=== PATIENT | male | born 1965 | race Caucasian/White ===

== ENCOUNTER 2020-10-11 12:41 | Emergency (ER) | payer BC, SELFPAY ==
--- NOTE | ~2020-10-11 | CT_ITS ---
EXAMINATION: CT ABDOMEN AND PELVIS WITH CONTRAST CLINICAL INFORMATION: Vomiting and bloody stools. Evaluate for colitis. COMPARISON: None TECHNIQUE: Multidetector volumetric images were obtained from the superior aspect of the liver through the pubic symphysis following administration 85 mL of Omnipaque 350 intravenous contrast. Sagittal and coronal reformatted images were obtained on the technologist's workstation. Oral contrast: No This CT examination was performed using dose optimization techniques as appropriate, variously including the following: *Automated exposure control *Adjustment of mA and/or kV according to patient size (this includes techniques or standardized protocols for targeted exams where dose is matched to indication/reason for exam; i.e. extremities or head) *Use of iterative reconstruction technique DLP: 889 mGy-cm FINDINGS: LUNG BASES: The visualized lung bases are unremarkable. LIVER, GALLBLADDER, AND BILIARY TREE: The liver is normal in size, shape, and attenuation. Scattered hepatic cysts. There are a few hypodensities which are too small to characterize but statistically also represent cysts. No suspicious liver lesions. No intra or extrahepatic biliary dilatation. Gallbladder unremarkable. PANCREAS: Unremarkable. SPLEEN: Unremarkable. ADRENAL GLANDS: Unremarkable. KIDNEYS AND URETERS: The kidneys are normal in size, shape, and attenuation. Subcentimeter cyst, right kidney. No hydronephrosis, hydroureter, or calculi seen. No perinephric stranding. BLADDER: Unremarkable. GASTROINTESTINAL TRACT: There is a large amount of fluid within the stomach. The small and large bowel are unremarkable. The appendix is unremarkable. Mild hazy increased attenuation of the small bowel mesentery with perivascular sparing. ABDOMINAL WALL: No significant hernia is appreciated. LYMPH NODES: Normal. VASCULAR: Unremarkable. PELVIC VISCERA: Prostate and seminal vesicles unremarkable. OSSEOUS STRUCTURES: No acute or suspicious osseous abnormalities. CT/CT abdomen pelvis w con IMPRESSION: * No evidence of colitis. * No acute intra-abdominal pathology. * Minimal haziness of the small bowel reflective of mild mesentery panniculitis, nonspecific.
--- NOTE | ~2020-10-11 | XR_ITS ---
EXAMINATION: XR CHEST CLINICAL INFORMATION: Vomiting. Rule out esophageal rupture. COMPARISON: None TECHNIQUE: 2 views of the chest were obtained. FINDINGS: There is a small left pleural effusion. No pneumothorax or pneumomediastinum is evident. The left lung is clear. The heart and mediastinal structures are normal. A nodular density overlying the posterior aspect of the right ninth rib measures 0.9 cm. This could represent nipple shadow or confluence of shadows. Pulmonary nodule is not excluded. The right lung is otherwise clear. XR/XR chest 2V IMPRESSION: 1. Small left pleural effusion, nonspecific. If there is ongoing concern for esophageal rupture, contrast examination the esophagus would be helpful. 2. 0.9 cm nodular density at the right lung base of undetermined significance. CT scan is suggested in further assessment.
[2020-10-11 12:56] VITALS: BP 138/69; PULSE 86; RESP 18; O2SAT 96; BMI 33.6
[2020-10-11 13:09] VITALS: BP 138/69; PULSE 86; RESP 18; TEMP 36.4; O2SAT 96
--- NOTE | 2020-10-11 13:13 | ED.NAVMDI ---
HPI - Nausea/Vomiting/Diarrhea General Chief complaint: Nausea/Vomiting/Diarrhea Stated complaint: n/v/d Time Seen by Provider: 10/11/20 12:42 Source: patient and EMS Mode of arrival: EMS Limitations: no limitations History of Present Illness HPI Narrative: 54 yo male with past medical history of hypothyroidism, depression, GERD here with complaints of nausea/vomiting/diarrhea/generalized abdominal cramping since 1am. Last night he made some brisket which he ate with friends. All friends are well with no reported GI symptoms. Had some reflux and nausea after which patient tells me is uncommon for him. Woke up at 1am with vomiting/diarrhea/abdominal cramping. Patient tells me he has had 13 episodes of diarrhea which is blood streaked and mucousy. No clots. Had 5 episodes of vomiting and last episode of vomiting was blood streaked. No chest pain, shortness of breath. 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 No anticoagulation use. On baby ASA daily. Recent low back pain which he has been taking naproxen BID for this past week. No alcohol use. No GI Bleed history. No fevers, chills, recent travel. Feels generally weak. Associated nausea: Yes Related Data Previous Rx's Medication Instructions Recorded dicyclomine 10 mg PO TID PRN #15 cap 10/11/20 ondansetron 4 mg PO Q6H PRN #10 tab 10/11/20 Allergies Allergy/AdvReac Type Severity Reaction Status Date / Time codeine Allergy Unknown unknown Verified 10/11/20 13:11 mint Allergy Unknown unknown Verified 10/11/20 13:11 Review of Systems Review of Systems: Yes all other systems are reviewed and are negative Constitutional: Constitutional: Reports no additional constitutional complaints, Denies body ache(s), Denies chills, Denies fever(s), Denies headache(s) and Denies weakness Eyes: Eyes: Reports no additional eye complaints and Denies change in vision ENT: Reports system reviewed and no additional complaints, except as documented, Denies dizziness, Denies headache(s), Denies nasal congestion, Denies nasal discharge and Denies neck pain Cardiovascular: Cardiovascular: Reports no additional cardiovascular complaints, Denies chest pain, Denies leg edema and Denies dyspnea Respiratory: Respiratory: Reports no additional respiratory complaints, Denies cough and Denies dyspnea Gastrointestinal: Gastrointestinal: Reports no additional gastrointestinal complaints, Reports abdominal pain, Reports hematochezia, Reports diarrhea, Reports nausea and Reports vomiting Genitourinary: Genitourinary: Denies urinary incontinence Musculoskeletal: Musculoskeletal: Reports no additional musculoskeletal complaints, Denies back pain, Denies arthralgias, Denies joint swelling, Denies neck pain, Denies numbness and Denies tingling Integumentary/Breasts: Skin/Breast: Reports system reviewed and no additional complaints, except as docu and Denies rash Neurologic: Reports system reviewed and no additional complaints, except as documented, Denies Abnormal speech present, Denies dizziness, Denies headache(s), Denies numbness, Denies tingling and Denies weakness PMF Past Medical History Attestation statement: The following information was validated with the patient. Source: old records reviewed and nursing notes reviewed Medical History Depression GERD (gastroesophageal reflux disease) Hypothyroidism Social History Social History Advance Directives: No Advance Directives Information Provided: No Physical Exam Vital Signs: Vital Signs: Last Vital Signs Temp 97.7 F 10/11/20 15:12 Pulse 93 10/11/20 15:12 Resp 16 10/11/20 15:12 BP 109/71 10/11/20 15:12 Pulse Ox 97 10/11/20 15:12 Body Mass Index 33.6 Const: General: cooperative, healthy appearing, comfortable and no acute distress Orientation/consciousness: patient oriented x3 Limitations: no limitations HENMT: Head: Yes normal to inspection Ears: hearing grossly normal bilaterally General nose exam: Normal external nose present Face and sinus: Yes normal facial exam Mouth: Normal oral and palatal mucosa present Throat: Yes posterior oropharynx normal Eyes: General: appearance normal, both eyes and all related structures Pupils: Equal, round and reactive pupils present Neck: Neck: Yes normal visual inspection Chest: Chest palpation & inspection: normal inspection of the chest Resp: Effort & Inspection: normal respiratory effort Auscultation: clear to auscultation bilaterally Cardio: Rate: regular rate Rhythm: regular rhythm Peripheral pulses: Peripheral pulses 2+ throughout GI: Other: Mild diffuse tenderness, no rebound or guarding. Inspection: Yes normal to inspection Palpation (GI): Soft to palpation, not firm, Tenderness to palpation present (GI) (diffusely) and no guarding Auscultation: normal bowel sounds Rectal Exam - Male: Yes Visual inspection abnormal, Yes normal sphincter tone and Yes Abnormal stool present (mucousy blood) Back/Spine/Pelvis: Thoracic/Lumbar Spine: thoracic and lumbar spine normal to inspection Skin: General skin exam: no rashes or lesions noted Neuro: General: patient oriented x3, no focal motor deficits and normal sensation to monofilament Cranial nerves: Yes Equal, round and reactive pupils present Cognition (Neuro): normal cognition Speech: No Abnormal speech present Gait exam (Neuro): Normal gait present Motor exam (neuro): 5/5 motor strength present throughout Extrem: General: Yes normal to inspection Course Course Course Narrative: 54 yo male here with vomiting, diarrhea, generalized abdominal cramping for <24 hrs. Reports of bloody mucousy stools and one episode of blood streaked vomiting. Patient tells me this occurred after 4 episodes of forceful retching. On exam HD stable. Mild diffuse abdominal tenderness. +heme stool (mucousy blood). No chest pain. Will need labs including lactic acid, UA, occult stool, COVID screen, CXR. 1345-WBC 18.1 from viral infection, multiple episodes of vomiting. 1440-Labs reassuring. Patient feeling improved. Will continue with IV fluids, then attempt PO trial. 1545-Returning colicky AP. D/t persistent pain will check CT A/P. No additional episodes of diarrhea/vomiting. Will repeat dose of analgesia. 1654-CT A/P unremarkable. Likely viral syndrome. Given bentyl with + effect. No additional diarrhea/vomiting during ED stay (>5 hrs). Reviewed worrisome signs/symptoms with patient and when to return to ED. Comfortable with discharge home. MDM - Nausea/Vomiting/Diarrhea MDM Narrative Medical decision making narrative: HUS, Boerhaave syndrome, GI Bleed Less likely HUS with no additional episodes, normal renal functio Less likely Boerhaave syndrome with normal CXR, no additional vomiting episodes, no chest pain/sob, HD stable Less likely GI bleed with no additional episodes, no risk factors for GI bleeding w/ exception of PRN NSAID use, normal hgb/BUN. Differential Diagnosis Differential diagnosis: Likely gastroenteritis Medical Records Attestation: I reviewed the patient's medical records. Lab Data Attestation: I reviewed the patient's lab results. Result diagrams: 10/11/20 13:20 10/11/20 13:20 Labs: Lab Results 10/11/20 10/11/20 10/11/20 Range/Units 13:20 13:20 13:20 WBC 18.1 H (4.8-10.8) X10*3/uL RBC 6.68 H (4.60-5.80) X10*6/uL Hgb 20.5 H (14.0-18.0) g/dl Hct 62.2 H (42-52) % MCV 93.1 (80-98) fL MCH 30.7 (27.0-33.0) pg MCHC 33.0 (31.0-36.0) g/dl RDW 11.9 (11.0-16.0) % Plt Count 293 (160-400) X10*3/uL MPV 10.6 (9.4-12.4) fL Immature Gran % (Auto) 0.4 (0.0-0.4) % Neut % (Auto) 83.1 H (45-73) % Lymph % (Auto) 6.3 L (20-40) % [place] % (Auto) 3.4 (2-11) % Eos % (Auto) 6.5 H (0-4) % Baso % (Auto) 0.3 (0-2) % Lymph # (Auto) 1.1 L (1.2-4.9) X10*3/uL [place] # (Auto) 0.6 (0.1-1.2) X10*3/uL Eos # (Auto) 1.2 H (0.0-0.4) X10*3/uL Baso # (Auto) 0.1 (0.0-0.2) X10*3/uL Abs Immat Gran (auto) 0.07 H (0.00-0.03) X10*3/uL Absolute Neuts (auto) 15.1 H (2.0-8.3) X10*3/uL Absolute Nucleated RBC 0.000 (0.0-0.012) X10*3/uL Nucleated RBC % (auto) 0.0 (0.0-0.2) /100WBC PT 13.6 H (10.8-13.0) SEC INR 1.1 (0.9-1.1) Sodium 138 (135-145) mmol/L Potassium 4.6 (3.3-5.1) mmol/L Chloride 99 (96-108) mmol/L Carbon Dioxide 29 (22-29) mmol/L Anion Gap 15 (12-20) BUN 19 H (9-16) mg/dL Creatinine 1.26 (0.5-1.4) mg/dL Estim Creat Clear Calc 85.7 Estimated GFR 59 Random Glucose 172 H (60-115) mg/dL Lactic Acid (0.5-2.0) mmol/L Calcium 9.5 (8.4-10.2) mg/dL Total Bilirubin 0.8 (0.0-1.0) mg/dL Direct Bilirubin 0.3 (0.0-0.5) mg/dL AST 20 (5-37) U/L ALT 11 (0-40) U/L Alkaline Phosphatase 114 (39-117) U/L Total Protein 7.5 (6.5-8.0) g/dL Albumin 4.5 (3.5-5.0) g/dL Stool Occult Blood (NEGATIVE) COVID-19 ([place]) (Negative) COVID-19 Clin Com 10/11/20 10/11/20 10/11/20 Range/Units 13:20 13:20 13:20 WBC (4.8-10.8) X10*3/uL RBC (4.60-5.80) X10*6/uL Hgb (14.0-18.0) g/dl Hct (42-52) % MCV (80-98) fL MCH (27.0-33.0) pg MCHC (31.0-36.0) g/dl RDW (11.0-16.0) % Plt Count (160-400) X10*3/uL MPV (9.4-12.4) fL Immature Gran % (Auto) (0.0-0.4) % Neut % (Auto) (45-73) % Lymph % (Auto) (20-40) % [place] % (Auto) (2-11) % Eos % (Auto) (0-4) % Baso % (Auto) (0-2) % Lymph # (Auto) (1.2-4.9) X10*3/uL [place] # (Auto) (0.1-1.2) X10*3/uL Eos # (Auto) (0.0-0.4) X10*3/uL Baso # (Auto) (0.0-0.2) X10*3/uL Abs Immat Gran (auto) (0.00-0.03) X10*3/uL Absolute Neuts (auto) (2.0-8.3) X10*3/uL Absolute Nucleated RBC (0.0-0.012) X10*3/uL Nucleated RBC % (auto) (0.0-0.2) /100WBC PT (10.8-13.0) SEC INR (0.9-1.1) Sodium (135-145) mmol/L Potassium (3.3-5.1) mmol/L Chloride (96-108) mmol/L Carbon Dioxide (22-29) mmol/L Anion Gap (12-20) BUN (9-16) mg/dL Creatinine (0.5-1.4) mg/dL Estim Creat Clear Calc Estimated GFR Random Glucose (60-115) mg/dL Lactic Acid 1.9 (0.5-2.0) mmol/L Calcium (8.4-10.2) mg/dL Total Bilirubin (0.0-1.0) mg/dL Direct Bilirubin (0.0-0.5) mg/dL AST (5-37) U/L ALT (0-40) U/L Alkaline Phosphatase (39-117) U/L Total Protein (6.5-8.0) g/dL Albumin (3.5-5.0) g/dL Stool Occult Blood POSITIVE (NEGATIVE) COVID-19 ([place]) Negative (Negative) COVID-19 Clin Com See Note Imaging Data Chest x-ray: Attestation: I personally reviewed and interpreted this imaging study as follows: Radiologist's impression: XAMINATION: XR CHEST CLINICAL INFORMATION: Vomiting. Rule out esophageal rupture. COMPARISON: None TECHNIQUE: 2 views of the chest were obtained. FINDINGS: There is a small left pleural effusion. No pneumothorax or pneumomediastinum is evident. The left lung is clear. The heart and mediastinal structures are normal. A nodular density overlying the posterior aspect of the right ninth rib measures 0.9 cm. This could represent nipple shadow or confluence of shadows. Pulmonary nodule is not excluded. The right lung is otherwise clear. XR/XR chest 2V IMPRESSION: 1. Small left pleural effusion, nonspecific. If there is ongoing concern for esophageal rupture, contrast examination the esophagus would be helpful. 2. 0.9 cm nodular density at the right lung base of undetermined significance. CT scan is suggested in further assessment. CT scan - abdomen: Attestation: I personally reviewed and interpreted this imaging study as follows: Radiologist's impression: EXAMINATION: CT ABDOMEN AND PELVIS WITH CONTRAST CLINICAL INFORMATION: Vomiting and bloody stools. Evaluate for colitis. COMPARISON: None TECHNIQUE: Multidetector volumetric images were obtained from the superior aspect of the liver through the pubic symphysis following administration 85 mL of Omnipaque 350 intravenous contrast. Sagittal and coronal reformatted images were obtained on the technologist's workstation. Oral contrast: No This CT examination was performed using dose optimization techniques as appropriate, variously including the following: *Automated exposure control *Adjustment of mA and/or kV according to patient size (this includes techniques or standardized protocols for targeted exams where dose is matched to indication/reason for exam; i.e. extremities or head) *Use of iterative reconstruction technique DLP: 889 mGy-cm FINDINGS: LUNG BASES: The visualized lung bases are unremarkable. LIVER, GALLBLADDER, AND BILIARY TREE: The liver is normal in size, shape, and attenuation. Scattered hepatic cysts. There are a few hypodensities which are too small to characterize but statistically also represent cysts. No suspicious liver lesions. No intra or extrahepatic biliary dilatation. Gallbladder unremarkable. PANCREAS: Unremarkable. SPLEEN: Unremarkable. ADRENAL GLANDS: Unremarkable. KIDNEYS AND URETERS: The kidneys are normal in size, shape, and attenuation. Subcentimeter cyst, right kidney. No hydronephrosis, hydroureter, or calculi seen. No perinephric stranding. BLADDER: Unremarkable. GASTROINTESTINAL TRACT: There is a large amount of fluid within the stomach. The small and large bowel are unremarkable. The appendix is unremarkable. Mild hazy increased attenuation of the small bowel mesentery with perivascular sparing. ABDOMINAL WALL: No significant hernia is appreciated. LYMPH NODES: Normal. VASCULAR: Unremarkable. PELVIC VISCERA: Prostate and seminal vesicles unremarkable. OSSEOUS STRUCTURES: No acute or suspicious osseous abnormalities. CT/CT abdomen pelvis w con IMPRESSION: * No evidence of colitis. * No acute intra-abdominal pathology. * Minimal haziness of the small bowel reflective of mild mesentery panniculitis, nonspecific. Discharge Plan Discharge Clinical Impression: Gastroenteritis Patient Disposition: Home, Self-Care Instructions: Gastroenteritis (ED) Additional Instructions: [place] diet today Increase fluids for fluid losses Return for severe bleeding, severe abdominal pain, fever >100.4 as discussed Prescriptions: New dicyclomine 10 mg capsule 10 mg PO TID PRN (Reason: abdominal pain) Qty: 15 RF: 0 ondansetron 4 mg tablet,disintegrating 4 mg PO Q6H PRN (Reason: nausea and vomiting) Qty: 10 RF: 0 Referrals: Damari Vogt MD [Primary Care Provider] - 2 days (if not better ) Stand Alone Forms: Work/School Release Interventions: ED Discharge Assessment Last Done: 10/11/20 17:55 Discharge Date/Time: 10/11/20 17:55
[2020-10-11 13:27] LABS: MANUAL DIFF FLAG NO
[2020-10-11 13:29] LABS: Basophils Absolute Auto 0.1 X10*3/uL (0.0-0.2); Basophils Percent Auto 0.3 % (0-2); Eosinophils Absolute Auto 1.2 X10*3/uL (0.0-0.4); Eosinophils Percent Auto 6.5 % (0-4); Imm Gran Abs Auto 0.07 X10*3/uL (0.00-0.03); Imm Gran Pct Auto 0.4 % (0.0-0.4); Lymphocytes Absolute Auto 1.1 X10*3/uL (1.2-4.9); Lymphocytes Percent Auto 6.3 % (20-40); Mean Corpuscular Hemoglobin 30.7 pg (27.0-33.0); Mean Corpuscular Volume 93.1 fL (80-98); Mean Platelet Volume 10.6 fL (9.4-12.4); Monocytes Absolute Auto 0.6 X10*3/uL (0.1-1.2); Monocytes Percent Auto 3.4 % (2-11); Neutrophils Absolute Auto 15.1 X10*3/uL (2.0-8.3); Neutrophils Percent Auto 83.1 % (45-73); Platelet Count 293 X10*3/uL (160-400); Red Blood Count 6.68 X10*6/uL (4.60-5.80); Red Cell Distribution Width 11.9 % (11.0-16.0); White Blood Count 18.1 X10*3/uL (4.8-10.8)
[2020-10-11 13:30] LABS: OBS Int Ctl Valid YES; OBS1 POSITIVE (NEGATIVE)
[2020-10-11 13:32] LABS: Hemoglobin 20.5 g/dl (14.0-18.0)
[2020-10-11 13:33] LABS: Hematocrit 62.2 % (42-52)
[2020-10-11 13:40] LABS: Prothrombin Time 13.6 SEC (10.8-13.0)
[2020-10-11] MEDS: 0.9 % Sodium Chloride 1,000 ML 999 ML IV (13:40)
[2020-10-11 13:42] LABS: INTERNATIONAL NORM RATIO 1.1 (0.9-1.1)
[2020-10-11 13:44] LABS: Lactic Acid 1.9 mmol/L (0.5-2.0)
[2020-10-11] MEDS: Morphine Sulfate 4 MG/ML CARTRIDGE IVPUSH ×2 (13:45→16:05)
[2020-10-11] MEDS: ondansetron HCL 4 MG/2 ML VIAL IVPUSH (13:46)
[2020-10-11 13:49] LABS: Alanine Aminotransferase 11 U/L (0-40); Albumin Level 4.5 g/dL (3.5-5.0); Alkaline Phosphatase 114 U/L (39-117); Anion Gap 15 (12-20); Aspartate Amino Transferase 20 U/L (5-37); Bilirubin Direct 0.3 mg/dL (0.0-0.5); Bilirubin Total 0.8 mg/dL (0.0-1.0); Blood Urea Nitrogen 19 mg/dL (9-16); Calcium 9.5 mg/dL (8.4-10.2); Carbon Dioxide 29 mmol/L (22-29); Chloride 99 mmol/L (96-108); Creatinine Clr Calc Pharmacy 85.7; Estimated Glomerular Filt Rate 59; Glucose Random 172 mg/dL (60-115); Potassium 4.6 mmol/L (3.3-5.1); Sodium 138 mmol/L (135-145); Total Protein 7.5 g/dL (6.5-8.0)
[2020-10-11 13:55] LABS: COVID-19 Test Negative (Negative)
[2020-10-11 15:12] VITALS: BP 109/71; PULSE 93; RESP 16; TEMP 36.5; O2SAT 97
[2020-10-11] MEDS: Dicyclomine HCl 10 MG CAPSULE 20 MG PO (17:21)
== END 2020-10-11 17:55 | disposition home or self-care (01) ==
PROVIDERS: Nurse Practitioner Family; Emergency Provider Emergency Medicine; PCP Family Medicine
DX: K52.9 Noninfective gastroenteritis and colitis, unspecified (principal); Z20.822 Contact with and (suspected) exposure to COVID-19; R11.2 Nausea with vomiting, unspecified; K21.9 Gastro-esophageal reflux disease without esophagitis
CPT/HCPCS: 36415; 71046; 74177; 80048; 80076; 82272; 83605; 85025; 85060; 85610; 87635; 96361; 96374; 96375; 96376; 99284; J2270; J2405; Q9967

== ENCOUNTER 2021-04-04 06:42 | Emergency (ER) | payer BC, SELFPAY ==
--- NOTE | ~2021-04-04 | XR_ITS ---
EXAMINATION: XR LUMBOSACRAL SPINE CLINICAL INFORMATION: Lumbar pain. COMPARISON: CT dated 10/11/2020 TECHNIQUE: AP and lateral views of the lumbar spine and lateral view of the lumbosacral junction. FINDINGS: Vertebral body heights are normal. No fracture or spondylolisthesis. Confluent bridging osteophytes at the anterior aspect of the lower thoracic and upper lumbar spine are consistent with diffuse idiopathic skeletal hyperostosis there is moderate facet arthropathy in the lower lumbar spine. Mild multilevel degenerative disc disease with minimal loss of intervertebral disc height. SI joints are normal. No aggressive osseous abnormalities. Soft tissues are unremarkable. XR/XR lumbar spine 2-3V IMPRESSION: Mild multilevel degenerative spondylosis in the lumbar spine with findings of diffuse idiopathic skeletal hyperostosis (DISH) in the lower thoracic and upper lumbar spine. No acute findings.
[2021-04-04 06:50] VITALS: BP 130/76; PULSE 81; RESP 16; TEMP 35.6; O2SAT 97; BMI 38.6
--- NOTE | 2021-04-04 06:58 | ED.BACK ---
HPI - Back Pain/Injury General Chief Complaint: Back Pain/Injury Stated Complaint: Back pain Time Seen by Provider: 04/04/21 06:46 Source: patient Mode of arrival: ambulatory Limitations: no limitations History of Present Illness HPI Narrative: Patient comes emergency room complaining of lower back pain for 1 week. Patient states it is intermittent, very sharp with certain movements, stays in the right lumbar area. No radiation towards the lower extremities, no midline pain. Patient states he was seen at [facility] 1 week ago, given muscle relaxants and NSAIDs. Patient states that he is still having the same pain. Patient states that he is able to sleep better, but when he wakes up, the pain is present. Patient denies urinary retention/incontinence. Related Data Previous Rx's Medication Instructions Recorded dicyclomine 10 mg capsule 10 mg PO TID PRN #15 cap 10/11/20 ondansetron 4 mg disintegrating 4 mg PO Q6H PRN #10 tab 10/11/20 tablet Allergies Allergy/AdvReac Type Severity Reaction Status Date / Time codeine Allergy Unknown unknown Verified 10/11/20 13:11 mint Allergy Unknown unknown Verified 10/11/20 13:11 amoxicillin [From Augmentin] Allergy Unknown Verified 04/04/21 06:53 clavulanic acid Allergy Unknown Verified 04/04/21 06:53 [From Augmentin] Review of Systems Review of Systems: Constitutional : No Weight loss, No Fever, No Chills, No Night Sweats, No Fatigue, No Malaise ENT/Mouth : No Hearing loss, No Ear Pain, No Nasal Congestion, No Sinus Pain, No Hoarseness, No sore throat, No Rhinorrhea, No Swallowing Difficulty Eyes: No Eye Pain, No Swelling, No Redness, No Foreign Body, No Discharge, No Vision Changes Cardiovascular : No Chest Pain, No SOB, No Dyspnea on Exertion, No Orthopnea, No Edema, No Palpitations Respiratory : No Cough, No Sputum, No Wheezing, No Smoke Exposure, No Dyspnea Gastrointestinal : No Nausea, No Vomiting, No Diarrhea, No Constipation, No abdominal Pain, No Hematochezia, No Melena Genitourinary : no irregular bleeding, No Dysuria, No Urinary Frequency, No Hematuria, No Urinary Incontinence, No Urgency, No Flank Pain, No Urinary Flow Changes, No Hesitancy Musculoskeletal : No joint pain, No Myalgias, No Joint Swelling, complaining of lower back right side Skin : No Skin Lesions, No rash Neuro : No Weakness, No Numbness, No Paresthesias, No Loss of Consciousness, No Dizziness, No Headache Psych : No Anxiety/Panic, No Depression, No SI/HI/AH/VH, No Social Issues, Heme/Lymph: No Bruising, No Bleeding,No Lymphadenopathy Endocrine : No Polyuria, No Polydipsia, No Temperature Intolerance PMFSH Past Medical History Medical History Depression GERD (gastroesophageal reflux disease) Hypothyroidism Social History Social History Advance Directives: No Physical Exam Vital Signs: Vital Signs: Last Vital Signs Temp 96.1 F L 04/04/21 06:50 Pulse 81 04/04/21 06:50 Resp 16 04/04/21 06:50 BP 130/76 04/04/21 06:50 Pulse Ox 97 04/04/21 06:50 Body Mass Index 38.6 Const: Other: Appearance: Alert. Oriented X3. No acute distress. Eyes: Pupils equal, round and reactive to light. ENT: Pharynx normal. Neck: Normal inspection. Neck supple. No lymph nodes noted. No crepitus CVS: Normal heart rate and rhythm. Pulses normal. Normal S1 and S2 Respiratory: No respiratory distress. Breath sounds normal. No Wheezing. No rales Abdomen: Soft and nontender. No rigidity. No distention. Back: Pain to palpation in the right side of the back, lumbar area, no mid spine tenderness, no hip tenderness, no radiation of the pain to the lower extremities Skin: Skin warm and dry. Normal skin color. Normal skin turgor. Extremities: No lower extremity edema. No lower extremity edema. No Lacerations. No Rash Neuro: Oriented X 3. No motor deficit. No sensory deficit. Moving all extermities. No slurred speech. Course Course Course Narrative: I discussed with the patient that his pain is musculoskeletal in nature, given that it has been over a week, he would probably benefit from physical therapy. Patient is very adamant that there is something wrong with his bones. I discussed with the patient that the area where he is hurting, there were no bones there. I agreed to order an x-rays for the patient to give him peace of mind I discussed x-ray findings with the patient, nothing acute that would explain his pain. As mentioned above, I discussed with the patient that his pain is likely musculoskeletal., he will benefit from physical therapy. MDM - Back Pain/Injury Lab Data Labs: Lab Results 04/04/21 Range/Units 07:28 Urine Color YELLOW Urine Appearance CLEAR Urine pH 6.0 (5.0-8.0) Ur Specific [place] 1.025 (1.005-1.025) Urine Protein NEG (NEG-TRACE) MG/DL Urine Glucose (UA) NEG (NEG) MG/DL Urine Ketones NEG (NEG) MG/DL Urine Blood NEG (NEG) Urine Nitrite NEG (NEG) Ur Leukocyte Esterase NEG (NEG) Discharge Plan Discharge Clinical Impression: Musculoskeletal back pain Patient Disposition: Home, Self-Care Instructions: Back Pain (ED) Prescriptions: No Action dicyclomine 10 mg capsule 10 mg PO TID PRN (Reason: abdominal pain) Qty: 15 RF: 0 ondansetron 4 mg tablet,disintegrating 4 mg PO Q6H PRN (Reason: nausea and vomiting) Qty: 10 RF: 0
[2021-04-04 07:41] LABS: Appearance Urine CLEAR; Color Urine YELLOW; Glucose Urine UA NEG (NEG); Leukocyte Esterase Urine NEG (NEG); Nitrite Urine NEG (NEG); Specific Gravity - Urine 1.025 (1.005-1.025); Urine Blood NEG (NEG); Urine Ketones NEG (NEG); Urine Protein NEG (NEG-TRACE)
[2021-04-04] MEDS: Ketorolac Tromethamine 60 MG/2 ML VIAL IM (07:55)
== END 2021-04-04 08:40 | disposition home or self-care (01) ==
PROVIDERS: Emergency Provider Emergency Medicine; PCP Family Medicine
DX: M54.5 Low back pain (principal); Z79.899 Other long term (current) drug therapy
CPT/HCPCS: 72100; 81003; 96372; 99283; 99284; J1885

== ENCOUNTER 2023-01-10 22:45 | Observation (INO) | payer BC, SELFPAY ==
--- NOTE | ~2023-01-10 | XR_ITS ---
EXAMINATION: XR CHEST CLINICAL INFORMATION: Chest pain COMPARISON: None available. TECHNIQUE: 2 views of the chest were obtained. FINDINGS: No significant abnormality is noted involving the heart, lungs, mediastinum, bony thorax or soft tissues. XR/XR chest 2V IMPRESSION: Unremarkable chest examination.
[2023-01-10 22:46] VITALS: BP 128/76; PULSE 117; RESP 24; TEMP 36.6; O2SAT 96; BMI 35.3
--- NOTE | 2023-01-10 22:51 | ECG_ITS ---
Test Reason : chest pain Blood Pressure : / mmHG Vent. Rate : 109 BPM Atrial Rate : 109 BPM P-R Int : 126 ms QRS Dur : 132 ms QT Int : 350 ms P-R-T Axes : 061 051 015 degrees QTc Int : 471 ms Sinus tachycardia Right bundle branch block Possible Inferior infarct , age undetermined Abnormal ECG No previous ECGs available Referred By: Generic ED Physician Electronically Signed By:JUANY CHE
--- NOTE | 2023-01-10 23:07 | MHC.EDTECH ---
PATIENT EKG DONE AND WAS READ BY PROVIDER ,BLOOD DRAWN AND SENT TO LAB.
[2023-01-10 23:11] LABS: MANUAL DIFF FLAG NO
[2023-01-10 23:12] LABS: Basophils Absolute Auto 0.1 X10*3/uL (0.0-0.2); Basophils Percent Auto 0.3 % (0-2); Eosinophils Absolute Auto 0.1 X10*3/uL (0.0-0.4); Eosinophils Percent Auto 0.7 % (0-4); Hemoglobin 17.4 g/dl (14.0-18.0); Imm Gran Abs Auto 0.09 X10*3/uL (0.00-0.03); Imm Gran Pct Auto 0.6 % (0.0-0.4); Lymphocytes Absolute Auto 3.8 X10*3/uL (1.2-4.9); Lymphocytes Percent Auto 25.7 % (20-40); Mean Corpuscular HGB Conc 33.5 g/dl (31.0-36.0); Mean Corpuscular Volume 89.7 fL (80.0-98.0); Mean Platelet Volume 10.3 fL (9.4-12.4); Monocytes Absolute Auto 0.9 X10*3/uL (0.1-1.2); Monocytes Percent Auto 6.2 % (2-11); Neutrophils Absolute Auto 9.7 x10*3/uL (2.0-8.3); Neutrophils Percent Auto 66.5 % (45-73); Platelet Count 267 X10*3/uL (160-400); Red Cell Distribution Width 13.1 % (11.0-16.0); White Blood Count 14.6 X10*3/uL (4.8-10.8)
[2023-01-10 23:26] LABS: Anion Gap 16 (12-20); Blood Urea Nitrogen 16 mg/dL (9-16); Calcium 9.3 mg/dL (8.4-10.2); Carbon Dioxide 24 mmol/L (22-29); Chloride 104 mmol/L (96-108); Creatinine Clr Calc Pharmacy 125.5; Estimated Glomerular Filt Rate > 60; Glucose Random 193 mg/dL (60-115); Potassium 3.9 mmol/L (3.3-5.1); Sodium 140 mmol/L (135-145)
[2023-01-10 23:32] LABS: Troponin-I High Sensitivity 36.4 ng/L (<3.5-35.0)
[2023-01-10 23:37] VITALS: BP 123/60; PULSE 95; RESP 22; O2SAT 94
[2023-01-11] VITALS (9 sets, daily range): BP systolic 109–134; BP diastolic 60–79; PULSE 80–99; RESP 16–21; TEMP 36.2–36.7; O2SAT 93–97; BMI 35.7
--- NOTE | 2023-01-11 00:04 | MHC.EDTECH ---
This tech assumed care of pt, Patient placed on the night monitor,Vitals done, and patient is in hospital attire
--- NOTE | 2023-01-11 00:27 | ED_ITS ---
HPI - Chest Pain General Chief Complaint: Chest Pain Stated Complaint: chest pain Time Seen by Provider: 01/10/23 23:49 Source: patient Mode of arrival: ambulatory Limitations: no limitations History of Present Illness HPI narrative: Patient is a 49-year-old male presents emergency department for evaluation of chest pain. Patient reports that he was admitted to [facility] December 30-January 02 for URI/COPD exacerbation. He was seen by his primary care provider January 05 and was advised to hold his metoprolol at that time as it was thought that this may be worsening his COPD/respiratory symptoms. He states overall his shortness of breath/respiratory symptoms were improving. Yesterday night wall laying down in bed he had sudden onset of severe substernal chest pain described as a tightness with increased shortness of breath. He tried to use his nebulizer without significant improvement. Tonight at approximately 2200 he reports some sternal chest pain worsening and radiating into the jaw and left arm. His gave him 6 baby aspirin, he took an old sublingual nitro which did give him some improvement. Reports a prior cardiology workup approximately 5 years ago which was unremarkable. He does report that his father is from an [place] at the age of 52. Currently pain is 6/10. He denies headache, vision changes, dizziness, lightheadedness, neck pain, neck stiffness, back pain, nausea, vomiting, abdominal pain numbness or tingling of the extremities, weakness. Related Data Home Medications Medication Instructions Recorded Confirmed alprazolam 1 mg tablet 1 mg PO BID PRN Sleep 01/10/23 01/10/23 aspirin 81 mg chewable tablet 1 tab PO DAILY 01/10/23 01/10/23 ipratropium 0.5 mg-albuterol 3 mg 3 ml inhalation Q6H PRN wheezing 01/10/23 01/10/23 (2.5 mg base)/3 mL nebulization soln metoprolol succinate 50 mg 50 mg PO DAILY 01/10/23 01/10/23 tablet,extended release 24 hr paroxetine HCl 25 mg 25 mg PO DAILY 01/10/23 01/10/23 tablet,extended release 24 hr prednisone 20 mg tablet mg PO 01/10/23 Allergies Allergy/AdvReac Type Severity Reaction Status Date / Time codeine Allergy Unknown unknown Verified 01/10/23 23:52 mint Allergy Unknown unknown Verified 01/10/23 23:52 amoxicillin [From Augmentin] Allergy Unknown Verified 01/10/23 23:52 clavulanic acid Allergy Unknown Verified 01/10/23 23:52 [From Augmentin] Review of Systems Review of Systems: Yes all other systems are reviewed and are negative [facility] Past Medical History Attestation statement: The following information was validated with the patient. Source: old records reviewed Medical History Depression GERD (gastroesophageal reflux disease) Hypothyroidism Social History Social History Alcohol intake: never Patient Tobacco Use Status: Current everyday Tobacco user Smoked in Last 30 Days: Yes Use of substances other than those prescribed or required for medical reasons: No Advance Directives: No Advance Directives Information Provided: Yes Nutrition Risks: No Nutritional Risk Physical Exam Vital Signs: Vital Signs: Last Vital Signs Temp 98 F 01/10/23 22:46 Pulse 91 01/11/23 00:56 Resp 21 H 01/11/23 00:56 BP 109/61 01/11/23 00:56 Pulse Ox 95 01/11/23 00:56 O2 Del Method Room Air 01/10/23 23:37 BMI result Body Mass Index 35.3 Vital signs have been reviewed as normal and appeared to be correct. Blood pressure normal.? Heart rate normal.? Respiration rate normal. Temperature normal.? Oxygen saturation normal. Appearance: Alert.?Oriented to person, place and time. No acute distress.?Norm al affect. Eyes: Pupils equal, round and reactive to light.? ENT: Pharynx normal.?? Neck: Normal inspection.? Neck supple.?? CVS: Heart sounds normal. Normal heart rate and rhythm.? Pulses normal.?? Respiratory: No respiratory distress.? Lung sounds clear to auscultation bilaterally?? Abdomen: Soft and non-tender. Normoactive bowel sounds. No pulsatile mass.?? Skin: Skin warm and dry.? Normal skin color.? Normal skin turgor.?? Extremities: No lower extremity edema.? No calf ttp? Neuro: Moves all extremities spontaneously. Sensation intact bilaterally. CN II- XII intact. No focal neuro deficits. Ambulates with normal steady gait. Course Reevaluation(s) Reevaluation #1: Troponin is elevated 36.4, will obtain delta troponin at 0200, Will trial topical nitro for pain at this time. CBC revealing leukocytosis 14.6 without left shift, afebrile, nontoxic in appearance, no respiratory distress, at this time does not meet sepsis/SIRS criteria. Aspect elevation due to COPD exacerbation. Chest x-ray is without acute cardiopulmonary process, no evidence of pneumonia. Have consulted with cardiology; Dr. Hernandez, who recommends admission to medicine service at this time, currently no indication for heparin infusion. Will reach out to hospitalist service for admission Time: 00:46 Reevaluation #2: Patient updated on plan of care, accepted for admission to medicine service by Dr. Vázquez, patient reports after topical nitro administration chest pain completely resolved. He reports a brief episode of pain that lasted 1 minute and has since resolved again. Time: 01:02 Medications Administered Discontinued Medications Generic Name Dose Route Start Last Admin Trade Name Freq PRN Reason Stop Dose Admin Nitroglycerin 0.5 inch 01/11/23 00:32 01/11/23 00:39 Nitroglycerin 2 % Oint 1 Gm Packet TRANSDERMA 01/11/23 00:33 0.5 inch ONCE ONE Administration Medical Decision Making Medical Decision Making [facility] Narrative: Patient is a 57-year-old male with past medical history of COPD, GERD, hypertension, hypothyroidism presenting to emergency department for evaluation of chest pain as noted in HPI. He is overall well-appearing. No apparent respiratory distress. Nontoxic. Will obtain CBC to evaluate for leukocytosis/ anemia, CMP to evaluate for abnormal electrolytes /abnormal renal functio, EKG and troponin to evaluate for ischemia/ACS. Chest x-ray to evaluate for consolidation/ infiltrate/ mass/ pulmonary congestion. Differential Diagnosis Differential Diagnoses: The differential diagnosis associated with the presentation includes (ACS, AAA, dissection, STEMI, pulmonary embolism, pneumonia, pneumothorax, COPD exacerbation) Admission/Observation Consideration of admission/observation: Escalation of care including admission/observation considered Patient to be admitted to medical service as noted in course Consult Healthcare Provider Management of the patient was discussed with: Hospitalist (Dr. Vázquez) and Catastrophe Claims Supervisor (Cardiology Dr. Hernandez as noted in course) Lab Data [facility] Lab Attestation statement: I reviewed the patient's lab results. 01/10/23 23:04 01/10/23 23:05 Labs: Lab Results 01/10/23 01/10/23 01/10/23 Range/Units 23:04 23:04 23:05 WBC 14.6 H (4.8-10.8) X10*3/uL RBC 5.80 (4.60-5.80) X10*6/uL Hgb 17.4 (14.0-18.0) g/dl Hct 52.0 (42.0-52.0) % MCV 89.7 (80.0-98.0) fL MCH 30.0 (27.0-33.0) pg MCHC 33.5 (31.0-36.0) g/dl RDW 13.1 (11.0-16.0) % Plt Count 267 (160-400) X10*3/uL MPV 10.3 (9.4-12.4) fL Immature Gran % (Auto) 0.6 H (0.0-0.4) % Neut % (Auto) 66.5 (45-73) % Lymph % (Auto) 25.7 (20-40) % [place] % (Auto) 6.2 (2-11) % Eos % (Auto) 0.7 (0-4) % Baso % (Auto) 0.3 (0-2) % Lymph # (Auto) 3.8 (1.2-4.9) X10*3/uL [place] # (Auto) 0.9 (0.1-1.2) X10*3/uL Eos # (Auto) 0.1 (0.0-0.4) X10*3/uL Baso # (Auto) 0.1 (0.0-0.2) X10*3/uL Abs Immat Gran (auto) 0.09 H (0.00-0.03) X10*3/uL Absolute Neuts (auto) 9.7 H (2.0-8.3) x10*3/uL Absolute Nucleated RBC 0.000 (0.0-0.012) X10*3/uL Nucleated RBC % (auto) 0.0 (0.0-0.2) /100WBC Sodium 140 (135-145) mmol/L Potassium 3.9 (3.3-5.1) mmol/L Chloride 104 (96-108) mmol/L Carbon Dioxide 24 (22-29) mmol/L Anion Gap 16 (12-20) BUN 16 (9-16) mg/dL Creatinine 0.85 (0.5-1.4) mg/dL Estim Creat Clear Calc 125.5 Estimated GFR > 60 Random Glucose 193 H (60-115) mg/dL Calcium 9.3 (8.4-10.2) mg/dL Troponin I High Sens 36.4 H (<3.5-35.0) ng/L Independent Interpretation I performed an independent interpretation of an: Plain X-Ray (I personally interpreted chest x-ray and agree with radiologist impression) Radiology Impression Discussion of test interpretation with radiology: I have reviewed the radiologist's reading. Radiologist Impression: XR/XR chest 2V IMPRESSION: Unremarkable chest examination. Independent Historian Clinical information obtained from an independent historian. History obtained from or confirmed by: Spouse ( affirms history) External Record Review External record reviewed: Outpatient record Discharge Plan Discharge Clinical Impression: Acute non-ST elevation myocardial infarction (NSTEMI) Patient Disposition: Admitted As Inpatient
[2023-01-11] MEDS: Nitroglycerin 2 % Oint 1 GM Packet 0.5 INCH TRANSDERMA (00:39)
--- NOTE | 2023-01-11 00:42 | PC.NURSE ---
Nitro paste applied to pt per orders, will monitor for effect.
--- NOTE | 2023-01-11 00:57 | P.HPHOSP_ITS ---
History of Present Illness Date of Service: 01/11/23 Chief Complaint: Chest pain This is a 57-year-old male with pertinent history of mood disorder, essential hypertension, MAGALIS on CPAP, COPD not on home oxygen who presents to the emergency department for evaluation of chest discomfort. Patient states he had midsternal chest discomfort at 22:00 when he was laying down. It radiated to the jaw and left arm. Patient's gave him aspirin and nitroglycerin which helped with the pain. Patient states he had similar pain 1 night prior to presentation. It increased with exertion and subsided with rest. No history of CAD/ACS in the past. Patient states he underwent a cardiac workup 5 years ago which was bryson arently normal. His father from [place] at the age of 52. Patient denies diabetes or hyperlipidemia. No fever, chills, palpitations, shortness of breath, history of AFib, abdominal pain, changes in urinary or bowel habits. He recently saw his PCP about a week ago and his metoprolol was held as it was thought that the beta-allyssa was worsening his COPD. In the emergency department, cardiology was consulted who requested admission. Review of Systems Constitutional: Constitutional: Reports no additional constitutional complaints Cardiovascular: Cardiovascular: Reports chest pain Respiratory: Respiratory: Reports no additional respiratory complaints Gastrointestinal: Gastrointestinal: Reports no additional gastrointestinal complaints Genitourinary: Genitourinary: Reports no additional male genitourinary complaints [facility] Medical History Depression GERD (gastroesophageal reflux disease) Hypothyroidism Pertinent family history: Father with [place] at the age of 52 Social History Alcohol intake: never Patient Tobacco Use Status: Current everyday Tobacco user Smoked in Last 30 Days: Yes Use of substances other than those prescribed or required for medical reasons: No Advance Directives: No Advance Directives Information Provided: Yes Nutrition Risks: No Nutritional Risk Meds Allergies Allergy/AdvReac Type Severity Reaction Status Date / Time codeine Allergy Unknown unknown Verified 01/10/23 23:52 mint Allergy Unknown unknown Verified 01/10/23 23:52 amoxicillin [From Augmentin] Allergy Unknown Verified 01/10/23 23:52 clavulanic acid Allergy Unknown Verified 01/10/23 23:52 [From Augmentin] Home Medications Medication Instructions Recorded Confirmed Last Taken Type alprazolam 1 mg tablet 1 mg PO BID PRN Sleep 01/10/23 01/10/23 Unknown History aspirin 81 mg chewable tablet 1 tab PO DAILY 01/10/23 01/10/23 Unknown History ipratropium 0.5 mg-albuterol 3 mg 3 ml inhalation Q6H PRN wheezing 01/10/23 01/10/23 Unknown History (2.5 mg base)/3 mL nebulization soln metoprolol succinate 50 mg 50 mg PO DAILY 01/10/23 01/10/23 Unknown History tablet,extended release 24 hr paroxetine HCl 25 mg 25 mg PO DAILY 01/10/23 01/10/23 Unknown History tablet,extended release 24 hr prednisone 20 mg tablet mg PO 01/10/23 Unknown History Physical Exam Vital Signs and Narrative: Vital Signs: Last Vital Signs Temp 98 F 01/10/23 22:46 Pulse 99 01/11/23 00:39 Resp 22 H 01/10/23 23:37 BP 117/60 01/11/23 00:39 Pulse Ox 94 01/10/23 23:37 O2 Del Method Room Air 01/10/23 23:37 BMI result Body Mass Index 35.3 Middle-aged male lying in bed in no distress Neck supple, no JVD Regular rate and rhythm, S1-S2 heard Regular breath sounds bilaterally, no wheezing or crackles appreciated Abdomen soft nontender, no guarding, no rigidity Patient is awake, alert and oriented to self, place, time and person ; no focal motor deficit Psych: Normal mood No pedal edema Results Labs 01/10/23 23:04 01/10/23 23:05 Labs: Laboratory Results - last 24 hr 01/10/23 01/10/23 01/10/23 23:04 23:04 23:05 MCV 89.7 MCH 30.0 MCHC 33.5 RDW 13.1 Plt Count 267 MPV 10.3 Immature Gran % (Auto) 0.6 H Neut % (Auto) 66.5 Lymph % (Auto) 25.7 [place] % (Auto) 6.2 Eos % (Auto) 0.7 Baso % (Auto) 0.3 Lymph # (Auto) 3.8 [place] # (Auto) 0.9 Eos # (Auto) 0.1 Baso # (Auto) 0.1 Abs Immat Gran (auto) 0.09 H Absolute Neuts (auto) 9.7 H Absolute Nucleated RBC 0.000 Nucleated RBC % (auto) 0.0 Anion Gap 16 Estim Creat Clear Calc 125.5 Estimated GFR > 60 Random Glucose 193 H Calcium 9.3 Troponin I High Sens 36.4 H Imaging Radiologist's Impressions: Impressions Chest X-Ray 01/11/23 00:10 IMPRESSION: Unremarkable chest examination. Assessment and Plan (1) Chest pain: Status: Acute Plan This is a 57-year-old male with pertinent history of mood disorder, essential hypertension, MAGALIS on CPAP, COPD not on home oxygen who presents to the emergency department for evaluation of chest discomfort. #. Typical chest pain. Will admit patient with quality assurance monitor body. Cardiology was consulted from the ER, appreciate assistance. Trend troponin and obtain echo #. MAGALIS. Continue CPAP at bedtime #. COPD. Not on exacerbation during admission #. Mood disorder. Continue home mood stabilizers #. Sinus tachycardia: On metoprolol #. Essential hypertension. On beta-allyssa as above #. ?History of hypothyroidism. Obtain TSH Med rec pending DVT prophylaxis: Lovenox Full code Cardiac diet Time Spent With Patient Time: Total time managing care of this patient today ____ minutes. Quality Stroke Does the patient have a stroke diagnosis?: No VTE Prior VTE?: No VTE Risk Level:: Medical - moderate - high VTE Device Contraindication: Treatment Not Indicated VTE Drug Contraindication: N/A - Med Ordered
--- NOTE | 2023-01-11 01:57 | PC.NURSE ---
pt demonstrating mild desaturation during sleep with hx COPD and sleep apnea, CPAP at home. Orderd by inpt provider, respiratory called.
--- NOTE | 2023-01-11 02:00 | MHC.EDTECH ---
Labs drawn, Vitals obtained and belongings list completed. Call [facility] within reach
[2023-01-11] MEDS: Enoxaparin Sodium 40 MG/0.4 ML SYRINGE SUBCUT (02:05)
[2023-01-11] MEDS: Nitroglycerin 0.4 MG TAB.SUBL SUBLINGUAL (02:18)
--- NOTE | 2023-01-11 02:21 | PC.NURSE ---
Pt woke complaining off acute CP 11/30. Ordered medications administered, will reassess pain control per protocol.
[2023-01-11 02:28] LABS: Troponin-I High Sensitivity 43.1 ng/L (<3.5-35.0)
[2023-01-11 06:47] LABS: MANUAL DIFF FLAG NO
[2023-01-11 06:51] LABS: Basophils Absolute Auto 0.1 X10*3/uL (0.0-0.2); Basophils Percent Auto 0.4 % (0-2); Eosinophils Absolute Auto 0.2 X10*3/uL (0.0-0.4); Eosinophils Percent Auto 1.7 % (0-4); Hematocrit 49.8 % (42.0-52.0); Hemoglobin 16.4 g/dl (14.0-18.0); Imm Gran Abs Auto 0.13 X10*3/uL (0.00-0.03); Mean Corpuscular HGB Conc 32.9 g/dl (31.0-36.0); Mean Corpuscular Hemoglobin 29.8 pg (27.0-33.0); Mean Corpuscular Volume 90.5 fL (80.0-98.0); Mean Platelet Volume 10.6 fL (9.4-12.4); Monocytes Absolute Auto 0.8 X10*3/uL (0.1-1.2); Monocytes Percent Auto 6.6 % (2-11); Neutrophils Absolute Auto 6.3 x10*3/uL (2.0-8.3); Neutrophils Percent Auto 50.3 % (45-73); Platelet Count 231 X10*3/uL (160-400); Red Cell Distribution Width 13.2 % (11.0-16.0); White Blood Count 12.5 X10*3/uL (4.8-10.8)
--- NOTE | 2023-01-11 07:00 | CA_ITS ---
Transthoracic Echocardiogram Patient (Last, First, Middle): Delta Rooney, Gender: Male Date of : 1965 Age: 57 Procedure Date: 01/11/2023 Procedure Type: Transthoracic Echocardiogram [place] [facility] [place] Height: 182.88 cm Weight: 119.3 kg BSA: 2.39 m2 Heart Rate: 90 bpm BP: 117 / 70 mmHg Advertising Account Manager: SB Referring MD: Lillian Vázquez MD Symptoms: chest pain Study Quality: Fair ECG Rhythm: Sinus Conclusions: - The left ventricular systolic function is hyperdynamic. The visually estimated ejection fraction is >70%. - No obvious valvular pathology seen on this study. Findings Procedure Information Contrast agent, definity, is being given per protocol without apparent complications. The quality of the study was technically difficult. The study quality is limited by patients body habitus. Left Ventricle Normal left ventricular cavity size. There is mildly increased left ventricular wall thickness. The left ventricular systolic function is hyperdynamic. The visually estimated ejection fraction is >70%. There is no evidence of regional wall motion abnormalities. Diastolic function is normal for age. Resting gradient noted in mid ventricle and LVOT, upto 22mmHG; increases with valsalva to 34mmHg. Right Ventricle Normal right ventricular cavity size and systolic function. Atria Both atria are normal in size. Aortic Valve There is mild calcification of the aortic valve. There is no aortic valve stenosis. There is no aortic valve regurgitation. Mitral Valve The mitral valve appears normal. There is no mitral valve regurgitation. There is no mitral valve stenosis. Pulmonic Valve The pulmonic valve is likely normal. Tricuspid Valve Normal tricuspid valve structure. There is trace tricuspid valve regurgitation. There is no evidence of pulmonary hypertension. Great Vessels The asc aorta is normal in size. Venous The inferior vena cava is normal in size and collapses greater than 50% with inspiration. Pericardium/Pleural There is no evidence of pericardial effusion. Prior Study Comparison No prior study available for comparison. Recommendations, Care & Conclusions No obvious valvular pathology seen on this study. Measurements 2D Linear Measurements IVSd: 1.27 0.6-0.9/0.6-1.0 cm LVIDd: 4.50 3.9-5.3/4.2-5.9 cm LVIDd Index: 1.88 2.4-3.2/2.2-3.1 cm/m2 LVIDs: 3.21 2.0-3.6 cm LVPWd: 1.17 0.7-1.1 cm LA Diam: 4.30 2.7-3.8/3.0-4.0 cm LAIDs Index: 1.80 1.5-2.3 cm/m2 LV Mass: 252.86 67-162/88-224 g LV Mass Index: 105.80 43-95/49-115 g/m2 LVOT Diam: 2.10 3.0+(-)1.3 cm 2D Systolic Function EF 4C: 70.30 >55% EF 2C: 84.40 >55% EF BiP: 79.10 >55% Mitral Valve MV Pk E: 0.72 MV PK A: 0.86 MV Decel Time: 200.00 E/A: 0.80 E'Lateral: 6.64 E'Medial: 5.00 E/E' Med: 14.40 E/E' Lat: 10.80 PHT: 58.00 MVA PHT: 3.79 Decel [place]: 3.61 Aortic Valve AoV Pk Lonnie: 2.30 AoV Mn Lonnie: 1.56 AoV VTI: 0.41 AoV Pk Grad: 21.00 Aov Mn Grad: 12.00 DEMETRIUS Cont.VTI: 3.02 LVOT LVOT Pk Lonnie: 2.12 LVOT Mn Lonnie: 1.56 LVOT VTI: 0.35 LVOT Pk Grad: 18.00 LVOT Mn Grad: 11.00 LVOT Diam: 2.10 LVOT Area: 3.46 Diastolic Function MV Pk E: 0.72 MV Pk A: 0.86 E/A: 0.80 E'Medial: 5.00 E/E' Med: 14.40 E' Laterial: 6.64 E/E' Lat: 10.80 Right Ventricle TAPSE (mm): 24.20 TVS' Lonnie: 15.90 Tricuspid Valve RA Press: 3.00 Great Vessels Aorta Sinus of Valsalva: 3.50 2.0-3.5 cm Ao Asc: 3.30 2.1-3.4 cm Updated in Other Vendor System with Status of Final Andrea Hernandez MD electronically signed on 01/11/2023 11:08:37 AM with status of Final
[2023-01-11 07:07] LABS: Anion Gap 13 (12-20); Blood Urea Nitrogen 15 mg/dL (9-16); Calcium 8.7 mg/dL (8.4-10.2); Carbon Dioxide 27 mmol/L (22-29); Chloride 106 mmol/L (96-108); Creatinine Clr Calc Pharmacy 127.9; Estimated Glomerular Filt Rate > 60; Glucose Random 117 mg/dL (60-115); Potassium 3.5 mmol/L (3.3-5.1); Sodium 142 mmol/L (135-145)
[2023-01-11 07:15] LABS: Troponin-I High Sensitivity 45.2 ng/L (<3.5-35.0)
[2023-01-11 07:29] LABS: Thyroid Stimulating Hormone 0.79 uIU/mL (0.32-4.0)
--- NOTE | 2023-01-11 08:54 | P.DS_ITS ---
DS: Providers Provider Date of Service: 01/11/23 Date of admission: 01/11/23 01:02 Primary care physician: Unknown Physician Consults: 01/11/23 01:55 Consult to Cardiology Routine Consulting Provider: [facility] Cardiovascular Services Reason for consultation: Chest pain Has provider been notified: Yes DS: Diagnosis Discharge Diagnosis (1) Chest pain: Status: Acute DS: Summary Hospital Course Hospital Course: Chief Complaint: Chest pain This is a 57-year-old male with pertinent history of mood disorder, essential hypertension, MAGALIS on CPAP, COPD not on home oxygen who presents to the emergency department for evaluation of chest discomfort.? Patient states he had midsternal chest discomfort at 22:00 when he was laying down.? It radiated to the jaw and left arm.? Patient's gave him aspirin and nitroglycerin which helped with the pain.? Patient states he had similar pain 1 night prior to presentation.? It increased with exertion and subsided with rest.? No history of CAD/ACS in the past.? Patient states he underwent a cardiac workup 5 years ago which was apparently normal.? His father from [place] at the age of 52.? Patient denies diabetes or hyperlipidemia.? No fever, chills, palpitations, shortness of breath, history of AFib, abdominal pain, changes in urinary or bowel habits.? He recently saw his PCP about a week ago and his metoprolol was held as it was thought that the beta-allyssa was worsening his COPD. Hospital course: This patient with multiple cardiac risk factors presented, and recently taken of metoprolol which he has been taking for nearly 10 years presented with chest pain and noted to have troponin I ranging rom 43 to 45, ECG shows inferiour ischemic change (no old for comparaison), he has persistent intermittent pain and will thus go to [facility] for cardiac cath Time Spent with Patient Time attestation: Total time managing care of this patient today ____ minutes. Discharge coordination time: Greater than 30 minutes Quality: Safe Use of Opioids Does Pt have an Active Cancer Diagnosis on the Problem List?: No Quality: Stroke Does the patient have a stroke diagnosis?: No Physical Exam Vital Signs: Vital Signs: Last Vital Signs Temp 98.1 F 01/11/23 07:30 Pulse 82 01/11/23 07:30 Resp 20 01/11/23 07:30 BP 114/70 01/11/23 07:30 Pulse Ox 95 01/11/23 07:30 O2 Del Method Room Air 01/11/23 07:30 BMI result Body Mass Index 35.7 DS: Data Data Completed and Pending Labs on day of discharge: Laboratory Results - last 24 hr 01/10/23 01/10/23 01/10/23 23:04 23:04 23:05 WBC 14.6 H RBC 5.80 Hgb 17.4 Hct 52.0 MCV 89.7 MCH 30.0 MCHC 33.5 RDW 13.1 Plt Count 267 MPV 10.3 Immature Gran % (Auto) 0.6 H Neut % (Auto) 66.5 Lymph % (Auto) 25.7 [place] % (Auto) 6.2 Eos % (Auto) 0.7 Baso % (Auto) 0.3 Lymph # (Auto) 3.8 [place] # (Auto) 0.9 Eos # (Auto) 0.1 Baso # (Auto) 0.1 Abs Immat Gran (auto) 0.09 H Absolute Neuts (auto) 9.7 H Absolute Nucleated RBC 0.000 Nucleated RBC % (auto) 0.0 Sodium 140 Potassium 3.9 Chloride 104 Carbon Dioxide 24 Anion Gap 16 BUN 16 Creatinine 0.85 Estim Creat Clear Calc 125.5 Estimated GFR > 60 Random Glucose 193 H Calcium 9.3 Troponin I High Sens 36.4 H TSH 01/11/23 01/11/23 01/11/23 01:59 06:21 06:21 WBC 12.5 H RBC 5.50 Hgb 16.4 Hct 49.8 MCV 90.5 MCH 29.8 MCHC 32.9 RDW 13.2 Plt Count 231 MPV 10.6 Immature Gran % (Auto) 1.0 H Neut % (Auto) 50.3 Lymph % (Auto) 40.0 [place] % (Auto) 6.6 Eos % (Auto) 1.7 Baso % (Auto) 0.4 Lymph # (Auto) 5.0 H [place] # (Auto) 0.8 Eos # (Auto) 0.2 Baso # (Auto) 0.1 Abs Immat Gran (auto) 0.13 H Absolute Neuts (auto) 6.3 Absolute Nucleated RBC 0.000 Nucleated RBC % (auto) 0.0 Sodium 142 Potassium 3.5 Chloride 106 Carbon Dioxide 27 Anion Gap 13 BUN 15 Creatinine 0.84 Estim Creat Clear Calc 127.9 Estimated GFR > 60 Random Glucose 117 H Calcium 8.7 D Troponin I High Sens 43.1 H TSH 01/11/23 01/11/23 06:21 06:21 WBC RBC Hgb Hct MCV MCH MCHC RDW Plt Count MPV Immature Gran % (Auto) Neut % (Auto) Lymph % (Auto) [place] % (Auto) Eos % (Auto) Baso % (Auto) Lymph # (Auto) [place] # (Auto) Eos # (Auto) Baso # (Auto) Abs Immat Gran (auto) Absolute Neuts (auto) Absolute Nucleated RBC Nucleated RBC % (auto) Sodium Potassium Chloride Carbon Dioxide Anion Gap BUN Creatinine Estim Creat Clear Calc Estimated GFR Random Glucose Calcium Troponin I High Sens 45.2 H TSH 0.79 Discharge Plan Discharge Anticipated Discharge Date/Time: 01/11/23 08:54 Patient Disposition: Xfer Acute Care Hospital Discharge Diagnosis: NSTEMI, chest pain Referrals: Physician,Unknown J [Primary Care Provider] - 1 Week Discharge Medications: New enoxaparin 120 mg/0.8 mL Syringe 120 mg subcut BID Qty: 5 0RF Continued ipratropium-albuterol 0.5 mg-3 mg(2.5 mg base)/3 mL solution for nebulization 3 ml inhalation Q6H PRN (Reason: wheezing) alprazolam 1 mg tablet 1 mg PO BID PRN (Reason: Sleep) aspirin 81 mg tablet,chewable 1 tab PO DAILY paroxetine HCl 25 mg tablet extended release 24 hr 25 mg PO DAILY levothyroxine [Synthroid] 75 mcg tablet 75 mcg PO DAILY atorvastatin 20 mg tablet 20 mg PO DAILY cholecalciferol (vitamin D3) 125 mcg (5,000 unit) capsule 5,000 unit PO DAILY Discontinued prednisone 20 mg tablet 20 mg PO DAILY Rx Instructions: X 5 DAYS Discharge Orders: Discharge Order (Routine); Ordered 01/11/23 Ordered By: Rohith Wilburn Diet: Diabetic diet Activity on Discharge: As tolerated Stand Alone Forms: Patient Portal Discharge page Care Plan Goals: Further cardiac workup at [facility], probable cath Health Concerns: chest pain and STEMI Plan of Treatment: To [facility] for cardiac catherization Assessment: as above Discharge Date/Time: 01/11/23 13:45
[2023-01-11] MEDS: Acetaminophen 325 MG TABLET 650 MG PO (08:56)
[2023-01-11] MEDS: Levothyroxine Sodium 75 MCG TABLET PO (09:37)
[2023-01-11] MEDS: 0.9 % Sodium Chloride Flush 3 ML SYRINGE IVFLUSH (09:37)
[2023-01-11] MEDS: predniSONE 20 MG TABLET PO (09:37)
[2023-01-11] MEDS: Aspirin 81 MG TAB.CHEW PO (09:37)
[2023-01-11] MEDS: PARoxetine HCL 10 MG TABLET 25 MG PO (09:37)
[2023-01-11] MEDS: Atorvastatin Calcium 20 MG TABLET PO (09:37)
--- NOTE | 2023-01-11 09:52 | PM.CNCAR ---
History of Present Illness History of Present Illness Date of Service: 01/11/23 Chief complaint: Chest Pain Narrative: This is a cardiology consultation regarding chest pain. Patient does not have any known history of coronary artery disease myocardial infarction or cardiomyopathy. He apparently carries a diagnosis of COPD. Recent admitted to [facility] for respiratory issues and then discharged. Also, it seems that he was on metoprolol but that was apparently stopped few days back as it was felt that it is contributing to his COPD. Yesterday, he developed a discomfort in the substernal area and that went to his left arm and jaw. Then he got some aspirin, old nitroglycerin. Then felt better. Currently, he is pain free. We were then asked to see him for further care. There is a family history of myocardial infarction father in his early 50s. Review of Systems Review of Systems: Yes all other systems are reviewed and are negative Constitutional: Constitutional: Reports as per HPI and Reports no additional constitutional complaints Eyes: Eyes: Reports as per HPI and Denies no additional eye complaints ENT: Denies system reviewed and no additional complaints, except as documented and Reports as per HPI Cardiovascular: Cardiovascular: Reports as per HPI, Reports no additional cardiovascular complaints, Denies acrocyanosis, Denies cool extremities, Reports chest pain, Denies leg edema, Denies lightheadedness, Denies palpitations and Reports dyspnea Respiratory: Respiratory: Reports as per HPI, Denies no additional respiratory complaints and Reports dyspnea Gastrointestinal: Gastrointestinal: Reports as per HPI and Denies no additional gastrointestinal complaints Genitourinary: Genitourinary: Reports no additional male genitourinary complaints and Reports as per HPI Musculoskeletal: Musculoskeletal: Reports no additional musculoskeletal complaints and Reports as per HPI Integumentary/Breasts: Skin/Breast: Reports system reviewed and no additional complaints, except as docu Neurologic: Reports system reviewed and no additional complaints, except as documented and Reports as per HPI Psychiatric: Psychiatric: Reports no additional psychiatric complaints and Reports as per HPI Endocrine: Endocrine: Reports no additional endocrine complaints, Reports as per HPI and Denies palpitations Hematologic/Lymphatic: Hematologic/Lymphatic: Reports no additional hematologic/lymphatic complaints and Reports as per HPI Allergic/Immunologic: Allergic/Immunologic: Reports no additional allergic/immunologic complaints and Reports as per HPI [facility] Past Medical History Medical History Depression GERD (gastroesophageal reflux disease) Hypothyroidism Family History Family History (Updated 01/11/23 @ 09:54 by Andrea Hernandez MD) Father Myocardial infarction Social History Social History Household Members: Significant Other and Family Housing: House Do you presently have visiting nurse or other home services: No Alcohol intake: never Patient Tobacco Use Status: Current everyday Tobacco user Tobacco use type: Cigarette Cigarette Packs Per Day: 1 Cigarettes Per Day: 20.0 Meds Allergies Allergy/AdvReac Type Severity Reaction Status Date / Time codeine Allergy Unknown unknown Verified 01/10/23 23:52 mint Allergy Unknown unknown Verified 01/10/23 23:52 amoxicillin [From Augmentin] Allergy Unknown Verified 01/10/23 23:52 clavulanic acid Allergy Unknown Verified 01/10/23 23:52 [From Augmentin] Active Medications: Current Medications Acetaminophen (Acetaminophen 325 Mg Tablet) 650 mg PO Q6H PRN PRN Reason: Pain, Mild (Pain Scale 1-3) Last Admin: 01/11/23 08:56 Dose: 650 mg Acetaminophen (Acetaminophen Supp 650 Mg Supp.Rect) 650 mg NM Q6H PRN PRN Reason: Pain, Mild (Pain Scale 1-3) Albuterol/Ipratropium (Albuterol/Iprat 2.5/0.5mg 3 Ml Ampul.Neb) 3 ml INHALE Q6H PRN PRN Reason: wheezing Alprazolam (Alprazolam 0.5 Mg Tablet) 1 mg PO BID PRN PRN Reason: Sleep Aspirin (Aspirin 81 Mg Tab.Chew) 81 mg PO DAILY TYREE Last Admin: 01/11/23 09:37 Dose: 81 mg Atorvastatin Calcium (Atorvastatin Calcium 20 Mg Tablet) 20 mg PO DAILY TYREE Last Admin: 01/11/23 09:37 Dose: 20 mg Enoxaparin Sodium (Enoxaparin Sodium 40 Mg/0.4 Ml Syringe) 40 mg SUBCUT Q24H [facility] Last Admin: 01/11/23 02:05 Dose: 40 mg Enoxaparin Sodium (Enoxaparin Sodium 80 Mg/0.8 Ml Syringe) 80 mg SUBCUT ONCE ONE Stop: 01/11/23 09:45 Levothyroxine Sodium (Levothyroxine Sodium 75 Mcg Tablet) 75 mcg PO DAILY@0600 [facility] Last Admin: 01/11/23 09:37 Dose: 75 mcg Melatonin (Melatonin 3 Mg Tablet) 6 mg PO BEDTIME PRN PRN Reason: Insomnia Morphine Sulfate (Morphine Sulfate 4 Mg/Ml Cartridge) 3 mg IVPUSH ONCE ONE; Protocol Stop: 01/11/23 09:49 Nitroglycerin (Nitroglycerin 0.4 Mg Tab.Subl) 0.4 mg SUBLINGUAL Q5MX3 PRN PRN Reason: Chest Pain Last Admin: 01/11/23 02:18 Dose: 0.4 mg Ondansetron HCl (Ondansetron Hcl 4 Mg/2 Ml Vial) 4 mg IVPUSH Q8H PRN PRN Reason: Nausea and Vomiting Paroxetine HCl (Paroxetine Hcl 10 Mg Tablet) 25 mg PO DAILY [facility] Last Admin: 01/11/23 09:37 Dose: 25 mg Pharmacy Consult (Consult Rx Perform Med Rec) 1 each MISCELLANE ONCE PRN PRN Reason: Consult order Prednisone (Prednisone 20 Mg Tablet) 20 mg PO DAILY [facility] Stop: 01/15/23 09:01 Last Admin: 01/11/23 09:37 Dose: 20 mg Sodium Chloride (0.9 % Sodium Chloride Flush 3 Ml Syringe) [facility] Last Admin: 01/11/23 09:37 Dose: 3 ml Home Medications Medication Instructions Recorded Confirmed Last Taken Type alprazolam 1 mg tablet 1 mg PO BID PRN Sleep 01/10/23 01/10/23 Unknown History aspirin 81 mg chewable tablet 1 tab PO DAILY 01/10/23 01/10/23 Unknown History ipratropium 0.5 mg-albuterol 3 mg 3 ml inhalation Q6H PRN wheezing 01/10/23 01/10/23 Unknown History (2.5 mg base)/3 mL nebulization soln paroxetine HCl 25 mg 25 mg PO DAILY 01/10/23 01/10/23 Unknown History tablet,extended release 24 hr prednisone 20 mg tablet 20 mg PO DAILY 01/10/23 01/11/23 Unknown History atorvastatin 20 mg tablet 20 mg PO DAILY 01/11/23 01/11/23 Unknown History cholecalciferol (vitamin D3) 125 5,000 unit PO DAILY 01/11/23 01/11/23 Unknown History mcg (5,000 unit) capsule levothyroxine 75 mcg tablet 75 mcg PO DAILY 01/11/23 01/11/23 Unknown History (Synthroid) Physical Exam Vital Signs: Vital Signs: Last Vital Signs Temp 98.1 F 01/11/23 07:30 Pulse 82 01/11/23 07:30 Resp 20 01/11/23 07:30 BP 114/70 01/11/23 07:30 Pulse Ox 95 01/11/23 07:30 O2 Del Method Room Air 01/11/23 07:30 BMI result Body Mass Index 35.7 Const: General: comfortable and no acute distress Orientation/consciousness: patient oriented x3 HEENT: Other: Unremarkable Head: Yes normal to inspection Neck: Neck: Yes normal visual inspection Chest: Chest palpation & inspection: normal inspection of the chest Resp: Auscultation: wheezes and diminished lung sounds Cardio: Palpation: normal PMI Heart sounds: S1 normal heart sound present, S2 normal heart sound present, no gallops, no murmurs and no rubs GI: Palpation (GI): Soft to palpation Back/Spine/Pelvis: Other: unremarkable Skin: General skin exam: no rashes or lesions noted Neuro: General: patient oriented x3 Extrem: General: Yes normal to inspection Psych: Mental Status: mental status grossly normal Objective Labs and Meds 01/11/23 06:21 01/11/23 06:21 Lab results: Laboratory Results - last 24 hr 01/10/23 01/10/23 01/10/23 23:04 23:04 23:05 WBC 14.6 H RBC 5.80 Hgb 17.4 Hct 52.0 MCV 89.7 MCH 30.0 MCHC 33.5 RDW 13.1 Plt Count 267 MPV 10.3 Immature Gran % (Auto) 0.6 H Neut % (Auto) 66.5 Lymph % (Auto) 25.7 [place] % (Auto) 6.2 Eos % (Auto) 0.7 Baso % (Auto) 0.3 Lymph # (Auto) 3.8 [place] # (Auto) 0.9 Eos # (Auto) 0.1 Baso # (Auto) 0.1 Abs Immat Gran (auto) 0.09 H Absolute Neuts (auto) 9.7 H Absolute Nucleated RBC 0.000 Nucleated RBC % (auto) 0.0 Sodium 140 Potassium 3.9 Chloride 104 Carbon Dioxide 24 Anion Gap 16 BUN 16 Creatinine 0.85 Estim Creat Clear Calc 125.5 Estimated GFR > 60 Random Glucose 193 H Calcium 9.3 Troponin I High Sens 36.4 H TSH 01/11/23 01/11/23 01/11/23 01:59 06:21 06:21 WBC 12.5 H RBC 5.50 Hgb 16.4 Hct 49.8 MCV 90.5 MCH 29.8 MCHC 32.9 RDW 13.2 Plt Count 231 MPV 10.6 Immature Gran % (Auto) 1.0 H Neut % (Auto) 50.3 Lymph % (Auto) 40.0 [place] % (Auto) 6.6 Eos % (Auto) 1.7 Baso % (Auto) 0.4 Lymph # (Auto) 5.0 H [place] # (Auto) 0.8 Eos # (Auto) 0.2 Baso # (Auto) 0.1 Abs Immat Gran (auto) 0.13 H Absolute Neuts (auto) 6.3 Absolute Nucleated RBC 0.000 Nucleated RBC % (auto) 0.0 Sodium 142 Potassium 3.5 Chloride 106 Carbon Dioxide 27 Anion Gap 13 BUN 15 Creatinine 0.84 Estim Creat Clear Calc 127.9 Estimated GFR > 60 Random Glucose 117 H Calcium 8.7 D Troponin I High Sens 43.1 H TSH 01/11/23 01/11/23 06:21 06:21 WBC RBC Hgb Hct MCV MCH MCHC RDW Plt Count MPV Immature Gran % (Auto) Neut % (Auto) Lymph % (Auto) [place] % (Auto) Eos % (Auto) Baso % (Auto) Lymph # (Auto) [place] # (Auto) Eos # (Auto) Baso # (Auto) Abs Immat Gran (auto) Absolute Neuts (auto) Absolute Nucleated RBC Nucleated RBC % (auto) Sodium Potassium Chloride Carbon Dioxide Anion Gap BUN Creatinine Estim Creat Clear Calc Estimated GFR Random Glucose Calcium Troponin I High Sens 45.2 H TSH 0.79 ECG Interpretation: EKG with right bundle-branch block pattern. Cannot exclude old inferior infarct. Imaging Radiologist's impression: Impressions Chest X-Ray 01/11/23 00:10 IMPRESSION: Unremarkable chest examination. Assessment and Plan (1) Acute non-ST elevation myocardial infarction (NSTEMI): Status: Acute (2) Chest pain: Status: Acute Plan Smoker, COPD, substernal chest pain radiating to left arm and jaw. EKG without any acute ischemic changes. High sensitivity troponins are 36.4, 43.1 and 45.2. Currently pain free. We will treat him as NSTEMI with IV heparin drip or therapeutic dose Lovenox; aspirin, high dose statins. He is quite wheezy and hence likely not going to be tolerate beta-blockers. Discussed about diagnostic cardiac catheterization and he is agreeable. Will transfer to [facility] for the same. Echocardiogram pending. Discussed with Dr. Wilburn. Discussed with [facility] for transfer/arranged cardiac catheterization. Time Spent With Patient Time: Total time managing care of this patient today ____ minutes. Procedures Date of Service Date of Service: 01/11/23
[2023-01-11] MEDS: Enoxaparin Sodium 80 MG/0.8 ML SYRINGE SUBCUT (10:37)
[2023-01-11] MEDS: Morphine Sulfate 4 MG/ML CARTRIDGE 3 MG IVPUSH (10:38)
--- NOTE | 2023-01-11 14:32 | MHC.CM.PN ---
ISABELLE 01/11/23, EMR REVIEWED, PT W/CHEST PAIN TRANSFERRED TO [facility] PRIOR TO TIME OF THIS NOTE, CM MET W/PT AND WHO WAS AT BEDSIDE, PT REPORTS HE LIVES W/, IS INDEP AND USES A CPAP AND HOME O2 PRN W/[place], PT REPORTS HIS HOME O2 IS NEW HE HAS BEEN SICK. PT [facility] IS UNSURE OF NAME, PFIZER X3 AND PT HAS BEEN EDUCATED ON AND DECLINES TO COMPLETE A HCP AT THIS TIME. PT TRNASFERRED TO [facility] FOR CARDIAC CATH
== END 2023-01-11 13:45 | disposition short-term general hospital (02) ==
LOC: HO.ED 01-11 01:04 → HO.EDOVER 01-11 01:16 → HO.IMC 01-11 02:32
PROVIDERS: Nurse Practitioner Family; Admitting Provider Student in an Organized Health Care Education/Training Program; Emergency Provider Emergency Medicine; Visit Provider Internal Medicine
DX: I21.4 Non-ST elevation (NSTEMI) myocardial infarction (principal); R07.9 Chest pain, unspecified; I10 Essential (primary) hypertension; F17.200 Nicotine dependence, unspecified, uncomplicated; Z79.82 Long term (current) use of aspirin; Z79.899 Other long term (current) drug therapy
CPT/HCPCS: 36415; 71046; 80048; 84443; 84484; 85025; 93005; 93306; 94660; 96372; 96374; 99222; 99285; J1650; J2270; Q9957

== ENCOUNTER 2023-01-31 12:30 | Outpatient (AMB) | payer BC, SELFPAY ==
--- NOTE | 2023-01-31 12:36 | MHC.OFFVIS ---
Intake Vital Signs 01/31/23 12:38 Height 6 ft Weight 257 lb 15.053 oz BMI 35.0 BP 128/74 Blood Pressure Location Lt brachial Position Sitting Pulse 80 Intake Visit Reasons: [facility] [place] [facility] follow up Intake Note: follow up Data Warehouse Specialist Required: No Accompanied by: Self / Same As Patient Allergies codeine Allergy (Unknown, Verified 01/31/23 12:37) unknown mint Allergy (Unknown, Verified 01/31/23 12:37) unknown amoxicillin [From Augmentin] Allergy (Verified 01/31/23 12:37) Unknown clavulanic acid [From Augmentin] Allergy (Verified 01/31/23 12:37) Unknown Medication List - Last Reconciled 01/31/23 by Andrea Hernandez MD alprazolam 1 mg PO BID PRN aspirin 81 mg PO DAILY atorvastatin 80 mg PO BEDTIME furosemide 20 mg PO DAILY ipratropium-albuterol 0.5 mg-3 mg(2.5 mg base)/3 mL 3 mL inhalation Q6H PRN levothyroxine (Synthroid) 75 mcg PO DAILY metoprolol succinate ER 50 mg PO paroxetine HCl ER 25 mg PO DAILY ticagrelor (Brilinta) 90 mg PO BID HPI HPI Comments History of Present Illness Details Delta returns for follow-up regarding coronary disease. He was recently seen in the hospital in consultation. He has a diagnosis of underlying COPD. He was admitted for complaints of chest pain. Low-grade troponin leak. Subsequently, sent to [facility] as NSTEMI and underwent cardiac catheterization as well as LAD stenting. He states chest pain is completely gone. Otherwise generally feels okay. Shortness of breath from COPD. PFSH Medical History Depression GERD (gastroesophageal reflux disease) Hypothyroidism Smoking Family History Father Myocardial infarction Social History (Updated 01/31/23 @ 12:43 by Kirsten Banegas) Household Members: Significant Other and Family Housing: House Do you presently have visiting nurse or other home services: No Alcohol intake: never Patient Tobacco Use Status: Current everyday Tobacco user Tobacco use type: Cigarette Cigarettes Per Day: 3 service: No Review of Systems Const Denies weakness ENT Denies dizziness Card Denies chest pain, Denies chest pain with activity, Denies syncope, Denies rapid heart rate, Denies pedal edema, Denies edema, Denies leg edema, Denies lightheadedness, Denies palpitations, Denies dyspnea, Denies dyspnea on exertion and Denies orthopnea Resp Denies cough, Denies dyspnea and Denies dyspnea on exertion GI Denies hematochezia and Denies change in stool character Musc Denies abnormal gait, Denies muscle cramps, Denies muscle weakness, Denies numbness, Denies radiating pain into limb and Denies tingling Neuro Denies abnormal gait, Denies dizziness, Denies syncope, Denies numbness, Denies tingling and Denies weakness Endo Denies palpitations Physical Exam Vital Signs: Last Vital Signs Pulse 80 01/31/23 12:38 BP 128/74 01/31/23 12:38 BMI result Body Mass Index 35.0 Const General: comfortable and no acute distress Orientation/consciousness: patient oriented x3 HEENT Other: Unremarkable Head: Yes normal to inspection Neck Neck: Yes normal visual inspection Chest Chest palpation & inspection: normal inspection of the chest Resp Auscultation: clear to auscultation bilaterally Cardio Palpation: normal PMI Heart sounds: S1 normal heart sound present, S2 normal heart sound present, no gallops, no murmurs and no rubs GI Palpation (GI): Soft to palpation Back/Spine/Pelvis Other: unremarkable Skin General skin exam: no rashes or lesions noted Neuro General: patient oriented x3 Extrem General: Yes normal to inspection Psych Mental Status: mental status grossly normal Assessment & Plan Assessment & Plan (1) Atherosclerotic cardiovascular disease: Code(s): I25.10 - Atherosclerotic heart disease of [place] coronary artery without angina pectoris (2) Smoking: Code(s): F17.200 - Nicotine dependence, unspecified, uncomplicated Plan Cardiac catheterization data reviewed. Status post PCI to proximal LAD.\ Much improved from symptoms standpoint. Continue aspirin indefinitely. Brilinta for 1 year total. Continue beta-blockers. Continue high-dose statins. We will check lipids and LFTs in due course. Request given. Otherwise, cardiac rehabilitation recommended. Needs to stop smoking. Follow-up in a few months time. In the interim, to call with concerns. Total time spent including review of [facility] data, counseling, documentation, coordination of care-34 minutes. Orders: Orders Cardiac Rehab Today Z95.5 - Presence of coronary angioplasty implant and graft Lipid Panel 3 Months E78.5 - Hyperlipidemia, unspecified, I25.10 - Atherosclerotic heart disease of [place] coronary artery without angina pectoris Liver Panel 3 Months I25.10 - Atherosclerotic heart disease of [place] coronary artery without angina pectoris Coding Level of Care Code Est Pt Level 4 (47644) Diagnoses Atherosclerotic cardiovascular disease I25.10 Smoking F17.200
[2023-01-31 12:38] VITALS: BP 128/74; PULSE 80; BMI 35.0
== END 2023-01-31 12:57 | disposition home or self-care (01) ==
PROVIDERS: Visit Provider Internal Medicine
DX: I25.10 Atherosclerotic heart disease of native coronary artery without angina pectoris (principal); F17.200 Nicotine dependence, unspecified, uncomplicated
CPT/HCPCS: 99214

== ENCOUNTER → 2023-01-31 12:30 | Outpatient (BNVA) | payer BC, SELFPAY | PROVIDERS: Visit Provider Internal Medicine ==

== ENCOUNTER 2023-08-03 13:37 | Outpatient (AMB) | payer BC, SELFPAY ==
[2023-07-06 13:38] VITALS: BP 124/54; BP 124/68; BP 130/64; BMI 36.3
--- NOTE | 2023-08-03 13:38 | MHC.OFFVIS ---
Intake Vital Signs 08/03/23 13:39 Height 6 ft Weight 268 lb 15.423 oz BMI 36.5 BP 120/70 Blood Pressure Location Lt brachial Position Sitting Pulse 67 Intake Visit Reasons: 6 mth f/up Intake Note: 6 month follow up Mental Health Social Worker Required: No Accompanied by: Self / Same As Patient Allergies codeine Allergy (Unknown, Verified 08/03/23 13:41) unknown mint Allergy (Unknown, Verified 08/03/23 13:41) unknown amoxicillin [From Augmentin] Allergy (Verified 08/03/23 13:41) Unknown clavulanic acid [From Augmentin] Allergy (Verified 08/03/23 13:41) Unknown Medication List - Last Reconciled 08/03/23 by Andrea Hernandez MD alprazolam 1 mg PO BID PRN aspirin 81 mg PO DAILY atorvastatin 80 mg PO BEDTIME ipratropium-albuterol 0.5 mg-3 mg(2.5 mg base)/3 mL 3 mL inhalation Q6H PRN levothyroxine (Synthroid) 75 mcg PO DAILY metoprolol succinate ER 50 mg PO paroxetine HCl ER 25 mg PO DAILY ticagrelor (Brilinta) 90 mg PO BID HPI HPI Comments History of Present Illness Details Delta returns for follow-up regarding coronary disease. In 2022, he was seen in the hospital in consultation. He has a diagnosis of underlying COPD. He was admitted for complaints of chest pain. Low-grade troponin leak. Subsequently, sent to [facility] as NSTEMI and underwent cardiac catheterization as well as LAD stenting. Since last seen, he is generally doing good. No complaints like angina or shortness of breath or in fact anything cardiac sounding. He seems to be getting along fine. [facility] Medical History (Updated 01/31/23 @ 16:15 by Andrea Hernandez MD) Smoking Hypothyroidism Depression GERD (gastroesophageal reflux disease) Family History Father Myocardial infarction Social History Household Members: Significant Other and Family Housing: House Do you presently have visiting nurse or other home services: No Alcohol intake: never Patient Tobacco Use Status: Current everyday Tobacco user Tobacco use type: Cigarette Cigarette Packs Per Day: 0 Cigarettes Per Day: 3 Years Smoked: 10 service: No Review of Systems Const All systems reviewed & are unremarkable except as noted in HPI and below Reports as per HPI, Reports no additional complaints and Denies weakness Eyes Reports as per HPI and Denies no additional complaints ENT Denies no additional complaints, Reports as per HPI and Denies dizziness Card Reports as per HPI, Reports no additional complaints, Denies acrocyanosis, Denies chest pain, Denies chest pain with activity, Denies syncope, Denies rapid heart rate, Denies pedal edema, Denies edema, Denies leg edema, Denies lightheadedness, Denies palpitations, Denies dyspnea and Denies orthopnea Resp Reports as per HPI, Denies no additional complaints, Denies cough and Denies dyspnea GI Reports as per HPI, Denies no additional complaints, Denies hematochezia and Denies change in stool character Reports no additional complaints and Reports as per HPI Musc Reports no additional complaints, Reports as per HPI, Denies abnormal gait, Denies muscle cramps, Denies muscle weakness, Denies numbness, Denies radiating pain into limb and Denies tingling Skin/Breast Reports system reviewed and no additional complaints, except as documented Neuro Reports no additional complaints, Reports as per HPI, Denies abnormal gait, Denies dizziness, Denies syncope, Denies numbness, Denies tingling and Denies weakness Psych Reports no additional complaints and Reports as per HPI Endo Reports no additional complaints, Reports as per HPI and Denies palpitations Rolando/Lymph Reports no additional complaints and Reports as per HPI Aller/Immun Reports no additional complaints and Reports as per HPI Physical Exam Vital Signs: Last Vital Signs Pulse 67 08/03/23 13:39 BP 120/70 08/03/23 13:39 BMI result Body Mass Index 36.5 Const General: comfortable and no acute distress Orientation/consciousness: patient oriented x3 HEENT Other: Unremarkable Head: Yes normal to inspection Neck Neck: Yes normal visual inspection Chest Chest palpation & inspection: normal inspection of the chest Resp Auscultation: clear to auscultation bilaterally Cardio Palpation: normal PMI Heart sounds: S1 normal heart sound present, S2 normal heart sound present, no gallops, no murmurs and no rubs GI Palpation (GI): Soft to palpation Back/Spine/Pelvis Other: unremarkable Skin General skin exam: no rashes or lesions noted Neuro General: patient oriented x3 Extrem General: Yes normal to inspection Psych Mental Status: mental status grossly normal Assessment & Plan Assessment & Plan (1) Atherosclerotic cardiovascular disease: Code(s): I25.10 - Atherosclerotic heart disease of [place] coronary artery without angina pectoris Plan Cardiac catheterization data reviewed. Status post PCI to proximal LAD. Continue aspirin indefinitely. He can stop Brilinta about 1 year from time of stenting. We discussed about this today. Continue beta-blockers. Continue high-dose statins. Most recent LDL cholesterol 71 mg/dL. Triglycerides 74 mg/dL. With regard to smoking, it says he is no longer doing that. Otherwise, seems stable. Follow-up in 1 year. In the interim, he will call with concerns. Coding Level of Care Code Est Pt Level 3 (57986) Diagnoses Atherosclerotic cardiovascular disease I25.10
[2023-08-03 13:39] VITALS: BP 120/70; PULSE 67; BMI 36.5
== END 2023-08-03 13:54 | disposition home or self-care (01) ==
PROVIDERS: Visit Provider Internal Medicine
DX: I25.10 Atherosclerotic heart disease of native coronary artery without angina pectoris (principal)
CPT/HCPCS: 99213

== ENCOUNTER → 2023-08-03 13:37 | Outpatient (BNVA) | payer BC, SELFPAY ==
[2023-07-06 13:38] VITALS: BP 124/54; BP 124/68; BP 130/64; BMI 36.3
== END ==
PROVIDERS: Visit Provider Internal Medicine

== ENCOUNTER 2024-08-06 12:16 | Outpatient (AMB) | payer BC, SELFPAY ==
[2023-07-06 13:38] VITALS: BP 124/54; BP 124/68; BP 130/64; BMI 36.3
[2024-08-06 12:32] VITALS: BP 120/70; PULSE 59; BMI 32.3
--- NOTE | 2024-08-06 12:32 | A.OFFVIS_ITS ---
Vital Signs 08/06/24 12:32 Height 6 ft Weight 238 lb 1.588 oz BMI 32.3 BP 120/70 Blood Pressure Location Lt brachial Position Sitting Pulse 59 Pulse Source Monitor Intake Visit Reasons: 1 year fu Allergies codeine Allergy (Unknown, Verified 08/03/23 13:41) unknown mint Allergy (Unknown, Verified 08/03/23 13:41) unknown amoxicillin [From Augmentin] Allergy (Verified 08/03/23 13:41) Unknown clavulanic acid [From Augmentin] Allergy (Verified 08/03/23 13:41) Unknown Medication List - Last Reconciled 08/06/24 by Andrea Hernandez MD alprazolam 1 mg PO BID PRN aspirin 81 mg PO DAILY atorvastatin 40 mg PO BEDTIME ipratropium-albuterol 0.5 mg-3 mg(2.5 mg base)/3 mL 3 mL inhalation Q6H PRN levothyroxine (Synthroid) 75 mcg PO DAILY metoprolol succinate ER 25 mg PO paroxetine HCl ER 25 mg PO DAILY HPI Comments Details: Delta returns for follow-up regarding coronary disease. In 2022, he was seen in the hospital in consultation. He has a diagnosis of underlying COPD. He was admitted for complaints of chest pain. Low-grade troponin leak. Subsequently, sent to [facility] as NSTEMI and underwent cardiac catheterization as well as LAD stenting. Overall, he states he is feeling good. No specific cardiac complaints. With regard to statins, apparently having lot of aches and pains. He states that his primary care physician in [place] has cut back on the statin dose. However, he still has the same symptoms and hence asking about injectables. [facility] Medical History (Updated 08/06/24 @ 12:57 by Andrea Hernandez MD) MAGALIS on CPAP Smoking Hypothyroidism Depression GERD (gastroesophageal reflux disease) Family History Father Myocardial infarction Social History (Updated 08/06/24 @ 12:48 by Andrea Hernandez MD) Household Members: Significant Other and Family Housing: House Do you presently have visiting nurse or other home services: No Alcohol intake: never Patient Tobacco Use Status: Former Tobacco user Tobacco use type: Cigarette Cigarette Packs Per Day: 0 Cigarettes Per Day: 3 Years Smoked: 10 service: No Review of Systems Const Denies weakness ENT Denies dizziness Card Reports chest pain, Denies chest pain with activity, Denies syncope, Denies rapid heart rate, Denies pedal edema, Denies edema, Denies leg edema, Denies lig htheadedness, Denies palpitations, Denies dyspnea, Denies dyspnea on exertion and Denies orthopnea Resp Denies cough, Denies dyspnea and Denies dyspnea on exertion GI Denies hematochezia and Denies change in stool character Musc Denies abnormal gait, Denies muscle cramps, Denies muscle weakness, Denies numbness, Denies radiating pain into limb and Denies tingling Neuro Denies abnormal gait, Denies dizziness, Denies syncope, Denies numbness, Denies tingling and Denies weakness Endo Denies palpitations Physical Exam Vital Signs: Last Vital Signs Pulse 59 08/06/24 12:32 BP 120/70 08/06/24 12:32 BMI result Body Mass Index 32.3 Const General: comfortable and no acute distress Orientation/consciousness: patient oriented x3 HEENT Other: Unremarkable Head: Yes normal to inspection Neck Neck: Yes normal visual inspection Chest Chest palpation & inspection: normal inspection of the chest Resp Auscultation: clear to auscultation bilaterally Cardio Palpation: normal PMI Heart sounds: S1 normal heart sound present, S2 normal heart sound present, no gallops, no murmurs and no rubs GI Palpation (GI): Soft to palpation Back/Spine/Pelvis Other: unremarkable Skin General skin exam: no rashes or lesions noted Neuro General: patient oriented x3 Extrem General: Yes normal to inspection Psych Mental Status: mental status grossly normal Office Procedures EKG Details: EKG with sinus bradycardia at 59/Min; right bundle-branch block pattern. [id number], Complete Assessment & Plan Assessment & Plan (1) Atherosclerotic cardiovascular disease: Code(s): I25.10 - Atherosclerotic heart disease of [place] coronary artery without angina pectoris Category: Medical (2) Statin intolerance: Code(s): Z78.9 - Other specified health status Category: Medical Plan Cardiac catheterization data reviewed. Status post PCI to proximal LAD. Continue aspirin/beta-blockers. Complaining of muscle aches with statins. Last available LDL cholesterol 70 mg/dL; triglycerides 74 mg/dL. However, as the statin dose has been cut back with PCP, may recheck. Patient would like to switch to injectables and hence try Praluent. With regard to smoking, he has stopped. Follow-up in 6 months. Orders: Orders Lipid Panel Today E78.5 - Hyperlipidemia, unspecified, I25.10 - Atherosclerotic heart disease of [place] coronary artery without angina pectoris LDL Cholesterol Direct Today I25.10 - Atherosclerotic heart disease of [place] coronary artery without angina pectoris Liver Panel Today I25.10 - Atherosclerotic heart disease of [place] coronary artery without angina pectoris Medications: New alirocumab (Praluent Pen) inject into abdomen, thigh, or upper arm (deltoid muscle); rotate sites 75 mg subcut Q2W 2 mL 5RF E78.5 - Hyperlipidemia, unspecified Coding Level of Care Code Est Pt Level 4 (29074) Diagnoses Atherosclerotic cardiovascular disease I25.10 Statin intolerance Z78.9 CPT Codes EKG - CPT: 60267-Uwbiixratnmvzsehi, Complete ([id number])
--- OUTSIDE RECORDS SUMMARY | 2024-08-06 14:22 | XMS_ITS | Continuity of Care Document ---
Author Organization [facility] Address [address] [place], [place] Phone [phone] Care Team Providers Care Network Program Manager Name Role Phone Lavelle Helton MD Care Team Information Qa Tech Unavailable MARLEEN HENDERSON M.D. Care Team Information Rec eiver Unavailable Lavelle Helton MD Primary Care Physician Unavaila ble Problems Active Problems Provider Date Metabolic syndrome X Marleen Henderson M.D. Ons et: 09/28/2017 Testicular hypofunction Marleen Henderson M.D. Onset: 09/28/2017 Valentina thyroiditis Marleen Henderson M.D. On set: 09/28/2017 Secondary polycythemia Marleen Henderson M.D. O nset: 10/02/2019 Amnesia Marleen Henderson M.D. Onset: 0 09/29/2023 Vitamin D deficiency Marleen Henderson M.D. Ons et: 09/21/2022 Essential hypertension Marleen Henderson M.D. O nset: 01/21/2022 Social History Type Date Description Comments Sex Unknown Allergies and adverse reactions Active Allergies Criticality Reaction Severity Comments Date Augmentin Unable to assess criticality 09/28/2017 Medications Active Medications SIG Qnty Indications Order ing Provider Date Zepbound2.5mg/0.5ML Solution Auto-Inject inject 2.5mg subcutaneously once a week 2ml Marleen Henderson M.D. 07/23/2024 Lleocrkgv80gc Tablets 1 tab by mouth every day 90tabs Marleen Henderson M.D. 05/18/2023 BD Pen Needle/Mini/Ultra-Fi ne/31G X 5mm31G X 5 mm Misc use 1 needle a day 30units E88.81 Marleen Henderson M.D. 05/06/2022 Xyemgxl49gi Chewtabs take 1 tablet by mouth every day 90units Marleen Henderson M.D. 11/14/2018 Levothyroxine Iszlwm33hfy Tablets take 1 tablet by mouth once a day 90tabs Marleen Henderson M.D. 07/05/2018 Metoprolol Succinate ER50mg Tablets ER 24HR TK 1 T PO qd->1/2 a day(07/2022)->1/d(01/10 23)->1/2(2023) Unknown Metamucil Unknown Vit B12 Inections 1000mg x2 injections a week(YR Free) Unknown Cteajyvfz461-0.5mcg/ Act Aerosol Unknown Combivent Gmoiconu87-250bal/Ac t Aerosol Unknown Paroxetine HCL ER25mg Tablets ER 24HR Unknown Atorvastatin Uvrmnqj55vj Tablets 1 by mouth every day 90tabs Unknown Snlrqbumuv884tq Tablets Unknown Xlortzmf702si Suspension Rec Unknown Rbedhlcsai0mt Tablets as needed Unknown History Medications Vizwthvh9zj/0.5ML Solution Auto-Inject administer 5 mg under the skin 1 time a week 2ml Marleen Henderson M.D. 03/27/2024 - 07/23/2024 Zepbound2.5mg/0.5ML Solution Auto-Inject inject 2.5mg subcutaneously once a week daronl Marleen Henderson M.D. 03/21/2024 - 03/27/2024 Vftzvjej7mn/0.5ML Solution Auto-Inject administer 5 mg under the skin 1 time a week daronl Marleen Henderson M.D. 03/06/2024 - 03/21/2024 Zepbound2.5mg/0.5ML Solution Auto-Inject inject 2.5mg subcutaneously once a week 2ml Marleen Henderson M.D. 02/14/2024 - 03/06/2024 Mounjaro2.5mg/0.5ML Solution Pen-Inject inject 2.5mg subcutaneously q1week 2ml Marleen Henderson M.D. 02/12/2024 - 02/14/2024 Rbnvkmxic14fm Tablets 1 tab by mouth [place] ry day 90tabs E88.8 10 Marleen Henderson M.D. 09/29/2023 - 09/29/2023 Vitamin O6585irw (5000 Ut) Capsules 1 tab by mouth every day 90caps E55.9 Marleen Henderson M.D. 09/21/2022 - 05/17/2023 Clonidine HCL0.1mg Tablets take 1 tablet by mouth at bedtime as directed 90tabs I10 Marleen Henderson M.D. 08/12/2022 - 05/17/2023 Dttxtwr25tm/3ML Solution Pen-Inject inject 0.6 cubic centimeters injection subcutaneous every day 15ml E88.8 1 Marleen Henderson M.D. 05/06/2022 - 08/12/2022 Testosterone Tdslwmtsy138bo/ml Solution inject 0.3ml(60mg) Im every week 10ml E29.1 Marleen Henderson M.D. 02/24/2022 - 01/11/2023 BD TB Syringe 25GX5/8 Use One syringe Every Week 10units Marleen Henderson M.D. 02/24/2022 - 05/17/2023 Vxifiaumlo11ac Tablets 1 tab by mouth ev jonathan day 90tabs I10 Marleen Henderson M.D. 02/04/2022 - 05/17/2023 Nkqwtygahl5wn Tablets 1 by mouth every day 90tabs I10 Marleen Henderson M.D. 01/21/2022 - 02/04/2022 Ozempic (1 MG/Dose)4mg/3ML Solution Pen-Inject 1.0mg in skin every week 9ml E88.8 1 Marleen Henderson M.D. 07/13/2021 - 09/17/2021 Ozempic (1 MG/Dose)2mg/1.5ML Solution Pen-Inject inject 1 mg subcutaneously every week 9units E88.8 1 Marleen Henderson M.D. 07/08/2021 - 07/13/2021 Ozempic (0.25 Or 0.5 MG/Dose)2mg/1.5ML Solution Pen-Inject 0.5 mg sub cutaneously every week 4.5ml E88.8 1 Marleen Henderson M.D. 04/28/2021 - 07/08/2021 Wegovy0.25mg/0.5ML Solution Auto-Inject 0.25/week 2ml E88.8 1 Marleen Henderson M.D. 02/12/2021 - 04/28/2021 Zvxjsjfjm2vq/24HR Patches 24HR apply 1 patch daily 30units E29.1 Marleen Henderson M.D. 02/12/2021 - 07/08/2021 BD TB Syringe 25GX5/8 Use One Every Week 4units Marleen Henderson M.D. 11/13/2020 - 02/12/2021 Testosterone Hwzogvsnl672zd/ml Solution 0.5 cubic centimeters injection every week 2ml E29.1 Marleen Henderson M.D. 11/13/2020 - 02/12/2021 Ozempic (1 MG/Dose)2mg/1.5ML Solution Pen-Inject 1mg subcutaneously every week 9ml E88.8 1 Marleen Henderson M.D. 11/13/2020 - 02/03/2021 Wmyhmopko1ud/24HR Patches 24HR apply 1 patch daily 30units Marleen Henderson M.D. 09/14/2020 - 11/13/2020 Ozempic (0.25 Or 0.5 MG/Dose)2mg/1.5ML Solution Pen-Inject 0.5 mg sub cutaneously every week 1.500ml E88.8 1 Marleen Henderson M.D. 08/14/2020 - 11/13/2020 Sgvdkvcng3nk/24HR Patches 24HR apply 2 patch daily 60units E29.1 Marleen Henderson M.D. 05/01/2020 - 08/14/2020 Ozempic (0.25 Or 0.5 MG/Dose)2mg/1.5ML Solution Pen-Inject 0.25 mg sub cutaneously every week m8wfrlz then 0.5/week as tolerated 1.500ml E88.8 1 Marleen Henderson M.D. 05/01/2020 - 08/14/2020 BD TB Syringe 25GX5/8 Use One Every Week 15units Marleen Henderson M.D. 10/02/2019 - 08/14/2020 Metformin HCL QR069jy Tablets ER 24HR 1 by mouth every day 90tabs Marleen Henderson M.D. 08/19/2019 - 04/22/2020 Testosterone Cbfqsrsis729xj/ml Solution 0.3 cubic centimeters injection every week 2ml E29.1 Marleen Henderson M.D. 08/16/2018 - 08/14/2020 1ML Syringe/Needle Slip Tip 25GX5/8 Sub-Q25G X 5/8 1 ML Misc use one every 1 weeks 15units E29.1 Marleen Henderson M.D. 08/16/2018 - 02/03/2021 Levothyroxine Kxuusq01htl Tablets Take 1 Tablet Daily 90tabs Marleen Henderson M.D. 06/04/2018 - 07/05/2018 Hzfsxhmw62.5mg/2.5GM (1.62%) Gel 1 apply packets to skin daily as directed 90pkt E29.1 Marleen Henderson M.D. 05/25/2018 - 05/28/2018 Ggrqntki35.25mg/1.25GM (1.62%) Gel place 2 packets onto skin a day(one month supply=2 boxes of 30pkt each) 112.5gm E29.Curtis Henderson M.D. 05/22/2018 - 07/05/2018 Trulicity0.75mg/0.5ML Solution Pen-Inject 0.75 mg subcutaneous every week 2ml Marleen Henderson M.D. 02/16/2018 - 07/05/2018 BD Pen Needle/Mini/Ultrafine/3 1G X 3/16 31G X 5 mm Misc 1 unit every day 100units Marleen Henderson M.D. 12/07/2017 - 07/06/2018 [facility] Awwkcmk72mu Chewtabs Take 1 Tablet By Mouth Every Day 30units Marleen Henderson M.D. 11/24/2017 - 11/14/2018 Koqccpo62ei/3ML Solution Pen-Inject 1 injection every day. E66.8 4units E88.8 1 Marleen Henderson M.D. 11/23/2017 - 02/09/2018 R73.03 E66.8 Metformin HCL SC201ab Tablets ER 24HR 1 tab by mouth every day 90tabs E88.81 Marleen Henderson M.D. 09/28/2017 - 11/20/2017 Naltrexone WEQ46aq Tablets Once A Day Unknown - 09/28/2017 Epalcjngvx79mo Tablets Take 1 Tablet By Mouth Every Day Unknown - 01/27/[address] TK 2 TS PO tid Unknown - 09/28/2017 Paroxetine DUH30up Tablets Take 1 Tablet By Mouth Every Day Unknown - 09/28/2017 Ntbbbjrvxfyj695lr Tablets 2 Tablets Today, Then 1 Tablet Daily Unknown - 09/28/2017 Inkfzfbyqz93sh Tablets TK 2 TS PO D For 3 Days Unknown - 09/28/2017 Paroxetine JNK65ch Tablets TK 1 T PO qd Unknown - 09/28/2017 LamictalTablets Unknown - 12/25/2017 Hurjnxt16ig Chewtabs Take 1 Tablet By Mouth Every Day 30units Marleen Henderson M.D. - 11/24/2017 Testosterone Ulbktbnga146rn/ml Solution Unknown - 07/05/2018 Levothyroxine Kqbnpr81iou Tablets 1 by mouth every day Unknown - 06/04/2018 Bupropion Hydrochloride ER (XL)150mg Tablets ER 24HR 1/d with 215=782/d Unknown - 05/01/2020 Paroxetine HCL ER12.5mg Tablets ER 24HR 1/d Unknown - 08/14/2020 Paroxetine HCL ER25mg Tablets ER 24HR 1/d Unknown - 05/06/2022 Bupropion Hydrochloride ER (XL)150mg Tablets ER 24HR 2/d Unknown - 02/12/2021 Atorvastatin Smvoavi67xg Tablets 1 by mouth every day 90tabs Unknown - 05/17/2023 Paroxetine HCL ER37.5mg Tablets ER 24HR 1/d Unknown - 05/17/2023 Rwinulpa15wu Tablets Unknown - 04/05/2024 Metoprolol Succinate ER50mg Tablets ER 24HR Unknown - 05/17/2023 Sulfacetamide Aqstbw24% Solution Unknown - 09/28/2017 Bupropion HCL ER (XL)300mg Tablets ER 24HR 1/d with 150-450/d Unknown - 05/01/2020 Escitalopram Iypqzel3zt Tablets Unknown - 09/28/2017 Nitroglycerin0.4mg Tablets Noemi Finley MD - 09/28/2017 Testosterone Gadmwgyph997uh/ml Solution Unknown - 09/28/2017 Levothyroxine Hvoimm91zkf Tablets 1 take tablet once daily 90tabs Marleen Henderson M.D. - 02/09/2018 Kauvvbhivst58qa Tablets Unknow n - 09/28/2017 Doxycycline Pfxtlcn479lx Capsules Unknown - 09/28/2017 Phenazopyridine AXK154il Tablets Unknown - 09/28/2017 Xrcwkyfftfm828hf Tablets TK 1 T PO bid Unknown - 09/28/[address] Take One Capsule By Mouth Every Day Unknown - 09/28/2017 Qflwvuujbybo21lb Capsules Unknown - 09/28/2017 Ketorolac Ozvnbxzldzag08fk Tablets Unknown - 09/28/2017 Paroxetine OFS45yy Tablets Unknown - 09/28/2017 Ventolin ZBS592(90Base) mcg/Act Aerosol Inl 2 Puffs PO Q 4 H PRF Wheezing Unknown - 09/28/2017 Paroxetine QYE16hs Tablets Unknown - 09/28/2017 Bupropion HCL ER (SR)100mg Tablets ER 12HR Unknown - 11/20/2017 Trazodone FNH61yr Tablets Unknown - 09/28/2017 Isosorbide Dinitrate ER40mg Tablets ER Take 1 Tablet Once A Day Unknown - 09/28/2017
== END 2024-08-06 12:59 | disposition home or self-care (01) ==
PROVIDERS: Visit Provider Internal Medicine
DX: I25.10 Atherosclerotic heart disease of native coronary artery without angina pectoris (principal); Z78.9 Other specified health status
CPT/HCPCS: 93010; 99214

== ENCOUNTER → 2024-08-06 12:16 | Outpatient (BNVA) | payer BC, SELFPAY ==
[2023-07-06 13:38] VITALS: BP 124/54; BP 124/68; BP 130/64; BMI 36.3
== END ==
PROVIDERS: Visit Provider Internal Medicine
DX: I25.10 Atherosclerotic heart disease of native coronary artery without angina pectoris (principal); Z78.9 Other specified health status; Z79.82 Long term (current) use of aspirin; Z79.899 Other long term (current) drug therapy
CPT/HCPCS: 93005

== ENCOUNTER 2025-02-04 11:55 | Outpatient (AMB) | payer BC, SELFPAY ==
[2023-07-06 13:38] VITALS: BP 124/54; BP 124/68; BP 130/64; BMI 36.3
[2025-02-04 12:36] VITALS: BP 124/68; PULSE 77; BMI 38.0
--- NOTE | 2025-02-04 12:36 | A.OFFVIS_ITS ---
Vital Signs 02/04/25 12:36 Height 6 ft Weight 279 lb 15.793 oz BMI 38.0 BP 124/68 Blood Pressure Location Lt brachial Position Sitting Pulse 77 Pulse Source Pulse Oximeter Intake Visit Reasons: 6m follow up Allergies codeine Allergy (Unknown, Verified 08/03/23 13:41) unknown mint Allergy (Unknown, Verified 08/03/23 13:41) unknown amoxicillin (From Augmentin) Allergy (Verified 08/03/23 13:41) Unknown clavulanic acid (From Augmentin) Allergy (Verified 08/03/23 13:41) Unknown Medication List - Last Reconciled 02/04/25 by Andrea Hernandez MD alprazolam 1 mg PO BID PRN aspirin 81 mg PO DAILY atorvastatin 40 mg PO BEDTIME evolocumab (Repatha SureClick) 140 mg subcut Q2W ipratropium-albuterol 0.5 mg-3 mg(2.5 mg base)/3 mL 3 mL inhalation Q6H PRN levothyroxine (Synthroid) 75 mcg PO DAILY metformin 500 mg PO DAILY metoprolol succinate ER 25 mg PO paroxetine HCl ER 25 mg PO DAILY HPI Comments Details: Delta returns for follow-up regarding coronary disease. He has a background of COPD. In 2022, he was admitted for chest pain and had low-grade troponin leak. Treated as NSTEMI and underwent cardiac catheterization/LAD stenting. He has been stable from that standpoint. He has a history of statin intolerance with aches and pains. Then doses have been cut back and then he was put on Repatha. For the last few months, he has had tiredness and he felt it was from Repatha and has not taken it for the last few weeks but there is no difference in his symptoms and hence not likely medication related. Otherwise, he feels okay. [facility] Medical History (Updated 02/04/25 @ 13:42 by Andrea Hernandez MD) Prostate cancer MAGALIS on CPAP Smoking Hypothyroidism Depression GERD (gastroesophageal reflux disease) Surgical History (Updated 02/04/25 @ 13:40 by Andrea Hernandez MD) History of prostatectomy Family History Father Myocardial infarction Social History (Updated 08/06/24 @ 12:48 by Andrea Hernandez MD) Household Members: Significant Other and Family Housing: House Do you presently have visiting nurse or other home services: No Alcohol intake: never Patient Tobacco Use Status: Former Tobacco user Tobacco use type: Cigarette Cigarette Packs Per Day: 0 Cigarettes Per Day: 3 Years Smoked: 10 service: No Review of Systems Const Denies weakness ENT Denies dizziness Card Denies chest pain, Denies chest pain with activity, Denies syncope, Denies rapid heart rate, Denies pedal edema, Denies edema, Denies leg edema, Denies lightheadedness, Denies palpitations, Denies dyspnea, Denies dyspnea on exertion and Denies orthopnea Resp Denies cough, Denies dyspnea and Denies dyspnea on exertion GI Denies hematochezia and Denies change in stool character Musc Denies abnormal gait, Denies muscle cramps, Denies muscle weakness, Denies numbness, Denies radiating pain into limb and Denies tingling Neuro Denies abnormal gait, Denies dizziness, Denies syncope, Denies numbness, Denies tingling and Denies weakness Endo Denies palpitations Physical Exam Vital Signs: Last Vital Signs Pulse 77 02/04/25 12:36 BP 124/68 02/04/25 12:36 BMI result Body Mass Index 38.0 Const General: comfortable and no acute distress Orientation/consciousness: patient oriented x3 HEENT Other: Unremarkable Head: Yes normal to inspection Neck Neck: Yes normal visual inspection Chest Chest palpation & inspection: normal inspection of the chest Resp Auscultation: clear to auscultation bilaterally Cardio Palpation: normal PMI Heart sounds: S1 normal heart sound present, S2 normal heart sound present, no gallops, no murmurs and no rubs GI Palpation (GI): Soft to palpation Back/Spine/Pelvis Other: unremarkable Skin General skin exam: no rashes or lesions noted Neuro General: patient oriented x3 Extrem General: Yes normal to inspection Psych Mental Status: mental status grossly normal Assessment & Plan Assessment & Plan (1) Atherosclerotic cardiovascular disease: Code(s): I25.10 - Atherosclerotic heart disease of [place] coronary artery without angina pectoris Category: Medical (2) Statin intolerance: Code(s): Z78.9 - Other specified health status Category: Medical (3) MAGALIS on CPAP: Code(s): G47.33 - Obstructive sleep apnea (adult) (pediatric) Category: Medical Plan Cardiac catheterization data reviewed. Status post PCI to proximal LAD. Continue aspirin/beta-blockers. Has had muscle aches with statins but still on small dose. Tiredness that he believes from Repatha is most likely not medication related as he still has the symptoms in spite of stopping the medication. Hence may resume Repatha alone without any statins and try. He has stopped smoking. We will follow up in 6 months time. In the interim, he will call with concerns. Discussion Notes I discussed with the patient the potential causes of his fatigue, including the possibility of it being related to his medication regimen. We considered stopping statins to see if this improves his symptoms, while continuing Repatha. I advised him to follow up with his regular doctor to reassess his overall health status. Patient was informed and verbally consented to the use of an ambient scribe for clinic note documentation during this visit. Patient Instructions: - Monitor your fatigue and note any changes. - Continue taking Repatha as prescribed. - Follow up with your regular doctor in February. - Continue taking vitamin D and iron supplements. - Ensure your CPAP machine settings are optimal and continue its use. Coding Level of Care Code Est Pt Level 4 (06034) Complex EM visit Add On G2211 Diagnoses Atherosclerotic cardiovascular disease I25.10 Statin intolerance Z78.9 MAGALIS on CPAP G47.33
--- OUTSIDE RECORDS SUMMARY | 2025-02-04 13:14 | XMS_ITS | Clinical Summary ---
Author Organization [facility] Address [address] [place] [address] Care Team Providers Care Radio Division Captain Name Role Phone System, Provider Not In Primary Care Provider Un available Allergies Active Allergy Reactions Criticality Noted Date Comments Amoxicillin-Pot Clavulanate Rash/Dermatitis Low Codeine Hives Medium 2016 Latex Hives Medium 12/17/2023 Medications Brilinta 90 MG tablet 4 Active PARoxetine (PAXIL-CR) 25 MG 24 hr tablet 4 Active metoPROLOL TARTRATE (LOPRESSOR) 25 MG tablet Take 25 mg by mouth. 3 Active Synthroid 75 MCG tablet 4 Active atorvastatin (LIPITOR) 80 MG tablet Take 80 mg by mouth daily. 4 Active buPROPion (WELLBUTRIN XL) 300 MG 24 hr tablet 4 Active furosemide (LASIX) 20 MG tablet Take 20 mg by mouth. 3 Active Aspirin Low Dose 81 MG chewable tablet 4 Active ALPRAZolam (XANAX) 1 MG tablet 4 Active cetirizine (ZyrTEC) 10 MG tabletIndications: Allergic conjunctivitis and rhinitis, bilateral Take 1 tablet (10 mg total) by mouth daily. 30 tablet 4 Active predniSONE (DELTASONE) 20 MG tabletIndications: Allergic conjunctivitis and rhinitis, bilateral Take 2 tablets (40 mg total) by mouth daily. With food. 10 tablet 4 Active tobramycin (TOBREX) 0.3 % ophthalmic solutionIndication s:Bacterial conjunctivitis Administer 1 drop into the left eye every 4 (four) hours. 5 mL 4 Active Active Problems No known active problems Social History Tobacco Use Types Packs/Day Years Used Date Smoking Tobacco: Never Assessed Sex and Gender Information Value Date Recorded Sex Assigned at Not on file Legal Sex Male 3:23 PM EDT Gender Identity Not on file Sexual Orientation Not on file Last Filed Vital Signs Vital Sign Reading Time Taken Comments Blood Pressure 124/80 12/17/2023 3:39 PM EDT Pulse 65 12/17/2023 3:39 PM EDT Temperature 36.3 C (97.4 F) 12/17/2023 3:39 PM EDT Respiratory Rate 16 12/17/2023 3:39 PM EDT Oxygen Saturation 96% 12/17/2023 3:39 PM EDT Inhaled Oxygen Concentration - - Weight - - Height - - Body Mass Index - - Plan of Treatment Health Maintenance Due Date Last Done Comments Hepatitis C Virus Screening 1964 HIV Screening 1977 DTaP/Tdap/Td Vaccines (1 - Tdap) 12/07/1983 Colonoscopy 2009 Pneumococcal Vaccines 50+ (1 of 1 - PCV) 2014 Zoster (Shingles) Vaccine (1 of 2) 2014 COVID-19 Vaccine (4 - 2023-2 5 season) 2024 06/30/2021, 09/29/2020, 09/08/2020 Influenza Vaccine 02/21/2025 06/30/2021, 05/09/2020 RSV Vaccine 60 years and older and Patients (1 - 1-dose 75+ series) 12/07/2039 Hepatitis B Vaccines Aged Out No long er eligible based on patient's age to complete this topic Insurance [facility] - PPO Care Teams Radio Division Captain Relationship Specialty Start Date End Date System, Provider Not In PCP - General 12/17/23
--- OUTSIDE RECORDS SUMMARY | 2025-02-04 13:14 | XMS_ITS | Clinical Summary ---
Author Organization [facility] Address [address] [place] [address] Phone Care Team Providers Care Physical Geographer Name Role Phone Jewels Grace Primary Care Provider [phone] Allergies Active Allergy Reactions Criticality Noted Date Comments Adhesive Tape-Silicones Hives 06/11/2024 Amoxicillin-Pot Clavulanate Itching 06/11/20 24 Codeine Itching 06/11/2024 Medications budesonide-for moteroL (SYMBICORT) 160-4.5 mcg/actuation inhaler Inhale 2 puffs by mouth. 05/15/20 23 Active fluticasone propion-salmet Alyson (ADVAIR HFA) 230-21 mcg/actuation inhaler Inhale 2 puffs by mouth. 03/18/20 24 025 Active levothyroxine (SYNTHROID, LEVOTHROID) 75 mcg tablet Take 1 tablet (75 mcg total) by mouth. Active PARoxetine CR (PAXIL-CR) 25 mg 24 hr tablet Take 1 tablet (25 mg total) by mouth 1 (one) time each day in the morning. Active ALPRAZolam (XANAX) 1 mg tablet Take 1 tablet (1 mg total) by mouth. 12/11/19 24 Active Repatha SureClick 140 mg/mL pen injector injection Inject 1 mL (140 mg total) under the skin every 14 (fourteen) days. 08/10/19 25 Active metoprolol succinate (TOPROL-XL) 50 mg 24 hr tablet TAKE 1 TABLET BY MOUTH EVERY DAY 90 tablet 1 12/13/19 25 Active fluticasone furoate (Arnuity Ellipta) 100 mcg/actuation blister with device inhaler Inhale 1 puff by mouth 1 (one) time each day. 1 each 12/24/19 25 026 Active ipratropium-al buteroL (COMBIVENT RESPIMAT) 20-100 mcg/actuation inhaler Inhale 2 puffs by mouth every 6 (six) hours if needed for wheezing or shortness of breath. 14.7 g 12/25/19 25 Active atorvastatin (LIPITOR) 80 mg tablet TAKE 1 TABLET DAILY 90 tablet 1 01/09/20 25 Active aspirin 81 mg chewable tablet Chew 1 tablet (81 mg total) 1 (one) time each day. 30 each 2 01/09/20 25 025 Active fkpej-[id number]-[id number]-e pa-fish oil 600-1,000 mg capsule Take 1 capsule by mouth 2 (two) times daily morning and afternoon. 180 capsule 1 01/15/20 25 Active aspirin 81 mg chewable tablet Chew 1 tablet (81 mg total) 1 (one) time each day. 01/05/20 24 025 Discontinued(Re order) buPROPion XL (WELLBUTRIN XL) 300 mg 24 hr tablet Per BH 10/19/19 24 025 Discontinued atorvastatin (LIPITOR) 80 mg tablet TAKE 1 TABLET DAILY 90 tablet 07/15/20 24 025 Discontinued Zepbound 2.5 mg/0.5 mL injection Inject 0.5 mL (2.5 mg total) under the skin every 7 (seven) days. 02/19/20 24 025 Discontinued predniSONE (DELTASONE) 20 mg tablet Take 3 tab by mouth for 2 days, then 2 tab by mouth for 2 days, then 1 tab by mouth for 2 days. Take with food in the morning. 12 tablet 12/25/19 25 025 Discontinued(Pa tient Discharge) Active Problems Problem Noted Date Diagnosed Date Class 2 severe obesity with serious comorbidity and body mass index (BMI) of 38.0 to 38.9 in adult ([facility] V24, [facility] V28) 12/23/2024 NSTEMI (non-ST elevated myoc ardial infarction) ([facility] V24, [facility] V28) 01/27/2023 HLD (hyperlipidemia) 05/17/2022 Phelps's esophagus 11/01/2021 Hypogonadism in male 08/06/2021 MAGALIS on CPAP 08/06/2021 Generalized anxiety disorder 08/02/2021 Hypothyroidism 08/02/2021 Primary hypertension 08/02/2021 Encounters Date Type Department Care Team Description 01/28/2025 Telephone Internal Medicine - [address] [phone] Grace Donis DO 01/08/2025 3:30 PM EDT Office Visit Internal Medicine - [address] [phone] Grace Donis DO Other fatigue (Primary Dx); Coronary artery disease due to lipid rich plaque; Hyperlipidemia, unspecified hyperlipidemia type; Chronic obstructive pulmonary disease, unspecified COPD type ([facility] V24, [facility] V28); Hypothyroidism, unspecified type 01/08/2025 Telephone Internal Medicine - [address] [phone] Grace Donis DO Fatigue 12/24/2024 3:00 PM EDT Office Visit Walk-In Clinic - [address] [phone] Raymundo Walsh PA COPD exacerbation ([facility] V24, [facility] V28) (Primary Dx) 12/24/2024 Telephone Internal Medicine - [address] [phone] Grace Donis DO Pneumonia [facility] [address] [phone] Erendira Loera [place] 12/23/2024 10:00 AM EDT [facility] [address] [phone] Adelita Moncada MD MAGALIS on CPAP (Primary Dx); Chronic obstructive pulmonary disease, unspecified COPD type ([facility] V24, [facility] V28); Ex-smoker; COPD with asthma ([facility] V24, [facility] V28) 12/23/2024 9:30 AM EDT Nutrition Bariatric Surgery - [address] [place] [address] Class 2 severe obesity with serious comorbidity and body mass index (BMI) of 38.0 to 38.9 in adult, unspecified obesity type ([facility] V24, [facility] V28) (Primary Dx) 12/23/2024 Telephone Pulmonolgy - [address] [place] [phone] [facility] [place], [place] 11/14/2024 9:30 AM EDT Consult Bariatric Surgery [address] [place] [address] Ramiro Shirley MD Class 2 obesity due to excess calories with body mass index (BMI) of 36.0 to 36.9 in adult, unspecified whether serious comorbidity present (Primary Dx) from Last 3 Months Immunizations Name Administration Dates Next Due Influenza trivalent, 0.5mL, preservative free (Fluarix; FluLaval; Fluzone) ages 6mo and older (Afluria) 3 years and older 06/30/2021,05/09/2020 Pfizer SARS-CoV-2 COVID-19, mRNA, LNP-S, preservative free 06/30/2021 Pneumococcal conjugate 20 va lent (Prevnar 20, PCV 20) 2mo and older 07/12/2023 Tdap Tetanus diptheria acell ular pertussis (Boostrix; Adacel) 7yo and older 03/17/2023 Surgical History Surgery Date Site/Laterality Comments OTHER SURGICAL HISTORY PROCEDURE: ID INSTLJ VIA CHEST TUBE/CATH AGENT FOR PLEURODESIS TONSILLECTOMY PROCEDURE: HISTORICAL TONSILLECTOMY NASAL SEPTUM SURGERY PROCEDURE: ID SEPTOPLASTY/SUBMUCOUS RESECJ W/WO CARTILAGE GRF; COMMENT: X2 CARPAL TUNNEL RELEASE Bilateral PROCEDURE: HISTORICAL CARPAL TUNNEL REL OTHER SURGICAL HISTORY PROCEDURE: ID ANES VASECTOMY UNI/BI INCL OPEN URETHRAL PX OTHER SURGICAL HISTORY 12/2022 PROCEDURE: ID PATIENT HAS A CORONARY ARTERY STENT; COMMENT: Drug-eluting in proximal LAD Medical History Medical History Date Comments Primary hypertension 08/02/2021 DX:Primary hypertension Hypothyroidism 08/02/2021 DX:Hypothyroidis m Hypogonadism in male 08/06/2021 DX:Hypogona dism in male Phelps's esophagus 11/01/2021 DX:Phelps's esophagus MAGALIS on CPAP 08/06/2021 DX:MAGALIS on CPAP History of COVID-19 09/15/2021 DX:History o f COVID-19; COMMENT: Pt tested positive 08/29/21 at Generalized anxiety disorder 08/02/2021 DX: Generalized anxiety disorder HLD (hyperlipidemia) DX:HLD (hyp erlipidemia) NSTEMI (non-ST elevated myoc ardial infarction) (CMS/HCC V24, CMS/HCC V28) DX:NSTEMI (non- ST elevated myocardial infarction) ([facility]) Family History Medical History Relation Name Comments Heart attack Father decreased at 52 from [place] Other cancer Maternal Grandfather lung ca ncer? COPD Mother lung cancer Lung cancer Mother Colon cancer Neg Hx Prostate cancer Neg Hx Relation Name Status Comments Father Maternal Grandfather Mother Social History Tobacco Use Types Packs/Day Years Used Date Smoking Tobacco: Former Cigarettes 0.3 2.5 0 07/24/2020 - 02/03/2023 Smokeless Tobacco: Never Tobacco Cessation:Counseling Given: Not Answered Alcohol Use Standard Drinks/Week Comments Not Currently 0 (1 standard drink = 0.6 oz pur e alcohol) Housing Instability Answer Date Recorde d Are you worried that in the next 2 months you may not have stable housing? No 01/08/2025 Food Access & Nutrition Answer Date Rec orded Do you have access to a vari ety of food including fruits and vegetables? Yes 01/08/2025 Health Literacy Answer Date Recorded How often do you need to hav e someone help you when you read instructions, pamphlets, or other written material from your doctor or pharmacy? Never 01/08/2025 Caregiver: How often do you need to have someone help you when you read instructions, pamphlets, or other written material from your doctor or pharmacy? Not on file 01/08/2025 Financial Risk Answer Date Recorded How hard is it for you to pa y for the very basics like food, housing, medical care, and air conditioning / heating? Not very hard 01/08/2025 Transportation Answer Date Recorded Has the lack of transportati on kept you from meetings, work, or from getting things needed for daily living? No Has the lack of transportati on kept you from medical appointments or from getting medications? No 01/08/2025 Social Isolation Answer Date Recorded How often do you feel lonely or isolated from th ose around you? Rarely 01/08/2025 Food Risk Answer Date Recorded Within the past 12 months we worried whether our food would run out before we got money to buy more. Never true 01/08/2025 Within the past 12 months th e food we bought just didn't last and we didn't have money to get more. Never true 01/08/2025 Dependent Care Answer Date Recorded Do you need help finding or paying for care for your loved ones. For example, teacher early childhood development or elderly care for an older adult? No 01/08/2025 Education Answer Date Recorded Do you think completing more education or training, like finishing a GED, going to college, or learning a trade, would be helpful for you? No 01/08/2025 Employment and Income Answer Date Recor ded During the last four weeks, have you been actively looking for work? No 01/08/2025 Living Situation Answer Date Recorded What is your living situation? 0 01/08/2025 Interpersonal Safety Answer Date Record ed Physical Abuse 06/17/2024 Verbal Abuse 06/17/2024 Sex and Gender Information Value Date Recorded Sex Assigned at Male 06/11/2024 9:43 AM EST Legal Sex Male 10:08 AM EST Gender Identity Male 06/11/2024 9:43 AM EST Sexual Orientation Straight 06/11/2024 9: 43 AM EST Obstetrics History Last Filed Vital Signs Vital Sign Reading Time Taken Comments Blood Pressure 132/62 01/08/2025 3:09 PM EDT aut o Pulse 80 01/08/2025 3:09 PM EDT Temperature 36.6 C (97.8 F) 12/24/2024 3:22 PM EDT Respiratory Rate 16 12/23/2024 10:52 AM EDT Oxygen Saturation 95% 12/24/2024 3:22 PM EDT Inhaled Oxygen Concentration - - Weight 129 kg (284 lb 3.2 oz) 01/08/2025 3:09 PM EDT Height 185.4 cm (6' 1 ) 01/08/2025 3:09 PM EDT Body Mass Index 37.5 01/08/2025 3:09 PM EDT Plan of Treatment Upcoming Encounters Date Type Department Care Team (Late st Contact Info) Description 02/26/2025 8:00 AM EDT Nutrition Bariatric Surgery - [place] 175 [facility] [address] [place] [address] Moraima Zhang, RD 175 [facility] [place] [address] [place] [phone] Health Maintenance Due Date Last Done Comments Diabetes: Annual Foot Exam 1974 Zoster Vaccines (1 of 2) 12/07/1983 HIV Screening 07/03/2022 COVID-19 Vaccine (2023-2 5 season) 2024 06/30/2021, 09/29/2020, 09/08/2020 Diabetes: Annual Urine Albumin-Creatinine Ratio (uACR) 09/06/2024 08/02/2021 RSV Immunization Adult Patients (1 - Risk 60-74 years 1-dose series) 2024 Influenza Vaccine (#1) 2025 , 05/09/2020 Diabetes: Blood Sugar Contro l Test (HGBA1C) 07/15/2025 01/13/2025, 05/12/2022 Diabetes: Annual Retina Eye Exam 08/02/2025 08/02/2024 Depression Screening 01/08/2026 01/08/2025 Diabetes: Annual GFR (Glomerular Filtration Rate) 01/08/2026 01/08/2025, 02/19/2024, 02/19/2024 Hypertension/CHF/CAD Annual BMP Blood Test 01/08/2026 01/08/2025, 02/19/2024, 02/19/2024 Social Influencers of Health Screening 01/08/2026 01/08/2025 Cholesterol Screening (Lipid Panel) 05/12/2027 05/12/2022 DTaP,Tdap,and Td Vaccines (2 - Td or Tdap) 03/17/2033 03/17/2023 Colorectal Cancer Screening: Colonoscopy 06/17/2034 06/17/2024 Hepatitis C Screening Completed 11/08/2021 Pneumococcal Vaccine: 50+ Years Completed 07/12/2023 HIB Vaccines Aged Out No longer eligi ble based on patient's age to complete this topic HPV Vaccines Aged Out No longer eligi ble based on patient's age to complete this topic Hepatitis A Vaccines Aged Out No long er eligible based on patient's age to complete this topic Hepatitis B Vaccines Aged Out No long er eligible based on patient's age to complete this topic IPV Vaccines Aged Out No longer eligi ble based on patient's age to complete this topic MMR Vaccines Aged Out No longer eligi ble based on patient's age to complete this topic Meningococcal ACWY Vaccine Aged Out N o longer eligible based on patient's age to complete this topic Meningococcal B Vaccine Aged Out No l onger eligible based on patient's age to complete this topic RSV Immunization Patients Under 20 months Aged Out No longer eligible b ased on patient's age to complete this topic Varicella Vaccines Aged Out No longer eligible based on patient's age to complete this topic Procedures Procedure Name Priority Date/Time Associated Diagnosis Comments HEMOGLOBIN A1C Routine 01/13/2025 9:50 AM EDT Elevated glucose GAMMA GLUTAMYL TRANSFERASE Routine 01/13/2025 9:50 AM EDT Elevated alkaline phosphatase level ALKALINE PHOSPHATASE Routine 01/13/2025 9:50 AM EDT Elevated alkaline phosphatase level CBC WITH AUTO DIFFERENTIAL Routine 01/08/2025 3:39 PM EDT Other fatigue THYROID STIMULATING HORMONE WITH REFLEX TO FREE T4 AND FREE T3 Routine 01/08/2025 3:39 PM EDT Other fatigue FERRITIN Routine 01/08/2025 3:39 PM EDT Other fatigue FOLATE Routine 01/08/2025 3:39 PM EDT Other fatigue IRON AND TIBC Routine 01/08/2025 3:39 PM EDT Other fatigue VITAMIN B12 Routine 01/08/2025 3:39 PM EDT Other fatigue VITAMIN D 25 HYDROXY Routine 01/08/2025 3:39 PM EDT Other fatigue COMPREHENSIVE METABOLIC PANEL Routine 01/08/2025 3:39 PM EDT Other fatigue CBC AND DIFFERENTIAL Routine 01/08/2025 3:39 PM EDT Other fatigue POC RAPID [id number], MOLECULAR Routine 12/24/2024 4:22 PM EDT COPD exacerbation (CMS/HCC V24, CMS/HCC V28) DIABETES EYE EXAM 08/02/2024 COLONOSCOPY Routine 06/17/2024 8:01 AM EST Personal history of colon polyps, unspecified LIPID PANEL Routine 05/12/2022 HEPATITIS C SCREENING Routine 11/08/2021 URINE ALBUMIN CREATININE RATIO Routine 08/02/2021 from Last 3 Months or Most Recently Relevant to Health Maintenance Results * (ABNORMAL) Alkaline phosphatase (01/13/2025 9:50 AM EDT) Alkaline Phosphatase 128(H) 42 - 121 unit/L LAB CHEMISTRY METHOD 01/13/2025 2:40 PM EDT [facility] Blood Venous blood specimen / Unknown Venipuncture / Unknown 01/13/2025 9:50 AM EDT 01/13/2025 9:50 AM EDT us Valdez NAM LAB BLOOD ORDERABLES Fi nal Result [facility] [address] [place] [address], [place] [phone] * Hemoglobin A1c (01/13/2025 9:50 AM EDT) [facility] Hemoglobin A1C 5.8 <6.5 % LAB CHEMISTRY METHOD 01/13/2025 2:11 PM EDT [facility] Mean Bld Glu Estim. 120 mg/dL LAB CHEMISTRY METHOD 01/13/2025 2:11 PM EDT [facility] Blood Venous blood specimen / Unknown Venipuncture / Unknown 01/13/2025 9:50 AM EDT 01/13/2025 9:50 AM EDT [place] NAM LAB BLOOD ORDERABLES Fi nal Result Performing Organization Address City/[facility]/ZIP Co de Phone Number [facility] [address] [place] [address], * GGT (01/13/2025 9:50 AM EDT) [facility] GGT 34 7 - 64 unit/L LAB CHEMISTRY METHOD 01/13/2025 2:38 PM EDT [facility] Blood Venous blood specimen / Unknown Venipuncture / Unknown 01/13/2025 9:50 AM EDT 01/13/2025 9:50 AM EDT [place] NAM LAB BLOOD ORDERABLES Fi nal Result Performing Organization Address City/[facility]/ZIP Co de Phone Number [facility] [address] [place] [address], [place] [phone] * Thyroid stimulating hormone with reflex to free t4 and free t3 (01/08/2025 3:39 PM EDT) [facility] TSH 1.93 0.40 - 4.00 mcIU/mL LAB CHEMISTRY METHOD 01/08/2025 7:18 PM EDT [facility] Blood Venous blood specimen / Unknown Venipuncture / Unknown 01/08/2025 3:39 PM EDT 01/08/2025 3:39 PM EDT us Grace Donis DO LAB BLOOD ORDERABLES Final Res ult [facility] [address] [place] [address], [place] [phone] * (ABNORMAL) CBC auto differential (01/08/2025 3:39 PM EDT) [facility] WBC 8.4 4.8 - 10.8 K/mcL LAB HEMETOLOGY METHOD 01/08/2025 6:55 PM EDT [facility] RBC 4.60 4.50 - 5.50 M/mcL LAB HEMETOLOGY METHOD 01/08/2025 6:55 PM EDT [facility] Hemoglobin 13.4(L) 13.5 - 17.5 g/dL LAB HEMETOLOGY METHOD 01/08/2025 6:55 PM EDT [facility] Hematocrit 40.7(L) 42.0 - 54.0 % LAB HEMETOLOGY METHOD 01/08/2025 6:55 PM EDT [facility] MCV 87.7 79.0 - 98.0 FL LAB HEMETOLOGY METHOD 01/08/2025 6:55 PM EDT [facility] MCH 28.9 27.0 - 32.0 pcg LAB HEMETOLOGY METHOD 01/08/2025 6:55 PM EDT [facility] MCHC 32.9 32.0 - 37.0 g/dL LAB HEMETOLOGY METHOD 01/08/2025 6:55 PM EDT [facility] RDW 13.5 11.0 - 15.0 % LAB HEMETOLOGY METHOD 01/08/2025 6:55 PM EDT [facility] Platelets 226 130 - 400 K/mcL LAB HEMETOLOGY METHOD 01/08/2025 6:55 PM EDT [facility] MPV 10.9 7.0 - 11.0 FL LAB HEMETOLOGY METHOD 01/08/2025 6:55 PM EDT [facility] NRBC 0.0 <1.0 % LAB HEMETOLOGY METHOD 01/08/2025 6:55 PM EDT [facility] NRBC Absolute 0.00 <0.10 K/mcL LAB HEMETOLOGY METHOD 01/08/2025 6:55 PM EDT [facility] Neutrophils Relative 62.2 % LAB HEMETOLOGY METHOD 01/08/2025 6:55 PM EDT [facility] Lymphocytes Relative 28.1 % LAB HEMETOLOGY METHOD 01/08/2025 6:55 PM EDT [facility] Monocytes Relative 6.2 % LAB HEMETOLOGY METHOD 01/08/2025 6:55 PM EDT [facility] Eosinophils Relative 2.3 % LAB HEMETOLOGY METHOD 01/08/2025 6:55 PM EDT [facility] Basophils Relative 0.7 % LAB HEMETOLOGY METHOD 01/08/2025 6:55 PM EDT [facility] Immature Granulocytes Relative 0.5 % LAB HEMETOLOGY METHOD 01/08/2025 6:55 PM EDT [facility] Neutrophils Absolute 5.24 1.50 - 7.00 K/mcL LAB HEMETOLOGY METHOD 01/08/2025 6:55 PM EDT [facility] Lymphocytes Absolute 2.37 1.00 - 5.00 K/mcL LAB HEMETOLOGY METHOD 01/08/2025 6:55 PM EDT [facility] Monocytes Absolute 0.52 0.20 - 1.00 K/mcL LAB HEMETOLOGY METHOD 01/08/2025 6:55 PM EDT [facility] Eosinophils Absolute 0.19 0.00 - 0.50 K/mcL LAB HEMETOLOGY METHOD 01/08/2025 6:55 PM EDT [facility] Basophils Absolute 0.06 0.00 - 0.20 K/[facility] LAB HEMETOLOGY METHOD 01/08/2025 6:55 PM EDT [facility] Immature Granulocytes Absolute 0.04(H) 0.00 - 0.03 K/[facility] LAB HEMETOLOGY METHOD 01/08/2025 6:55 PM EDT [facility] Blood Venous blood specimen / Unknown Venipuncture / Unknown 01/08/2025 3:39 PM EDT 01/08/2025 3:39 PM EDT Grace Donis DO LAB BLOOD ORDERABLES Final Res ult Performing Organization Address [facility]/ZIP Co de Phone Number [facility] [address] [place] [address], * (ABNORMAL) Iron and TIBC (01/08/2025 3:39 PM EDT) Iron 55 50 - 160 mcg/dL LAB CHEMISTRY METHOD 01/08/2025 7:17 PM EDT [facility] TIBC 290 250 - 450 mcg/dL LAB CHEMISTRY METHOD 01/08/2025 7:17 PM EDT [facility] Iron Saturation 19(L) 20 - 50 % LAB CHEMISTRY METHOD 01/08/2025 7:17 PM EDT [facility] Blood Venous blood specimen / Unknown Venipuncture / Unknown 01/08/2025 3:39 PM EDT 01/08/2025 3:39 PM EDT Grace Donis DO LAB BLOOD ORDERABLES Final Res ult Performing Organization Address [facility]/ZIP Co de Phone Number [facility] [address] [place] [address], * (ABNORMAL) Vitamin D 25 hydroxy (01/08/2025 3:39 PM EDT) Vit D, 25-Hydroxy 25.1(L) 30.0 - 80.0 ng/mL LAB CHEMISTRY METHOD 01/08/2025 7:18 PM EDT [facility] Blood Venous blood specimen / Unknown Venipuncture / Unknown 01/08/2025 3:39 PM EDT 01/08/2025 3:39 PM EDT [facility] LAB BLOOD ORDERABLES Final Res ult Performing Organization Address City/[facility]/ZIP Co de Phone Number [facility] [address] [place] [address], [place] [phone] * (ABNORMAL) Folate (01/08/2025 3:39 PM EDT) [facility] Folate >20.0(H) 2.8 - 17.0 ng/ml LAB CHEMISTRY METHOD 01/08/2025 7:17 PM EDT [facility] Blood Venous blood specimen / Unknown Venipuncture / Unknown 01/08/2025 3:39 PM EDT 01/08/2025 3:39 PM EDT [facility] LAB BLOOD ORDERABLES Final Res ult [facility] [address] [place] [address], [place] [phone] * Ferritin (01/08/2025 3:39 PM EDT) [facility] Ferritin 102 26 - 388 ng/mL LAB CHEMISTRY METHOD 01/08/2025 7:17 PM EDT [facility] Blood Venous blood specimen / Unknown Venipuncture / Unknown 01/08/2025 3:39 PM EDT 01/08/2025 3:39 PM EDT [facility] LAB BLOOD ORDERABLES Final Res ult [facility] [address] [place] [address], [place] [phone] * Vitamin B12 (01/08/2025 3:39 PM EDT) Pathologist [facility] Vitamin B-12 850 250 - 900 pcg/mL LAB CHEMISTRY METHOD 01/08/2025 7:17 PM EDT [facility] Blood Venous blood specimen / Unknown Venipuncture / Unknown 01/08/2025 3:39 PM EDT 01/08/2025 3:39 PM EDT [facility] LAB BLOOD ORDERABLES Final Res ult Performing Organization Address City/[facility]/ZIP Co de Phone Number [facility] [address] [place] [address], [place] [phone] * (ABNORMAL) Comprehensive metabolic panel (01/08/2025 3:39 PM EDT) [facility] Sodium 141 133 - 145 mmol/L LAB CHEMISTRY METHOD 01/08/2025 7:[address] [facility] Potassium 3.6 3.5 - 5.5 mmol/L LAB CHEMISTRY METHOD 01/08/2025 7:17 PM T [facility] Chloride 105 96 - 110 mmol/L LAB CHEMISTRY METHOD 01/08/2025 7:[address] [facility] CO2 27 21 - 32 mmol/L LAB CHEMISTRY METHOD 01/08/2025 7:17 PM T [facility] Anion Gap 9 3 - 11 LAB CHEMISTRY METHOD 01/08/2025 7:[address] [facility] Glucose 169(H) 70 - 100 mg/dL LAB CHEMISTRY METHOD 01/08/2025 7:17 PM T [facility] BUN 15 5 - 25 mg/dL LAB CHEMISTRY METHOD 01/08/2025 7:[address] [facility] Creatinine 0.90 0.70 - 1.30 mg/dL LAB CHEMISTRY METHOD 01/08/2025 7:[address] [facility] eGFR 98 >=60 mL/min/1. 73m2 LAB CHEMISTRY METHOD 01/08/2025 7:[address] [facility] Comment:Calculation based on the Chronic Kidney Disease Epidemiology Collaboration (CKD-EPI) equation refit without adjustment for race. BUN/Creatinine Ratio 16.7 LAB CHEMISTRY METHOD 01/08/2025 7:[address] [facility] Calcium 8.6 8.5 - 10.5 mg/dL LAB CHEMISTRY METHOD 01/08/2025 7:[address] [facility] AST (SGOT) 25 10 - 42 unit/L LAB CHEMISTRY METHOD 01/08/2025 7:[address] [facility] ALT (SGPT) 22 10 - 60 unit/L LAB CHEMISTRY METHOD 01/08/2025 7:[address] [facility] Alkaline Phosphatase 143(H) 42 - 121 unit/L LAB CHEMISTRY METHOD 01/08/2025 7:[address] [facility] Total Protein 6.7 6.0 - 8.0 g/dL LAB CHEMISTRY METHOD 01/08/2025 7:[address] [facility] Albumin 3.5 3.2 - 5.0 g/dL LAB CHEMISTRY METHOD 01/08/2025 7:[address] [facility] Total Bilirubin 0.4 0.0 - 1.4 mg/dL LAB CHEMISTRY METHOD 01/08/2025 7:[address] [facility] Blood Venous blood specimen / Unknown Venipuncture / Unknown 01/08/2025 3:39 PM EDT 01/08/2025 3:39 PM EDT Grace Donis DO LAB BLOOD ORDERABLES Final Res ult [facility] [address] [place] [address], * Poc Rapid PFOP-[id number], MOLECULAR (12/24/2024 4:22 PM EDT) COVID-19/SARS- COV-2 Rapid POC Negative Negative Swab Nasopharyngeal structure / Unknown 12/24/2024 4:22 PM EDT Raymundo NAM POINT OF CARE TEST ENTER/E DIT ORDERABLES Final Result * Diabetes Eye Exam (08/02/2024) Provider [facility] HEALTH MAINTENANCE Final Result * COLONOSCOPY Anesthesia - MAC; [facility] ENDOSCOPY (06/17/2024 8:01 AM EST) Anatomical Region Laterality Modality Endoscopy 06/17/2024 7:35 AM EST Impressions 06/17/2024 7:55 AM EST - One 10 mm polyp in the cecum, removed piecemeal using a cold snare. Resected and retrieved. - Two 7 to 8 mm polyps at the splenic flexure, removed with a cold snare. Resected and retrieved. - The examination was otherwise normal on direct and retroflexion views. Recommendation: - Await pathology results. - Repeat colonoscopy in 3 years for surveillance. Narrative 06/17/2024 7:55 AM EST [facility] GI Patient Name: Katia Cuello Procedure Date: 06/17/2024 7:35 AM Date of : 1965 Age: 58 Room: ROOM 15 Gender: Male Note Status: Finalized Attending MD: Curly Fam MD, Procedure Date No Time: 06/17/2024 Procedure: Colonoscopy Indications: High risk colon cancer surveillance: Personal history of colonic polyps Providers: Curly Fam MD Referring MD: Curly Fam MD Medicines: Propofol per Anesthesia Complications: No immediate complications. Estimated Blood Loss: Estimated blood loss was minimal. Procedure: Pre-Anesthesia Assessment: - ASA Grade Assessment: III - A patient with severe systemic disease. After I obtained informed consent, the scope was passed under direct vision. Throughout the procedure, the patient's blood pressure, pulse, and oxygen saturations were monitored continuously.The Olympus Colonoscope was introduced through the anus and advanced to the cecum, identified by appendiceal orifice and ileocecal valve. The colonoscopy was performed without difficulty. The patient tolerated the procedure well. The quality of the bowel preparation was adequate. Findings: The perianal and digital rectal examinations were normal. A 10 mm polyp was found in the cecum. The polyp was flat. The polyp was removed with a piecemeal technique using a cold snare. Resection and retrieval were complete. Two sessile polyps were found in the splenic flexure. The polyps were 7 to 8 mm in size. These polyps were removed with a cold snare. Resection and retrieval were complete. The exam was otherwise without abnormality on direct and retroflexion views. Procedure Code(s): --- Professional --- 83238, Colonoscopy, flexible; with removal of tumor(s), polyp(s), or other lesion(s) by snare technique Diagnosis Code(s): --- Professional --- Z86.010, Personal history of colonic polyps D12.0, Benign neoplasm of cecum D12.3, Benign neoplasm of transverse colon (hepatic flexure or splenic flexure) CPT copyright 2020 [employer]. All rights reserved. The codes documented in this report are preliminary and upon deputy sheriff/investigator review may be revised to meet current compliance requirements. Curly Fam MD 06/17/2024 7:55:29 AM This report has been signed electronically.Curly Fam MD Number of Addenda: 0 Note Initiated On: 06/17/2024 7:35 AM Scope In: Scope Out: Endoscopy Department at [facility] - [address] [place] [id number] Procedure Note Curly Fam MD - 06/17/2024 [facility] GI Patient Name: Katia Cuello Procedure Date: 06/17/2024 7:35 AM Date of : 1965 Age: 58 Room: ROOM 15 Gender: Male Note Status: Finalized Attending MD: Curly Fam MD, Procedure Date No Time: 06/17/2024 Procedure: Colonoscopy Indications: High risk colon cancer surveillance: Personalhistory of colonic polyps Providers: Curly Fam MD Referring MD: Curly Fam MD Medicines: Propofol per Anesthesia Complications: No immediate complications. Estimated Blood Loss: Estimated blood loss was minimal. Procedure: Pre-Anesthesia Assessment: - ASA Grade Assessment: III - A patient with severe systemic disease. After I obtained informed consent, the scope was passed under direct vision. Throughout theprocedure, the patient's blood pressure, pulse, and oxygen saturations were monitored continuously.The Olympus Colonoscope was introduced through the anus and advanced to the cecum, identified by appendiceal orifice and ileocecal valve. The colonoscopy was performed without difficulty. The patient tolerated the procedure well. The quality of the bowel preparation was adequate. Findings: The perianal and digital rectal examinations were normal. A 10 mm polyp was found in the cecum. The polyp was flat. The polyp was removed with a piecemealtechnique using a cold snare. Resection and retrieval were complete. Two sessile polyps were found in the splenicflexure. The polyps were 7 to 8 mm in size. These polypswere removed with a cold snare. Resection and retrieval were complete. The exam was otherwise without abnormality ondirect and retroflexion views. Procedure Code(s): --- Professional --- 09599, Colonoscopy, flexible; with removal of tumor(s), polyp(s), or other lesion(s) by snare technique Diagnosis Code(s): --- Professional --- Z86.010, Personal history of colonic polyps D12.0, Benign neoplasm of cecum D12.3, Benign neoplasm of transverse colon (hepatic flexure or splenic flexure) CPT copyright 2020 [employer]. All rights reserved. The codes documented in this report are preliminary and upon deputy sheriff/investigator reviewmay be revised to meet current compliance requirements. Curly Fam MD 06/17/2024 7:55:29 AM This report has been signed electronically.Curly Fam MD Number of Addenda: 0 Note Initiated On: 06/17/2024 7:35 AM Scope In: Scope Out: Endoscopy Department at [facility] - [address] [place] [phone] IMPRESSION: - One 10 mm polyp in the cecum, removed piecemeal using a cold snare. Resected and retrieved. - Two 7 to 8 mm polyps at the splenic flexure,removed with a cold snare. Resected and retrieved. - The examination was otherwise normal on directand retroflexion views. Recommendation: - Await pathology results. - Repeat colonoscopy in 3 years for surveillance. Curly Fam MD GI~PROCEDURE ORDERABLES Jared jamarcus Result - Final * (ABNORMAL) Lipid panel (05/12/2022) [facility] LDL/HDL Ratio 4 0 - 4 Triglycerides 110 0 - 150 mg/dL Cholesterol 139 0 - 200 mg/dL HDL 32(A) >=40 mg/dL LDL Cholesterol 85 0 - 100 mg/dL Blood Venous blood specimen / Unknown Result [facility] Provider LAB BLOOD ORDERABLES Doreen l Result * Hepatitis C Screening (11/08/2021) [facility] Hepatitis C Screening abstracted Result [facility] Provider HEALTH MAINTENANCE Final Result * Urine Albumin Creatinine Ratio (08/02/2021) [facility] Urine Albumin Creatinine Ratio abstracted Result [facility] Provider HEALTH MAINTENANCE Final Result from Last 3 Months or Most Recently Relevant to Health Maintenance Insurance [facility]) Care Teams Physical Geographer Relationship Specialty Start Date End Date Grace Donis DO [address] [place] [id number] PCP - General 04/26/24
== END 2025-02-04 12:53 | disposition home or self-care (01) ==
LOC: HO.HCS 11:56
PROVIDERS: Visit Provider Internal Medicine
DX: I25.10 Atherosclerotic heart disease of native coronary artery without angina pectoris (principal); Z78.9 Other specified health status; G47.33 Obstructive sleep apnea (adult) (pediatric)
CPT/HCPCS: 99214

== ENCOUNTER 2025-03-17 14:40 | Outpatient (AMB) | payer BC, SELFPAY ==
[2023-07-06 13:38] VITALS: BP 124/54; BP 124/68; BP 130/64; BMI 36.3
[2025-03-17 14:54] VITALS: BP 128/68; PULSE 72; BMI 38.6
--- NOTE | 2025-03-17 14:54 | A.OFFVIS_ITS ---
Vital Signs 03/17/25 14:54 Height 6 ft Weight 284 lb 6.341 oz BMI 38.6 BP 128/68 Blood Pressure Location Lt brachial Position Sitting Pulse 72 Pulse Source Pulse Oximeter Intake Visit Reasons: f/u chest pain and high bp Allergies codeine Allergy (Unknown, Verified 08/03/23 13:41) unknown mint Allergy (Unknown, Verified 08/03/23 13:41) unknown amoxicillin (From Augmentin) Allergy (Verified 08/03/23 13:41) Unknown clavulanic acid (From Augmentin) Allergy (Verified 08/03/23 13:41) Unknown Medication List - Last Reconciled 03/17/25 by Andrea Hernandez MD alprazolam 1 mg PO BID PRN aspirin 81 mg PO DAILY atorvastatin 40 mg PO BEDTIME ipratropium-albuterol 0.5 mg-3 mg(2.5 mg base)/3 mL 3 mL inhalation Q6H PRN levothyroxine (Synthroid) 75 mcg PO DAILY metoprolol succinate ER 50 mg PO paroxetine HCl ER 25 mg PO DAILY HPI Comments Details: Delta returns for follow-up regarding coronary disease. He has got a background of COPD. In 2022, he was admitted with chest pain and had low-grade troponin leak. Treated as NSTEMI. Underwent cardiac catheterization and LAD stenting. He has mostly been doing well, but recently noticed a few episodes of chest tightness with and without activity. Concurrently, he noticed that his blood pressure was higher than usual. Then he went up on the beta-blockers himself. After that, blood pressure got better and also the chest tightness resolved completely. Otherwise, there is a history of statin intolerance with aches and pains. Then he was put on Repatha. Then he thought he was getting tired because of Repatha and has not taken it. However, I am not entirely clear if it is all medication related or not. There was also concern that if his cholesterol level was too low and if it is causing an issue. He was reassured at that time. Currently, med list has statins but not Repatha. [facility] Medical History (Updated 02/04/25 @ 13:42 by Andrea Hernandez MD) Prostate cancer MAGALIS on CPAP Smoking Hypothyroidism Depression GERD (gastroesophageal reflux disease) Surgical History (Updated 02/04/25 @ 13:40 by Andrea Hernandez MD) History of prostatectomy Family History Father Myocardial infarction Social History (Updated 08/06/24 @ 12:48 by Andrea Hernandez MD) Household Members: Significant Other and Family Housing: House Do you presently have visiting nurse or other home services: No Alcohol intake: never Patient Tobacco Use Status: Former Tobacco user Tobacco use type: Cigarette Cigarette Packs Per Day: 0 Cigarettes Per Day: 3 Years Smoked: 10 service: No Review of Systems Const Denies weakness ENT Denies dizziness Card Denies chest pain, Denies chest pain with activity, Denies syncope, Denies rapid heart rate, Denies pedal edema, Denies edema, Denies leg edema, Denies lightheadedness, Denies palpitations, Denies dyspnea, Denies dyspnea on exertion and Denies orthopnea Resp Denies cough, Denies dyspnea and Denies dyspnea on exertion GI Denies hematochezia and Denies change in stool character Musc Denies abnormal gait, Denies muscle cramps, Denies muscle weakness, Denies numbness, Denies radiating pain into limb and Denies tingling Neuro Denies abnormal gait, Denies dizziness, Denies syncope, Denies numbness, Denies tingling and Denies weakness Endo Denies palpitations Physical Exam Vital Signs: Last Vital Signs Pulse 72 03/17/25 14:54 BP 128/68 03/17/25 14:54 BMI result Body Mass Index 38.6 Const General: comfortable and no acute distress Orientation/consciousness: patient oriented x3 HEENT Other: Unremarkable Head: Yes normal to inspection Neck Neck: Yes normal visual inspection Chest Chest palpation & inspection: normal inspection of the chest Resp Auscultation: clear to auscultation bilaterally Cardio Palpation: normal PMI Heart sounds: S1 normal heart sound present, S2 normal heart sound present, no gallops, no murmurs and no rubs GI Palpation (GI): Soft to palpation Back/Spine/Pelvis Other: unremarkable Skin General skin exam: no rashes or lesions noted Neuro General: patient oriented x3 Extrem General: Yes normal to inspection Psych Mental Status: mental status grossly normal Assessment & Plan Assessment & Plan (1) Atherosclerotic cardiovascular disease: Code(s): I25.10 - Atherosclerotic heart disease of [place] coronary artery without angina pectoris Category: Medical (2) Statin intolerance: Code(s): Z78.9 - Other specified health status Category: Medical (3) MAGALIS on CPAP: Code(s): G47.33 - Obstructive sleep apnea (adult) (pediatric) Category: Medical Plan Cardiac catheterization data reviewed. Status post PCI to proximal LAD. With regard to the recent episodes of chest tightness, not entirely clear if it is cardiac or not. EKG from last week shows sinus rhythm at 72/Min right bundle-branch block pattern. Cannot exclude old inferior infarct. Overall, grossly unchanged from prior. We will get a pharmacological stress perfusion imaging study for further evaluation. He states he will not be able to exercise on the treadmill. For meds, continue aspirin, beta-blockers. Has had muscle aches with statins but still on small dose. Previously, stopped Repatha because of tiredness extra. With regard to the cholesterol panel, LDL is only 9 mg/dL and triglycerides 96 mg/dL. Not clear if he was actually on Repatha at that time. At some point, we will need to repeat this. Follow up after the stress test. Discussion Notes I discussed the plan to conduct a stress test to evaluate the patient's chest pain, considering his history of stent placement. We considered a chemical stress test due to the patient's limited ability to walk. The patient was advised to continue metoprolol and to monitor blood pressure regularly. We reviewed the patient's current medication regimen for hyperlipidemia and discussed the discontinuation of Repatha due to adverse effects. Patient was informed and verbally consented to the use of an ambient scribe for clinic note documentation during this visit. Orders: Orders CA lexiscan stress w mark Today R07.9 - Chest pain, unspecified NM cardiolite stress test Today R07.9 - Chest pain, unspecified Patient Instructions: - Continue taking Metoprolol as prescribed and monitor blood pressure regularly. - Use CPAP machine consistently at night for sleep apnea management. - Follow up for the scheduled stress test to evaluate chest pain. - Report any new or worsening symptoms to the healthcare provider. Coding Level of Care Code Est Pt Level 4 (44019) Complex EM visit Add On G2211 Diagnoses Atherosclerotic cardiovascular disease I25.10 Statin intolerance Z78.9 MAGALIS on CPAP G47.33
--- OUTSIDE RECORDS SUMMARY | 2025-03-17 16:25 | XMS_ITS | Continuity of Care Document ---
Author Organization [facility] Address [address] [place], [place] Phone [phone] Care Team Providers Care Network Intelligence Analyst Name Role Phone Lavelle Helton MD Care Team Information Finger Lift Operator Unavailable MARLEEN HENDERSON M.D. Care Team Information [...] Social History Type Date Description Comments Sex Male Sex Unknown Allergies and adverse reactions Active Allergies Criticality Reaction Severity Comments Date Augmentin Unable to assess criticality 09/28/2017 Repatha Unable to assess criticality severe fatigue 01/30/2025 Medications Active Medications SIG Qnty Indications Order ing Provider Date Metformin HCL NC260dw Tablets ER 24HR 1 tab by mouth twice a day 180tabs R73.03 Marleen Henderson M.D. 01/31/2025 Jixamtkm2ot/0.5ML Solution Auto-Inject administer 5 mg under the skin 1 time a week(off awaiting PA) 6ml Marleen Henderson M.D. 08/12/2024 BD Pen Needle/Mini/Ultra-Fin e/31G X 5mm31G X 5 mm Misc use 1 needle a day 30units E88.81 Marleen Henderson M.D. 05/06/2022 Qhqwwfn91ki Chewtabs take 1 tablet by mouth every day 90units Marleen Henderson M.D. 11/14/2018 Levothyroxine Twcsdo96joj Tablets Take 1 Tablet by mouth Daily 90tabs Marleen Hednerson M.D. 07/05/2018 Metoprolol Succinate ER50mg Tablets ER 24HR TK 1 T PO qd->1/2 a day(07/2022)->1/d()->1/2(2023) Unknown Testosterone Jcjhdlslb729yp/ml Solution 0.5 cubic centimeters injection every week 2ml Unknown Licorice for sugar Unknown Berberine Unknown Fish Oil Unknown Vit D 2000iu/d Unknown Vitamin [id number] Tablets 1 by mouth every day Unknown Jhinabhzi5rx Tablets Take 1 Tablet By Mouth Daily Unknown Metamucil off lately Unknown 0 Combivent Sbfitska58-624jku/Act Aerosol Unknown Paroxetine HCL ER25mg Tablets ER 24HR Unknown Atorvastatin Yoesvgg40qc Tablets 1/2 by mouth every day 90tabs Unknown Xamnopdtpc6ww Tablets as needed Unknown History Medications Zepbound2.5mg/0.5ML Solution Auto-Inject inject 2.5mg subcutaneously once a week 2ml Marleen Henderson M.D. 07/23/2024 - 08/12/2024 Uqzepefp5jl/0.5ML Solution Auto-Inject administer 5 mg under the skin 1 time a week 2ml Marleen Henderson M.D. 03/27/2024 - 07/23/2024 Zepbound2.5mg/0.5ML Solution Auto-Inject inject 2.5mg subcutaneously once a week 2ml Marleen Henderson M.D. 03/21/2024 - 03/27/2024 Wdycplzn2de/0.5ML Solution Auto-Inject administer 5 mg under the skin 1 time a week 2ml Marleen Henderson M.D. 03/06/2024 - 03/21/2024 Zepbound2.5mg/0.5ML Solution Auto-Inject inject 2.5mg subcutaneously once a week 2ml Marleen Henderson M.D. 02/14/2024 - 03/06/2024 Mounjaro2.5mg/0.5ML Solution Pen-Inject inject 2.5mg subcutaneously q1week 2ml Marleen Henderson M.D. 02/12/2024 - 02/14/2024 Czjkbcoao93ui Tablets 1 tab by mouth every day 90tabs E88.8 10 Marleen Henderson M.D. 09/29/2023 - 09/29/2023 Hdkamigzv53xs Tablets 1 tab by mouth every day 90tabs Marleen Henderson M.D. 05/18/2023 - 04/23/2024 Vitamin Y0654lpo (5000 Ut) Capsules 1 tab by mouth every day 90caps E55.9 Marleen Henderson M.D. 09/21/2022 - 05/17/2023 Clonidine HCL0.1mg Tablets take 1 tablet by mouth at bedtime as directed 90tabs I10 Marleen Henderson M.D. 08/12/2022 - 05/17/2023 Jjlnctv05zu/3ML Solution Pen-Inject inject 0.6 cubic centimeters injection subcutaneous every day 15ml E88.8 1 Marleen Henderson M.D. 05/06/2022 - 08/12/2022 Testosterone Wuzebslhu397vq/ml Solution inject 0.3ml(60mg) Im every week 10ml E29.1 Marleen Henderson M.D. 02/24/2022 - 01/11/2023 BD TB Syringe 25GX5/8 Use One syringe Every Week 10units Marleen Henderson M.D. 02/24/2022 - 05/17/2023 Pchxacytzf92pa Tablets 1 tab by mouth every day 90tabs I10 Marleen Henderson M.D. 02/04/2022 - 05/17/2023 Blhzkvymaf8md Tablets 1 by mouth every day 90tabs [...] 1 Marleen Henderson M.D. 02/12/2021 - 04/28/2021 Jotfatwli9va/24HR Patches 24HR apply 1 patch daily 30units E29.1 Marleen Henderson M.D. 02/12/2021 - 07/08/2021 Testosterone Imhpcedll849sc/ml Solution 0.5 cubic centimeters injection every week 2ml E29.1 Marleen Henderson M.D. 11/13/2020 - 02/12/2021 BD TB Syringe 25GX5/8 Use One Every Week 4units Marleen Henderson M.D. 11/13/2020 - 02/12/2021 Ozempic (1 MG/Dose)2mg/1.5ML Solution Pen-Inject 1mg subcutaneously every week 9ml E88.8 1 Marleen Henderson M.D. 11/13/2020 - 02/03/2021 Xravavyab0hu/24HR Patches 24HR apply 1 patch daily 30units Marleen Henderson M.D. 09/14/2020 - 11/13/2020 Ozempic (0.25 Or 0.5 MG/Dose)2mg/1.5ML Solution Pen-Inject 0.5 mg sub cutaneously every week 1.500ml E88.8 1 Marleen Henderson M.D. 08/14/2020 - 11/13/2020 Sqapiyhkj4oc/24HR Patches 24HR apply 2 patch daily 60units E29.1 Marleen Henderson M.D. 05/01/2020 - 08/14/2020 Ozempic (0.25 Or 0.5 MG/Dose)2mg/1.5ML Solution Pen-Inject 0.25 mg sub cutaneously every week z8peeop then 0.5/week as tolerated 1.500ml E88.8 1 Marleen Henderson M.D. 05/01/2020 - 08/14/2020 BD TB Syringe 25GX5/8 Use One Every Week 15units Marleen Henderson M.D. 10/02/2019 - 08/14/2020 Metformin HCL BW013fv Tablets ER 24HR 1 by mouth every day 90tabs Marleen Henderson M.D. 08/19/2019 - 04/22/2020 Testosterone Umdtmjpia668xm/ml Solution 0.3 cubic centimeters injection every week 2ml E29.1 Marleen Henderson M.D. 08/16/2018 - 08/14/2020 1ML Syringe/Needle Slip Tip 25GX5/8 Sub-Q25G X 5/8 1 ML Misc use one every 1 weeks 15units E29.1 Marleen Henderson M.D. 08/16/2018 - 02/03/2021 Levothyroxine Asoccj34qei Tablets Take 1 Tablet Daily 90tabs Marleen Henderson M.D. 06/04/2018 - 07/05/2018 Usuvytgf61.5mg/2.5GM (1.62%) Gel 1 apply packets to skin daily as directed 90pkt E29.1 Marleen Henderson M.D. 05/25/2018 - 05/28/2018 Tvlgnqfk01.25mg/1.25GM (1.62%) Gel place 2 packets onto skin a day(one month supply=2 boxes of 30pkt each) 112.5gm E29.1 Marleen Henderson M.D. 05/22/2018 - 07/05/2018 Trulicity0.75mg/0.5ML Solution Pen-Inject 0.75 mg subcutaneous every week 2ml Marleen Henderson M.D. 02/16/2018 - 07/05/2018 BD Pen Needle/Mini/Ultrafine/31G X 3/16 31G X 5 mm Misc 1 unit every day 100units Marleen Henderson M.D. 12/07/2017 - 07/06/2018 [facility] Zgjiruj80ao Chewtabs Take 1 Tablet By Mouth Every Day 30units Marleen Henderson M.D. 11/24/2017 - 11/14/2018 Yboswvi66rw/3ML Solution Pen-Inject 1 injection every day. E66.8 4units E88.8 1 Marleen Henderson M.D. 11/23/2017 - 02/09/2018 R73.03 E66.8 Metformin HCL VA267yc Tablets ER 24HR 1 tab by mouth every day 90tabs E88.81 Marleen Henderson M.D. 09/28/2017 - 11/20/2017 Paroxetine HCL ER25mg Tablets ER 24HR 1/d Unknown - 05/06/2022 Qxaswkkbuhpa272wr Tablets 2 Tablets Today, Then 1 Tablet Daily Unknown - 09/28/2017 Paroxetine HCL ER12.5mg Tablets ER 24HR 1/d Unknown - 08/14/2020 Bupropion Hydrochloride ER (XL)150mg Tablets ER 24HR 1/d with 191=089/d Unknown - 05/01/2020 Levothyroxine Kfvsgv81est Tablets 1 by mouth every day Unknown - 06/04/2018 Testosterone Jiynizhis272mj/ml Solution Unknown - 07/05/2018 Acwttjd09sl Chewtabs Take 1 Tablet By Mouth Every Day 30units Marleen Henderson M.D. - 11/24/2017 LamictalTablets Unknown - 12/25/2017 Paroxetine CFK94pw Tablets TK 1 T PO qd Unknown - 09/28/2017 Uidbibrjeb79iq Tablets TK 2 TS PO D For 3 Days Unknown - 09/28/2017 Repatha Glbdlhmtb351lf/ml Solution Auto-Inject Unknown - 01/30/2025 Bupropion Hydrochloride ER (XL)150mg Tablets ER 24HR 2/d Unknown - 02/12/2021 Atorvastatin Vusuqnn06bh Tablets 1 by mouth every day 90tabs Unknown - 05/17/2023 Paroxetine HCL ER37.5mg Tablets ER 24HR 1/d Unknown - 05/17/2023 Rosafpba949kb Suspension Rec Unknown - 01/30/2025 Epjfwiqeag257vb Tablets Unknown - 01/30/2025 Vtljsavl67iw Tablets Unknown - 04/05/2024 Metoprolol Succinate ER50mg Tablets ER 24HR Unknown - 05/17/2023 Joxqnbnpm113-3.5mcg/Ac t Aerosol Unknown - 01/30/2025 Qwjuegiudw79td Tablets Take 1 Tablet By Mouth Every Day Unknown - 01/27/2023 Vit B12 Inections 1000mg x2 injections a week([employer]) Unknown - 01/30/255 Uxuhmdblcrek84bp Capsules Unknown - 09/28/2017 Bupropion HCL ER (XL)300mg Tablets ER 24HR 1/d with 150-450/d Unknown - 05/01/2020 Escitalopram Mhhpdbe9qe Tablets Unknown - 09/28/2017 Nitroglycerin0.4mg Tablets Noemi Finley MD - 09/28/2017 Testosterone Ppnttqghc992xn/ml Solution Unknown - 09/28/2017 Levothyroxine Nkerlj40sau Tablets 1 take tablet once daily 90tabs Marleen Henderson M.D. - 02/09/2018 Bdzmpodqwrh28jz Tablets Unknown - 09/28/2017 Doxycycline Caeozlo091za Capsules Unknown - 09/28/2017 Phenazopyridine MNR090mf Tablets Unknown - 09/28/2017 Wdyhergyptg816lw Tablets TK 1 T PO bid Unknown - 09/28/2017 Sulfacetamide Ojzphv27% Solution Unknown - 09/28/2017 Paroxetine NMA69ex Tablets Take 1 Tablet By Mouth Every Day Unknown - 09/28/2017 Ketorolac Ooolsprtukaj86op Tablets Unknown - 09/28/2017 Paroxetine PME94hg Tablets Unknown - 09/28/2017 Ventolin NWT204(90Base) mcg/Act Aerosol Inl 2 Puffs PO Q 4 H PRF Wheezing Unknown - 09/28/2017 Paroxetine QYJ64xj Tablets Unknown - 09/28/2017 Bupropion HCL ER (SR)100mg Tablets ER 12HR Unknown - 11/20/2017 Trazodone YDQ84te Tablets Unknown - 09/28/2017 Isosorbide Dinitrate ER40mg Tablets ER Take 1 Tablet Once A Day Unknown - 09/28/[address] Take One Capsule By Mouth Every Day Unknown - 09/28/2017 Naltrexone WGH11ov Tablets Once A Day Unknown - 09/28/2017 Acamprosate Zvojgqx323nh Table[address] DR TK 2 TS PO tid Unknown - 09/28/2017
--- OUTSIDE RECORDS SUMMARY | 2025-03-17 16:25 | XMS_ITS | Encounter Summary ---
Author Organization [facility] Address [address] [place] [address] Care Team Providers Care Program Medical Director Name Role Phone Grace Donis Primary Care Provider [phone] Encounter Details Date Type Department Care Team (Late st Contact Info) Description 07/31/2024 Lab Requisition [facility] - Main Lab [address] [place] [address] Stephan Bear MD [address] [facility] [address] [place] [id number] Elevated prostate specific antigen (PSA) Social History Tobacco Use Types Packs/Day Years Used Date Smoking Tobacco: Former Cigarettes 0.3 2.5 0 07/24/2020 - 02/03/2023 Smokeless Tobacco: Never Alcohol Use Standard Drinks/Week Comments Not Currently 0 (1 standard drink = 0.6 oz pur e alcohol) Interpersonal Safety Answer Date Record ed Physical Abuse 06/17/2024 Verbal Abuse 06/17/2024 Sex and Gender Information Value Date Recorded Sex Assigned at Male 06/11/2024 9:43 AM EST Legal Sex Male 10:08 AM EST Gender Identity Male 06/11/2024 9:43 AM EST Sexual Orientation Straight 06/11/2024 9: 43 AM EST documented as of this encounter Plan of Treatment Upcoming Encounters Date Type Department Care Team (Late st Contact Info) Description 05/29/2025 8:00 AM EST Nutrition Bariatric Surgery - [place] [address] [facility] [address] [place] [address] AleksandrMelonyMoraima Garcia, RD [address] [address] documented as of this encounter Procedures Procedure Name Priority Date/Time Associated Diagnosis Comments AP OUTSIDE CONSULT Routine 07/29/2024 Elevated prostate specific antigen (PSA) documented in this encounter Results * Anatomic pathology outside consult (07/29/2024) Final Diagnosis A. Prostate, Left [place] (Core Biopsy): - Benign prostate tissue. B. Prostate, Left Lateral [place] (Core Biopsy): -PROSTATIC ACINAR ADENOCARCINOMA CONVENTIONAL (USUAL) TYPE -Pa Score: (3+3=6) , Grade Group 1 Total Number of Cores: 1 Number of Positive Cores: 1 Percent of Prostatic Tissue Continuously Involved by Tumor: 5% C. Prostate, Left Middle Middle (Core Biopsy): - Benign prostate tissue. D. Prostate, Left Lateral Middle (Core Biopsy): -PROSTATIC ACINAR ADENOCARCINOMA CONVENTIONAL (USUAL) TYPE -Pa Score: (3+3=6) , Grade Group 1 Total Number of Cores: 1 Number of Positive Cores: 1 Percent of Prostatic Tissue Continuously Involved by Tumor: 50% E. Prostate, Left Middle Base (Core Biopsy): - Benign prostate tissue. F. Prostate, Left Lateral Base (Core Biopsy): - Benign prostate tissue. G. Prostate, Right [place] (Core Biopsy): -PROSTATIC ACINAR ADENOCARCINOMA CONVENTIONAL (USUAL) TYPE -[place] Score: (3+3=6) , Grade Group 1 Total Number of Cores: 1 Number of Positive Cores: 1 Percent of Prostatic Tissue Discontinuously Involved by Tumor: 60% H. Prostate, Right Lateral [place] (Core Biopsy): - Benign prostate tissue. I. Prostate, Right Middle Middle (Core Biopsy): - Benign prostate tissue. J. Prostate, Right Lateral Middle (Core Biopsy): -PROSTATIC ACINAR ADENOCARCINOMA CONVENTIONAL (USUAL) TYPE -Pa Score: (4+3=7), Grade Group 3 -Percentage Pattern: 4: 90% Total Number of Cores: 1 Number of Positive Cores: 1 Percent of Prostatic Tissue Continuously Involved by Tumor: 75% K. Prostate, Right Middle Base (Core Biopsy): -PROSTATIC ACINAR ADENOCARCINOMA CONVENTIONAL (USUAL) TYPE -Pa Score: (3+3=6) , Grade Group 1 Total Number of Cores: 1 Number of Positive Cores: 1 Percent of Prostatic Tissue Continuously Involved by Tumor: 0, 5% L. Prostate, Right Lateral Base (Core Biopsy): - Benign prostate tissue. M. Prostate, Right Peripheral Zone Lesion (Core Biopsy): -PROSTATIC ACINAR ADENOCARCINOMA CONVENTIONAL (USUAL) TYPE -Pa Score: (4+3=7), Grade Group 3 -Percentage Pattern: 4: 75% Total Number of Cores: 3 (fragmented) Number of Positive Cores: 3 (fragmented) Percent of Prostatic Tissue Continuously Involved by Tumor: 30% of multiple fragmented cores 08/08/2024 12:18 PM [facility] Comment E, F, G, H) PIN4 immunohistology supports the morphological diagnosis. PIN4 performed at [facility], [address], [place] [address], CLIA # [id number] 08/08/2024 12:18 PM [facility] Clinical Information Elevated PSA Last PSA total = 4.9 (2023) [id number] 08/08/2024 12:18 PM [facility] Gross Description A. Prostate, Left Mid [place] Biopsy: Received, properly labeled, are two H and E stained slides and two unstained slides. B. Prostate, Left Lat [place] Biopsy: Received, properly labeled, are two H and E stained slides and two unstained slides. C. Prostate, Left Mid Mid Biopsy: Received, properly labeled, are two H and E stained slides and two unstained slides. D. Prostate, Left Lat Mid Biopsy: Received, properly labeled, are two H and E stained slides and two unstained slides. E. Prostate, Left Mid Base Biopsy: Received, properly labeled, are two H and E stained slides and two unstained slides. F. Prostate, Left Lat Base Biopsy: Received, properly labeled, are two H and E stained slides and two unstained slides. G. Prostate, Right Mid [place] Biopsy: Received, properly labeled, are two H and E stained slides and two unstained slides. H. Prostate, Right Lat [place] Biopsy: Received, properly labeled, are two H and E stained slides and two unstained slides. I. Prostate, Right Mid Mid Biopsy: Received, properly labeled, are two H and E stained slides and two unstained slides. J. Prostate, Right Lat Mid Biopsy: Received, properly labeled, are two H and E stained slides and two unstained slides. K. Prostate, Right Mid Base Biopsy: Received, properly labeled, are two H and E stained slides and two unstained slides. L. Prostate, Right Lat Base Biopsy: Received, properly labeled, are two H and E stained slides and two unstained slides. M. Prostate, Right Peripheral Zone Lesion Biopsy: Received, properly labeled, are two H and E stained slides and two unstained slides. /al 08/08/2024 12:18 PM EST [facility] Disclaimer Unless otherwise specified, all tissue is 10% NB formalin fixed and paraffin embedded. Technical pathology services provided by [facility] at [address] [place] [address] [address], [place] [address] (CLIA #[id number]/Hortensia Lopez MD, Data Officer) 08/08/2024 12:18 PM EST [facility] Tissue Prostate / Unknown 07/29/20242024 8:40 AM EST Tissue specimen (specimen) Prostate / Unknown 07/29/2024 07/31/2024 8: 40 AM EST Tissue specimen (specimen) Prostate / Unknown 07/29/2024 07/31/2024 8: 40 AM EST Tissue specimen (specimen) Prostate / Unknown 07/29/2024 07/31/2024 8: 40 AM EST Tissue specimen (specimen) Prostate / Unknown 07/29/2024 07/31/2024 8: 40 AM EST Tissue specimen (specimen) Prostate / Unknown 07/29/2024 07/31/2024 8: 40 AM EST Tissue specimen (specimen) Prostate / Unknown 07/29/2024 07/31/2024 8: 40 AM EST Tissue specimen (specimen) Prostate / Unknown 07/29/2024 07/31/2024 8: 40 AM EST Tissue specimen (specimen) Prostate / Unknown 07/29/2024 07/31/2024 8: 40 AM EST Tissue specimen (specimen) Prostate / Unknown 07/29/2024 07/31/2024 8: 40 AM EST Tissue specimen (specimen) Prostate / Unknown 07/29/2024 07/31/2024 8: 40 AM EST Tissue specimen (specimen) Prostate / Unknown 07/29/2024 07/31/2024 8: 40 AM EST Tissue specimen (specimen) Prostate / Unknown 07/29/2024 07/31/2024 8: 40 AM EST Stephan Bear MD LAB PATHOLOGY ORDERABLES Final Result [facility] [address] [place] [address], documented in this encounter Visit Diagnoses Diagnosis Elevated prostate specific antigen (PSA) documented in this encounter Additional Health Concerns Infection Onset Date Last Indicated Resolved Time COVID-19 08/15/2024 08/15/2024 09/14/2024 7:04 PM EST documented as of this encounter Care Teams Program Medical Director Relationship Specialty Start Date End Date Grace Donis DO [address] [facility] [place] [address] PCP - General 04/26/24 documented as of this encounter
--- OUTSIDE RECORDS SUMMARY | 2025-03-17 16:25 | XMS_ITS ---
Author Organization [facility] Address [address] [place] [address] Phone Care Team Providers Care Director Property Name Role Phone Grace Donis DO Primary Care Provider Transitional Care Management Status:Ongoing (Active) Start date:09/17/2024 Enrollment date:09/18/2024 Enrollment reason:Identified using hospital discharge data Case Team Name Relationship Phone Fariba Keys LPN Care Manager(Responsible Staf f) [phone] Continued Care and Services Coordination
--- OUTSIDE RECORDS SUMMARY | 2025-03-17 16:25 | XMS_ITS | Clinical Summary ---
Author Organization [facility] Address [address] [place] [address] Phone Care Team Providers Care Outside Plant Engineer Name Role Phone JewelsGrace Primary Care Provider [phone] Allergies Active Allergy Reactions Criticality Noted Date Comments Adhesive Tape-Silicones Hives 06/11/2024 Amoxicillin-Pot Clavulanate Itching 06/11/20 24 Codeine Itching 06/11/2024 Medications budesonide-form oteroL (SYMBICORT) 160-4.5 mcg/actuation inhaler Inhale 2 puffs by mouth. 3 Active fluticasone propion-salmete roL (ADVAIR HFA) 230-21 mcg/actuation inhaler Inhale 2 puffs by mouth. 4 03/18/20 25 Active levothyroxine (SYNTHROID, LEVOTHROID) 75 mcg tablet Take 1 tablet (75 mcg total) by mouth. Active PARoxetine CR (PAXIL-CR) 25 mg 24 hr tablet Take 1 tablet (25 mg total) by mouth 1 (one) time each day in the morning. Active ALPRAZolam (XANAX) 1 mg tablet Take 1 tablet (1 mg total) by mouth. 4 Active Repatha SureClick 140 mg/mL pen injector injection Inject 1 mL (140 mg total) under the skin every 14 (fourteen) days. 5 Active metoprolol succinate (TOPROL-XL) 50 mg 24 hr tablet TAKE 1 TABLET BY MOUTH EVERY DAY 90 tablet 1 05/22/202 5 Active fluticasone furoate (Arnuity Ellipta) 100 mcg/actuation blister with device inhaler Inhale 1 puff by mouth 1 (one) time each day. 1 each 5 12/24/19 26 Active ipratropium-alb uteroL (COMBIVENT RESPIMAT) 20-100 mcg/actuation inhaler Inhale 2 puffs by mouth every 6 (six) hours if needed for wheezing or shortness of breath. 14.7 g 5 Active atorvastatin (LIPITOR) 80 mg tablet TAKE 1 TABLET DAILY 90 tablet 1 5 Active aspirin 81 mg chewable tablet Chew 1 tablet (81 mg total) 1 (one) time each day. 30 each 2 5 04/08/20 25 Active [id number]-ep a-fish oil 600-1,000 mg capsule Take 1 capsule by mouth 2 (two) times daily morning and afternoon. 180 capsule 1 5 Active Active Problems Problem Noted Date Diagnosed Date Class 2 severe obesity with serious comorbidity and body mass index (BMI) of 37.0 to 37.9 in adult ([facility] V24, [facility] V28) 12/23/2024 NSTEMI (non-ST elevated myoc ardial infarction) ([facility] V24, [facility] V28) 01/27/2023 HLD (hyperlipidemia) 05/17/2022 Phelps's esophagus 11/01/2021 Hypogonadism in male 08/06/2021 MAGALIS on CPAP 08/06/2021 Generalized anxiety disorder 08/02/2021 Hypothyroidism 08/02/2021 Primary hypertension 08/02/2021 Encounters Date Type Department Care Team Description 02/26/2025 8:00 AM EDT Nutrition Bariatric Surgery - [place] [address] [facility] [address] [place] [address] Class 2 severe obesity with serious comorbidity and body mass index (BMI) of 37.0 to 37.9 in adult, unspecified obesity type ([facility] V24, [facility] V28) (Primary Dx) 02/19/2025 Telephone Gastroenterology - [address] [facility] [address] [facility] [address] [place] [address] Jazmin Fernandez [place] 01/28/2025 Telephone Internal Medicine - [address] [phone] Grace Donis DO 01/08/2025 3:30 PM EDT Office Visit Internal Medicine - [address] [phone] Grace Donis, Other fatigue (Primary Dx); Coronary artery disease due to lipid rich plaque; Hyperlipidemia, unspecified hyperlipidemia type; Chronic obstructive pulmonary disease, unspecified COPD type (CMS/HCC V24, CMS/HCC V28); Hypothyroidism, unspecified type 01/08/2025 Telephone Internal Medicine - [address] [phone] Grace Donis DO 12/24/2024 3:00 PM EDT Office Visit Walk-In Clinic - [address] [phone] Raymundo Walsh PA COPD exacerbation (CMS/HCC V24, CMS/HCC V28) (Primary Dx) 12/24/2024 Telephone Internal Medicine - [address] [phone] Grace Donis DO 12/24/2024 Telephone Pulmonolgy [facility] [address] [facility] [address] [place] [phone] Erendira Loera [place] 12/23/2024 10:00 AM EDT [facility] [address] [place] [phone] Adelita Moncada MD MAGALIS on CPAP (Primary Dx); Chronic obstructive pulmonary disease, unspecified COPD type (CMS/HCC V24, CMS/HCC V28); Ex-smoker; COPD with asthma (CMS/HCC V24, CMS/HCC V28) 12/23/2024 9:30 AM EDT Nutrition Bariatric Surgery - [place] [address] [facility] [address] [place] [address] Moraima Mar, PAULY Class 2 severe obesity with serious comorbidity and body mass index (BMI) of 38.0 to 38.9 in adult, unspecified obesity type (CMS/HCC V24, CMS/HCC V28) (Primary Dx) 12/23/2024 Telephone Pulmonolgy - [place] [address] [facility] [address] [place] [address] Erendira Loera MA from Last 3 Months Immunizations Name Administration [...] Date Site/Laterality Comments OTHER SURGICAL HISTORY PROCEDURE: NM INSTLJ VIA CHEST TUBE/CATH AGENT FOR PLEURODESIS TONSILLECTOMY PROCEDURE: HISTORICAL TONSILLECTOMY NASAL SEPTUM SURGERY PROCEDURE: NM SEPTOPLASTY/SUBMUCOUS RESECJ W/WO CARTILAGE GRF; COMMENT: X2 CARPAL TUNNEL RELEASE Bilateral PROCEDURE: HISTORICAL CARPAL TUNNEL REL OTHER SURGICAL HISTORY PROCEDURE: NM ANES VASECTOMY UNI/BI INCL OPEN URETHRAL PX OTHER SURGICAL HISTORY 12/2022 PROCEDURE: NM PATIENT HAS A CORONARY ARTERY STENT; COMMENT: [...] V28) DX:NSTEMI (non- ST elevated myocardial infarction) (HCC) Family History Medical History Relation Name Comments Heart attack Father decreased at 52 from [place] Other cancer Maternal Grandfather lung ca ncer? [...] care for your loved ones. For example, rn child or elderly care for an older adult? [...] - - Weight 129 kg (284 lb 6.4 oz) 02/26/2025 8:21 AM EDT Height 185.4 cm (6' 1 ) 01/08/2025 3:09 PM EDT Body Mass Index 37.52 01/08/2025 3:09 PM EDT Plan of Treatment Upcoming Encounters Date Type Department Care Team (Late st Contact Info) Description 05/29/2025 8:00 AM EST Nutrition Bariatric Surgery - [address] [phone] Moraima Zhang, RD 175 [facility] [address] [place] [address] Health Maintenance Due Date Last Done Comments Diabetes: Annual Foot Exam 1974 Zoster Vaccines (1 of 2) 12/07/1983 HIV Screening 07/03/2022 COVID-19 Vaccine (4 - 2023-2 5 season) 2024 06/30/2021, 09/29/2020, 09/08/2020 Diabetes: Annual Urine Albumin-Creatinine Ratio (uACR) 09/06/2024 08/02/2021 RSV Immunization Adult Patients (1 - Risk 60-74 years 1-dose series) 2024 Influenza Vaccine (#1) 2025 , 05/09/2020 Diabetes: Blood Sugar Contro l Test (HGBA1C) 07/15/2025 01/13/2025, 05/12/2022 Diabetes: Annual Retina Eye Exam 08/02/2025 08/02/2024 Diabetes: Annual GFR (Glomerular Filtration Rate) 01/08/2026 01/08/2025, 02/19/2024, 02/19/2024 Hypertension/CHF/CAD Annual BMP Blood Test 01/08/2026 01/08/2025, 02/19/2024, 02/19/2024 Social Influencers of Health Screening 01/08/2026 01/08/2025 Cholesterol Screening (Lipid Panel) 05/12/2027 05/12/2022 DTaP,Tdap,and Td Vaccines (2 - Td or Tdap) 03/17/2033 03/17/2023 Colorectal Cancer Screening: Colonoscopy 06/17/2034 06/17/2024 Hepatitis C Screening Completed 11/08/2021 Pneumococcal Vaccine: 50+ Years Completed 07/12/2023 Depression Screening Completed 01/08/2025 HIB Vaccines Aged Out No longer eligi [...] Procedure Name Priority Date/Time Associated Diagnosis Comments POC OCCULT BLOOD STOOL Routine 02/18/2025 10:33 AM EDT Encounter for screening fecal occult blood testing HEMOGLOBIN A1C Routine 01/13/2025 9:50 AM EDT [...] 3:39 PM EDT Other fatigue POC RAPID [id number], MOLECULAR Routine 12/24/2024 4:22 PM EDT COPD exacerbation (CMS/HCC V24, CMS/HCC V28) DIABETES EYE EXAM 08/02/2024 COLONOSCOPY Routine 06/17/2024 8:01 AM EST Personal history of colon polyps, unspecified LIPID PANEL Routine 05/12/2022 HEPATITIS C SCREENING Routine 11/08/2021 URINE ALBUMIN CREATININE RATIO Routine 08/02/2021 from Last 3 Months or Most Recently Relevant to Health Maintenance Results * POC Fecal Immunochemical Testing (FIT) Screening or Diagnostic (02/18/2025 10:33 AM EDT) Pathologist [facility] Fecal Occult Blood POC Negative Negative EXPIRATION DATE POC 10/21/25 POC Occult Blood 1 Int QC Pass? Yes Yes Stool Rectum structure / Unknown 02/18/2025 10:33 AM EDT Valdez NAM POINT OF CARE TEST ENTE R/EDIT ORDERABLES Final Result * (ABNORMAL) Alkaline phosphatase (01/13/2025 9:50 AM EDT) Pathologist [facility] Alkaline Phosphatase 128(H) 42 - 121 unit/L LAB CHEMISTRY METHOD 01/13/2025 2:40 PM EDT [facility] Blood Venous blood specimen / Unknown Venipuncture / Unknown 01/13/2025 9:50 AM EDT 01/13/2025 9:50 AM EDT us Valdez NAM LAB BLOOD ORDERABLES Fi nal Result [facility] [address] [place] [address], [place] [phone] * Hemoglobin A1c (01/13/2025 9:50 AM EDT) [facility] Hemoglobin A1C 5.8 <6.5 % LAB CHEMISTRY METHOD 01/13/2025 2:11 PM EDT [facility] Mean Bld Glu Estim. 120 mg/dL LAB CHEMISTRY METHOD 01/13/2025 2:11 PM EDT [facility] Blood Venous blood specimen / Unknown Venipuncture / Unknown 01/13/2025 9:50 AM EDT 01/13/2025 9:50 AM EDT Valdez NAM LAB BLOOD ORDERABLES Fi nal Result Performing Organization Address [facility]/ZIP Co de Phone Number [facility] [address] [place] [address], * GGT (01/13/2025 9:50 AM EDT) [facility] GGT 34 7 - 64 unit/L LAB CHEMISTRY METHOD 01/13/2025 2:38 PM EDT [facility] Blood Venous blood specimen / Unknown Venipuncture / Unknown 01/13/2025 9:50 AM EDT 01/13/2025 9:50 AM EDT Valdez NAM LAB BLOOD ORDERABLES Fi nal Result Performing Organization Address City/[facility]/ZIP Co de Phone Number [facility] [address] [place] [address], [place] [phone] * Thyroid stimulating hormone with reflex to free t4 and free t3 (01/08/2025 3:39 PM EDT) [facility] TSH 1.93 0.40 - 4.00 mcIU/mL LAB CHEMISTRY METHOD 01/08/2025 7:18 PM EDT [facility] Blood Venous blood specimen / Unknown Venipuncture / Unknown 01/08/2025 3:39 PM EDT 01/08/2025 3:39 PM EDT us Grace Donis DO LAB BLOOD ORDERABLES Final Res ult [facility] [address] [place] [address], [place] [phone] * (ABNORMAL) CBC auto differential (01/08/2025 3:39 PM EDT) [facility] WBC 8.4 4.8 - 10.8 K/mcL LAB HEMETOLOGY METHOD 01/08/2025 6:55 PM EDT [facility] RBC 4.60 4.50 - 5.50 M/mcL LAB HEMETOLOGY METHOD 01/08/2025 6:55 PM EDT [facility] Hemoglobin 13.4(L) 13.5 - 17.5 g/dL LAB HEMETOLOGY METHOD 01/08/2025 6:55 PM EDT [facility] Hematocrit 40.7(L) 42.0 - 54.0 % LAB HEMETOLOGY METHOD 01/08/2025 6:55 PM EDT [facility] MCV 87.7 79.0 - 98.0 FL LAB HEMETOLOGY METHOD 01/08/2025 6:55 PM EDT [facility] MCH 28.9 27.0 - 32.0 pcg LAB HEMETOLOGY METHOD 01/08/2025 6:55 PM EDT [facility] MCHC 32.9 32.0 - 37.0 g/dL LAB HEMETOLOGY METHOD 01/08/2025 6:55 PM EDT [facility] RDW 13.5 11.0 - 15.0 % LAB HEMETOLOGY METHOD 01/08/2025 6:55 PM EDT [facility] Platelets 226 130 - 400 K/mcL LAB HEMETOLOGY METHOD 01/08/2025 6:55 PM EDT [facility] MPV 10.9 7.0 - 11.0 FL LAB HEMETOLOGY METHOD 01/08/2025 6:55 PM EDT [facility] NRBC 0.0 <1.0 % LAB HEMETOLOGY METHOD 01/08/2025 6:55 PM EDT [facility] NRBC Absolute 0.00 <0.10 K/mcL LAB HEMETOLOGY METHOD 01/08/2025 6:55 PM EDT [facility] Neutrophils Relative 62.2 % LAB HEMETOLOGY METHOD 01/08/2025 6:55 PM EDT [facility] Lymphocytes Relative 28.1 % LAB HEMETOLOGY METHOD 01/08/2025 6:55 PM EDT [facility] Monocytes Relative 6.2 % LAB HEMETOLOGY METHOD 01/08/2025 6:55 PM EDT [facility] Eosinophils Relative 2.3 % LAB HEMETOLOGY METHOD 01/08/2025 6:55 PM EDT [facility] Basophils Relative 0.7 % LAB [facility]EMETOLOGY [facility]/08[facility]25 6[facility] Immature Granulocytes Relative 0.5 % LAB HEMETOLOGY METHOD 01/08/2025 6:55 PM EDT [facility] Neutrophils Absolute 5.24 1.50 - 7.00 K/mcL LAB HEMETOLOGY METHOD 01/08/2025 6:55 PM EDT [facility] Lymphocytes Absolute 2.37 1.00 - 5.00 K/mcL LAB HEMETOLOGY METHOD 01/08/2025 6:55 PM EDT [facility] Monocytes Absolute 0.52 0.20 - 1.00 K/mcL LAB HEMETOLOGY METHOD 01/08/2025 6:55 PM EDT [facility] Eosinophils Absolute 0.19 0.00 - 0.50 K/mcL LAB HEMETOLOGY METHOD 01/08/2025 6:55 PM EDT [facility] Basophils Absolute 0.06 0.00 - 0.20 K/[facility] LAB HEMETOLOGY METHOD 01/08/2025 6:55 PM EDT [facility] Immature Granulocytes Absolute 0.04(H) 0.00 - 0.03 K/[facility] LAB HEMETOLOGY METHOD 01/08/2025 6:55 PM EDT [facility] Blood Venous blood specimen / Unknown Venipuncture / Unknown 01/08/2025 3:39 PM EDT 01/08/2025 3:39 PM EDT Grace Donis DO LAB BLOOD ORDERABLES Final Res ult Performing Organization Address [facility]/ZIP Co de Phone Number [facility] [address] [place] [address], * (ABNORMAL) Iron and TIBC (01/08/2025 3:39 PM EDT) Iron 55 50 - 160 mcg/dL LAB CHEMISTRY METHOD 01/08/2025 7:17 PM EDT [facility] TIBC 290 250 - 450 mcg/dL LAB CHEMISTRY METHOD 01/08/2025 7:17 PM EDT [facility] Iron Saturation 19(L) 20 - 50 % LAB CHEMISTRY METHOD 01/08/2025 7:17 PM EDT [facility] Blood Venous blood specimen / Unknown Venipuncture / Unknown 01/08/2025 3:39 PM EDT 01/08/2025 3:39 PM EDT Grace Donis DO LAB BLOOD ORDERABLES Final Res ult Performing Organization Address City/[facility]/ZIP Co de Phone Number [facility] [address] [place] [address], * (ABNORMAL) Vitamin D 25 hydroxy (01/08/2025 3:39 PM EDT) Vit D, 25-Hydroxy 25.1(L) 30.0 - 80.0 ng/mL LAB CHEMISTRY METHOD 01/08/2025 7:18 PM EDT [facility] Blood Venous blood specimen / Unknown Venipuncture / Unknown 01/08/2025 3:39 PM EDT 01/08/2025 3:39 PM EDT [facility] LAB BLOOD ORDERABLES Final Res ult Performing Organization Address City/[facility]/ZIP Co de Phone Number [facility] [address] [place] [address], [place] [phone] * (ABNORMAL) Folate (01/08/2025 3:39 PM EDT) [facility] Folate >20.0(H) 2.8 - 17.0 ng/ml LAB CHEMISTRY METHOD 01/08/2025 7:17 PM EDT [facility] Blood Venous blood specimen / Unknown Venipuncture / Unknown 01/08/2025 3:39 PM EDT 01/08/2025 3:39 PM EDT [facility] LAB BLOOD ORDERABLES Final Res ult [facility] [address] [place] [address], [place] [phone] * Ferritin (01/08/2025 3:39 PM EDT) Pathologist [facility] Ferritin 102 26 - 388 ng/mL LAB CHEMISTRY METHOD 01/08/2025 7:17 PM EDT [facility] Blood Venous blood specimen / Unknown Venipuncture / Unknown 01/08/2025 3:39 PM EDT 01/08/2025 3:39 PM EDT [facility] LAB BLOOD ORDERABLES Final Res ult [facility] [address] [place] [address], [place] [phone] * Vitamin B12 (01/08/2025 3:39 PM EDT) Pathologist [facility] Vitamin B-12 850 250 - 900 pcg/mL LAB CHEMISTRY METHOD 01/08/2025 7:17 PM EDT [facility] Blood Venous blood specimen / Unknown Venipuncture / Unknown 01/08/2025 3:39 PM EDT 01/08/2025 3:39 PM EDT [facility] LAB BLOOD ORDERABLES Final Res ult Performing Organization Address City/[facility]/ZIP Co de Phone Number [facility] [address] [place] [address], [place] [phone] * (ABNORMAL) Comprehensive metabolic panel (01/08/2025 3:39 PM EDT) [facility] Sodium 141 133 - 145 mmol/L LAB CHEMISTRY METHOD 01/08/2025 7:17 PM [facility] Potassium 3.6 3.5 - 5.5 mmol/L LAB CHEMISTRY METHOD 01/08/2025 7:17 PM T [facility] Chloride 105 96 - 110 mmol/L LAB CHEMISTRY METHOD 01/08/2025 7:17 PM [facility] CO2 27 21 - 32 mmol/L LAB CHEMISTRY METHOD 01/08/2025 7:17 PM T [facility] Anion Gap 9 3 - 11 LAB CHEMISTRY METHOD 01/08/2025 7:17 PM [facility] Glucose 169(H) 70 - 100 mg/dL LAB CHEMISTRY METHOD 01/08/2025 7:17 PM T [facility] BUN 15 5 - 25 mg/dL LAB CHEMISTRY METHOD 01/08/2025 7:17 PM [facility] Creatinine 0.90 0.70 - 1.30 mg/dL LAB CHEMISTRY METHOD 01/08/2025 7:17 PM [facility] eGFR 98 >=60 mL/min/1. 73m2 LAB CHEMISTRY METHOD 01/08/2025 7:17 PM [facility] Comment:Calculation based on the Chronic Kidney Disease Epidemiology Collaboration (CKD-EPI) equation refit without adjustment for race. BUN/Creatinine Ratio 16.7 LAB CHEMISTRY METHOD 01/08/2025 7:17 PM [facility] Calcium 8.6 8.5 - 10.5 mg/dL LAB CHEMISTRY METHOD 01/08/2025 7:17 PM [facility] AST (SGOT) 25 10 - 42 unit/L LAB CHEMISTRY METHOD 01/08/2025 7:17 PM [facility] ALT (SGPT) 22 10 - 60 unit/L LAB CHEMISTRY METHOD 01/08/2025 7:17 PM [facility] Alkaline Phosphatase 143(H) 42 - 121 unit/L LAB CHEMISTRY METHOD 01/08/2025 7:17 PM [facility] Total Protein 6.7 6.0 - 8.0 g/dL LAB CHEMISTRY METHOD 01/08/2025 7:17 PM [facility] Albumin 3.5 3.2 - 5.0 g/dL LAB CHEMISTRY METHOD 01/08/2025 7:17 PM [facility] Total Bilirubin 0.4 0.0 - 1.4 mg/dL LAB CHEMISTRY METHOD 01/08/2025 7:17 PM [facility] Blood Venous blood specimen / Unknown Venipuncture / Unknown 01/08/2025 3:39 PM EDT 01/08/2025 3:39 PM EDT Grace Thomasudi DO LAB BLOOD ORDERABLES Final Res ult [facility] [address] [place] [address], * Poc Rapid [id number], MOLECULAR (12/24/2024 4:22 PM EDT) COVID-19/SARS- COV-2 Rapid POC Negative Negative Swab Nasopharyngeal structure / Unknown 12/24/2024 4:22 PM EDT Raymundo NAM POINT OF CARE TEST ENTER/E DIT ORDERABLES Final Result * Diabetes Eye Exam (08/02/2024) Provider [place] [employer] HEALTH MAINTENANCE Final Result * COLONOSCOPY Anesthesia - MAC; [facility] ENDOSCOPY (06/17/2024 8:01 AM EST) Anatomical Region [...] for surveillance. Narrative 06/17/2024 7:55 AM EST [facility] GI Patient Name: Katia Cuello Procedure [...] retroflexion views. Procedure Code(s): --- Professional --- 78846, Colonoscopy, flexible; with removal of tumor(s), polyp(s), or other lesion(s) by snare technique Diagnosis Code(s): --- Professional --- Z86.010, Personal history of colonic polyps D12.0, Benign neoplasm of cecum D12.3, Benign neoplasm of transverse colon (hepatic flexure or splenic flexure) CPT copyright 2020 [employer] [place] [employer]. All rights reserved. The codes documented in this report are preliminary and upon market development trainer review may be revised to meet current compliance requirements. Curly Fam MD 06/17/2024 7:55:29 AM This report has been signed electronically.Curly Fam MD Number of Addenda: 0 Note Initiated On: 06/17/2024 7:35 AM Scope In: Scope Out: Endoscopy Department at [facility] - [address] [place] [phone] Procedure Note Curly Fam MD - 06/17/2024 [facility] GI Patient Name: Katia Cuello Procedure [...] retroflexion views. Procedure Code(s): --- Professional --- 93015, Colonoscopy, flexible; with removal of tumor(s), polyp(s), or other lesion(s) by snare technique Diagnosis Code(s): --- Professional --- Z86.010, Personal history of colonic polyps D12.0, Benign neoplasm of cecum D12.3, Benign neoplasm of transverse colon (hepatic flexure or splenic flexure) CPT copyright 2020 [employer] [place] [employer]. All rights reserved. The codes documented in this report are preliminary and upon market development trainer reviewmay be revised to meet current compliance requirements. Curly Fam MD 06/17/2024 7:55:29 AM This report has been signed electronically.Curly Fam MD Number of Addenda: 0 Note Initiated On: 06/17/2024 7:35 AM Scope In: Scope Out: Endoscopy Department at [facility] - [address] [place] [phone] IMPRESSION: - One 10 mm polyp in the cecum, removed piecemeal using a cold snare. Resected and retrieved. - Two 7 to 8 mm polyps at the splenic flexure,removed with a cold snare. Resected and retrieved. - The examination was otherwise normal on directand retroflexion views. Recommendation: - Await pathology results. - Repeat colonoscopy in 3 years for surveillance. Result [facility] [place] Curly Fam MD GI~PROCEDURE ORDERABLES Jared jamarcus Result - Final * (ABNORMAL) Lipid panel (05/12/2022) [facility] LDL/HDL Ratio 4 0 - 4 Triglycerides 110 0 - 150 mg/dL Cholesterol 139 0 - 200 mg/dL HDL 32(A) >=40 mg/dL LDL Cholesterol 85 0 - 100 mg/dL Blood Venous blood specimen / Unknown Result [facility] Provider LAB BLOOD ORDERABLES Doreen l Result * Hepatitis C Screening (11/08/2021) [facility]ologist [facility] Hepatitis C Screening abstracted Result [facility] [place] Historical Provider HEALTH MAINTENANCE Final Result * Urine Albumin Creatinine Ratio (08/02/2021) [facility] Urine Albumin Creatinine Ratio abstracted Result [facility] Provider HEALTH MAINTENANCE Final Result from Last 3 Months or Most Recently Relevant to Health Maintenance Insurance [facility]) Care Teams Outside Plant Engineer Relationship Specialty Start Date End Date Grace Donis DO [address] [place] [phone] PCP - General 04/26/24
--- OUTSIDE RECORDS SUMMARY | 2025-03-17 16:25 | XMS_ITS | Clinical Summary ---
Author Organization [facility] Address [address] [place] [address] Care Team Providers Care Legal Aide Name Role Phone System, Provider Not In [...] patient's age to complete this topic Insurance [facility] - PPO Care Teams Legal Aide Relationship Specialty Start Date End Date System, Provider Not In PCP - General 12/17/23
== END 2025-03-17 15:18 | disposition home or self-care (01) ==
LOC: HO.HCS 14:44
PROVIDERS: PCP Internal Medicine; Visit Provider Internal Medicine
DX: I25.10 Atherosclerotic heart disease of native coronary artery without angina pectoris (principal); Z78.9 Other specified health status; G47.33 Obstructive sleep apnea (adult) (pediatric)
CPT/HCPCS: 99214

== ENCOUNTER 2025-04-02 13:00 | Outpatient (REF) | payer BC, SELFPAY ==
[2023-07-06 13:38] VITALS: BP 124/54; BP 124/68; BP 130/64; BMI 36.3
--- NOTE | ~2025-04-02 | US_ITS ---
EXAMINATION: US TRIPLEX LOWER EXTREMITY, BILATERAL CLINICAL INFORMATION: Edema, lower extremities. COMPARISON: None available. TECHNIQUE: Color-flow triplex imaging with spectral analysis and compression Doppler were performed on the bilateral lower extremities. FINDINGS: Respiratory variation, normal compression and augmented flow are demonstrated throughout the interrogated common femoral vein, superficial femoral vein, profunda femoral vein, popliteal vein and midcalf peroneal and posterior tibial venous segments, both lower extremities. There is no Cotton's cyst. US/US venous duplex LE BI IMPRESSION: No acute deep venous thrombosis interrogated veins, bilateral lower extremities. Negative for DVT.. Electronically signed by: Juventino Shook MD 04/02/2025 01:45 PM EDT
[2025-04-02 14:27] LABS: B Type Natriuretic Peptide < 10 pg/mL (<100)
[2025-04-02 14:43] LABS: Alanine Aminotransferase 18 U/L (0-40); Albumin Level 4.5 g/dL (3.5-5.0); Alkaline Phosphatase 103 U/L (39-117); Aspartate Amino Transferase 32 U/L (5-37); Cholesterol 93 mg/dL (<200); HDL Cholesterol 30 mg/dL (>40); Total Protein 7.5 g/dL (6.5-8.0); Triglycerides 96 mg/dL (<150)
--- OUTSIDE RECORDS SUMMARY | 2025-04-02 15:59 | XMS_ITS | Clinical Summary ---
Author Organization [facility] Address [address] [place] [address] Phone Care Team Providers Care Feature Writer Name Role Phone Krys Norris MD Primary Care Provider [phone] Allergies Active Allergy Reactions Criticality Noted Date Comments Adhesive Tape-Silicones Hives 06/11/2024 Amoxicillin-Pot Clavulanate Itching 06/11/20 24 Codeine Itching 06/11/2024 Medications budesonide-form oteroL (SYMBICORT) 160-4.5 mcg/actuation inhaler Inhale 2 puffs by mouth. 3 Active fluticasone propion-salmete roL (ADVAIR HFA) 230-21 mcg/actuation inhaler Inhale 2 puffs by mouth. 4 Active levothyroxine (SYNTHROID, LEVOTHROID) 75 mcg tablet [...] BY MOUTH EVERY DAY 90 tablet 1 5 Active fluticasone furoate (Arnuity Ellipta) 100 [...] 30 each 2 5 04/08/20 25 Active [id number] a-fish oil 600-1,000 mg capsule Take 1 capsule by mouth 2 (two) times daily morning and afternoon. 180 capsule 1 5 Active Active Problems Problem Noted Date Diagnosed Date Class 2 severe obesity with serious comorbidity and body mass index (BMI) of 37.0 to 37.9 in adult ([facility] V24, [facility] V28) 12/23/2024 NSTEMI (non-ST elevated myoc ardial infarction) ([facility] V24, [facility] V28) 01/27/2023 HLD (hyperlipidemia) 05/17/2022 Phelps's esophagus 11/01/2021 Hypogonadism in male 08/06/2021 MAGALIS on CPAP 08/06/2021 Generalized anxiety disorder 08/02/2021 Hypothyroidism 08/02/2021 Primary hypertension 08/02/2021 Encounters Date Type Department Care Team Description 03/21/2025 Telephone Lung Screening Program - [place] [address] [facility] [address] [place] [address] Fatmata Mg MA 02/26/2025 8:00 AM EDT Nutrition Bariatric Surgery - [place] [address] [facility] [address] [place] [address] Class 2 severe obesity with serious comorbidity and body mass index (BMI) of 37.0 to 37.9 in adult, unspecified obesity type ([facility] V24, [facility] V28) (Primary Dx) 02/19/2025 Telephone Gastroenterology - [address] [place] [address] Jazmin Fernandez MA 01/28/2025 [facility] [phone] Grace Donis DO 01/08/2025 3:30 PM EDT [facility] [address] [phone] Grace Donis DO Other fatigue (Primary Dx); Coronary artery disease due to lipid rich plaque; Hyperlipidemia, unspecified hyperlipidemia type; Chronic obstructive pulmonary disease, unspecified COPD type ([facility] V24, [facility] V28); Hypothyroidism, unspecified type 01/08/2025 Telephone Internal Medicine - [address] [phone] Grace Donis DO from Last 3 Months Immunizations Name Administration Dates Next Due Influenza trivalent, 0.5mL, preservative free (Fluarix; FluLaval; Fluzone) ages 6mo and older (Afluria) 3 years and older 06/30/2021,05/09/2020 real5D SARS-CoV-2 COVID-19, mRNA, LNP-S, preservative free 06/30/2021 Pneumococcal conjugate 20 va lent (Prevnar 20, PCV 20) 2mo and older 07/12/2023 Tdap Tetanus diptheria acell ular pertussis (Boostrix; Adacel) 7yo and older 03/17/2023 Surgical History Surgery Date Site/Laterality Comments OTHER SURGICAL HISTORY PROCEDURE: [place] INSTLJ VIA CHEST TUBE/CATH AGENT FOR PLEURODESIS TONSILLECTOMY PROCEDURE: HISTORICAL TONSILLECTOMY NASAL SEPTUM SURGERY PROCEDURE: IL SEPTOPLASTY/SUBMUCOUS RESECJ W/WO CARTILAGE GRF; COMMENT: X2 CARPAL TUNNEL RELEASE Bilateral PROCEDURE: HISTORICAL CARPAL TUNNEL REL OTHER SURGICAL HISTORY PROCEDURE: [place] ANES VASECTOMY UNI/BI INCL OPEN URETHRAL PX OTHER SURGICAL HISTORY 12/2022 PROCEDURE: IL PATIENT HAS A CORONARY ARTERY STENT; COMMENT: [...] care for your loved ones. For example, child care education coordinator or elderly care for an older adult? [...] Care Team (Late st Contact Info) Description 04/10/2025 7:45 AM EDT Appointment [facility] CT Scan [address] [place] [address] 04/15/2025 8:15 AM EDT Telemedicine Internal Medicine - [facility] [address] [place] [address] Lorene Lubin, QUENTIN [address] [place], [place] [phone] 05/29/2025 8:00 AM EST Nutrition Bariatric Surgery - [place] [address] [facility] [address] [place] [address] Moraima Zhang, RD [address] [address] Health Maintenance Due Date Last Done Comments Diabetes: Annual Foot Exam 1974 Zoster Vaccines (1 of 2) 12/07/1983 HIV Screening 07/03/2022 Diabetes: Annual Urine Albumin-Creatinine Ratio (uACR) 09/06/2024 08/02/2021 RSV Immunization Adult Patients (1 - Risk 60-74 years 1-dose series) 2024 COVID-19 Vaccine (4 - 2024-2 6 season) 2025 06/30/2021, 09/29/2020, 09/08/2020 Influenza Vaccine (#1) 2025 , 05/09/2020 Diabetes: [...] Procedure Name Priority Date/Time Associated Diagnosis Comments EXTERNAL ULTRASOUND REPORT 04/02/2025 POC OCCULT BLOOD STOOL Routine 10:33 AM EDT Encounter for screening fecal [...] Routine 01/08/2025 3:39 PM EDT Other fatigue DIABETES EYE EXAM 08/02/2024 COLONOSCOPY Routine 06/17/2024 8:01 AM EST Personal history of colon polyps, unspecified LIPID PANEL Routine 05/12/2022 HEPATITIS C SCREENING Routine 11/08/2021 URINE ALBUMIN CREATININE RATIO Routine 08/02/2021 from Last 3 Months or Most Recently Relevant to Health Maintenance Results * External Ultrasound Report (04/02/2025) Anatomical Region Laterality Modality Ultrasound us Provider [facility] PROCEDURES Final Result * POC Fecal Immunochemical Testing (FIT) Screening or Diagnostic (02/18/2025 10:33 AM EDT) Fecal Occult Blood POC Negative Negative EXPIRATION DATE POC 10/21/25 POC Occult Blood 1 Int QC Pass? Yes Yes Stool Rectum structure / Unknown 02/18/2025 10:33 AM EDT [place] [facility] POINT OF CARE TEST ENTE R/EDIT ORDERABLES Final Result * (ABNORMAL) Alkaline phosphatase (01/13/2025 9:50 AM EDT) [facility] Alkaline Phosphatase 128(H) 42 - 121 unit/L LAB CHEMISTRY METHOD 01/13/2025 2:40 PM EDT [facility] Blood Venous blood specimen / Unknown Venipuncture / Unknown 01/13/2025 9:50 AM EDT 01/13/2025 9:50 AM EDT [facility] LAB BLOOD ORDERABLES Fi nal Result Performing Organization Address City/[facility]/ZIP Co de Phone Number [facility] [address] [place] [address], [place] [phone] * Hemoglobin A1c (01/13/2025 9:50 AM EDT) [facility] Hemoglobin A1C 5.8 <6.5 % LAB CHEMISTRY METHOD 01/13/2025 2:11 PM EDT [facility] Mean Bld Glu Estim. 120 mg/dL LAB CHEMISTRY METHOD 01/13/2025 2:11 PM EDT [facility] Blood Venous blood specimen / Unknown Venipuncture / Unknown 01/13/2025 9:50 AM EDT 01/13/2025 9:50 AM EDT [place] LAB BLOOD ORDERABLES Fi nal Result [facility] [address] [place] [address], [place] [phone] * GGT (01/13/2025 9:50 AM EDT) Pathologist [facility] GGT 34 7 - 64 unit/L LAB CHEMISTRY METHOD 01/13/2025 2:38 PM EDT [facility] Blood Venous blood specimen / Unknown Venipuncture / Unknown 01/13/2025 9:50 AM EDT 01/13/2025 9:50 AM EDT [place] [facility] LAB BLOOD ORDERABLES Fi nal Result Performing Organization Address [facility]/ZIP Co de Phone Number [facility] [address] [place] [address], [place] [phone] * Thyroid stimulating hormone with reflex to free t4 and free t3 (01/08/2025 3:39 PM EDT) [facility] TSH 1.93 0.40 - 4.00 mcIU/mL LAB CHEMISTRY METHOD 01/08/2025 7:18 PM EDT [facility] Blood Venous blood specimen / Unknown Venipuncture / Unknown 01/08/2025 3:39 PM EDT 01/08/2025 3:39 PM EDT Grace Donis DO LAB BLOOD ORDERABLES Final Res ult Performing Organization Address [facility]/ZIP Co de Phone Number [facility] [address] [place] [address], [place] [phone] * (ABNORMAL) CBC auto differential (01/08/2025 3:39 PM EDT) [facility] WBC 8.4 4.8 - 10.8 K/mcL LAB HEMETOLOGY METHOD 01/08/2025 6:55 PM EDT [facility] RBC 4.60 4.50 - 5.50 M/mcL LAB HEMETOLOGY METHOD 01/08/2025 6:55 PM EDT [facility] Hemoglobin 13.4(L) 13.5 - 17.5 g/dL LAB HEMETOLOGY METHOD 01/08/2025 6:55 PM EDT [facility] Hematocrit 40.7(L) 42.0 - 54.0 % LAB HEMETOLOGY METHOD 01/08/2025 6:55 PM EDT [facility] MCV 87.7 79.0 - 98.0 FL LAB HEMETOLOGY METHOD 01/08/2025 6:55 PM EDT [facility] MCH 28.9 27.0 - 32.0 pcg LAB HEMETOLOGY METHOD 01/08/2025 6:55 PM EDT [facility] MCHC 32.9 32.0 - 37.0 g/dL LAB HEMETOLOGY METHOD 01/08/2025 6:55 PM EDT [facility] RDW 13.5 11.0 - 15.0 % LAB HEMETOLOGY METHOD 01/08/2025 6:55 PM EDT [facility] Platelets 226 130 - 400 K/mcL LAB HEMETOLOGY METHOD 01/08/2025 6:55 PM EDT [facility] MPV 10.9 7.0 - 11.0 FL LAB HEMETOLOGY METHOD [facility]/08[facility]25 [facility] NRBC 0.0 <1.0 % LAB HEMETOLOGY METHOD 01/08/2025 6:55 PM EDT [facility] NRBC Absolute 0.00 <0.10 K/mcL LAB HEMETOLOGY METHOD 01/08/2025 6:55 PM EDT [facility] Neutrophils Relative 62.2 % LAB HEMETOLOGY METHOD 01/08/2025 6:55 PM EDT [facility] Lymphocytes Relative 28.1 % LAB HEMETOLOGY METHOD 01/08/2025 6:55 PM EDT [facility] Monocytes Relative 6.2 % LAB HEMETOLOGY METHOD 01/08/2025 6:55 PM EDT [facility] Eosinophils Relative 2.3 % LAB HEMETOLOGY METHOD 01/08/2025 6:55 PM EDT [facility] Basophils Relative 0.7 % LAB HEMETOLOGY METHOD 01/08/2025 6:55 PM EDT [facility] Immature Granulocytes Relative 0.5 % LAB HEMETOLOGY METHOD 01/08/2025 6:55 PM EDT [facility] Neutrophils Absolute 5.24 1.50 - 7.00 K/mcL LAB HEMETOLOGY METHOD 01/08/2025 6:55 PM EDT [facility] Lymphocytes Absolute 2.37 1.00 - 5.00 K/mcL LAB HEMETOLOGY METHOD 01/08/2025 6:55 PM EDT [facility] Monocytes Absolute 0.52 0.20 - 1.00 K/mcL LAB HEMETOLOGY METHOD 01/08/2025 6:55 PM EDT [facility] Eosinophils Absolute 0.19 0.00 - 0.50 K/mcL LAB HEMETOLOGY METHOD 01/08/2025 6:55 PM EDT [facility] Basophils Absolute 0.06 0.00 - 0.20 K/mcL LAB HEMETOLOGY METHOD 01/08/2025 6:55 PM EDT [facility] Immature Granulocytes Absolute 0.04(H) 0.00 - 0.03 K/mcL LAB HEMETOLOGY METHOD 01/08/2025 6:55 PM EDT [facility] Blood Venous blood specimen / Unknown Venipuncture / Unknown 01/08/2025 3:39 PM EDT 01/08/2025 3:39 PM EDT us Grace Donis DO LAB BLOOD ORDERABLES Final Res ult [facility] [address] [place] [address], * (ABNORMAL) Iron and TIBC (01/08/2025 3:39 PM EDT) Iron 55 50 - 160 mcg/dL LAB CHEMISTRY METHOD 01/08/2025 7:17 PM EDT [facility] TIBC 290 250 - 450 mcg/dL LAB CHEMISTRY METHOD 01/08/2025 7:17 PM EDT [facility] Iron Saturation 19(L) 20 - 50 % LAB CHEMISTRY METHOD 01/08/2025 7:17 PM EDT [facility] Blood Venous blood specimen / Unknown Venipuncture / Unknown 01/08/2025 3:39 PM EDT 01/08/2025 3:39 PM EDT [facility] LAB BLOOD ORDERABLES Final Res ult Performing Organization Address City/[facility]/ZIP Co de Phone Number [facility] [address] [place] [address], [place] [phone] * (ABNORMAL) Vitamin D 25 hydroxy (01/08/2025 3:39 PM EDT) [facility] Vit D, 25-Hydroxy 25.1(L) 30.0 - 80.0 ng/mL LAB CHEMISTRY METHOD 01/08/2025 7:18 PM EDT [facility] Blood Venous blood specimen / Unknown Venipuncture / Unknown 01/08/2025 3:39 PM EDT 01/08/2025 3:39 PM EDT [facility] LAB BLOOD ORDERABLES Final Res ult [facility] [address] [place] [address], [place] [phone] * (ABNORMAL) Folate (01/08/2025 3:39 PM EDT) Pathologist [facility] Folate >20.0(H) 2.8 - 17.0 ng/ml LAB CHEMISTRY METHOD 01/08/2025 7:17 PM EDT [facility] Blood Venous blood specimen / Unknown Venipuncture / Unknown 01/08/2025 3:39 PM EDT 01/08/2025 3:39 PM EDT [facility] LAB BLOOD ORDERABLES Final Res ult Performing Organization Address City/[facility]/ZIP Co de Phone Number [facility] [address] [place] [address], [place] [phone] * Ferritin (01/08/2025 3:39 PM EDT) Pathologist [facility] Ferritin 102 26 - 388 ng/mL LAB CHEMISTRY METHOD 01/08/2025 7:17 PM EDT [facility] Blood Venous blood specimen / Unknown Venipuncture / Unknown 01/08/2025 3:39 PM EDT 01/08/2025 3:39 PM EDT [facility] LAB BLOOD ORDERABLES Final Res ult Performing Organization Address [facility]/ZIP Co de Phone Number [facility] [address] [place] [address], [place] [phone] * Vitamin B12 (01/08/2025 3:39 PM EDT) Pathologist [facility] Vitamin B-12 850 250 - 900 pcg/mL LAB CHEMISTRY METHOD 01/08/2025 7:17 PM EDT [facility] Blood Venous blood specimen / Unknown Venipuncture / Unknown 01/08/2025 3:39 PM EDT 01/08/2025 3:39 PM EDT [facility] LAB BLOOD ORDERABLES Final Res ult Performing Organization Address City/[facility]/ZIP Co de Phone Number [facility] [address] [place] [address], [place] [phone] * (ABNORMAL) Comprehensive metabolic panel (01/08/2025 3:39 PM EDT) Sodium 141 133 - 145 mmol/L LAB CHEMISTRY METHOD 01/08/2025 7:17 PM [facility] Potassium 3.6 3.5 - 5.5 mmol/L LAB CHEMISTRY METHOD 01/08/2025 7:17 PM [facility] Chloride 105 96 - 110 mmol/L LAB CHEMISTRY METHOD 01/08/2025 7:17 PM [facility] CO2 27 21 - 32 mmol/L LAB CHEMISTRY METHOD 01/08/2025 7:17 PM [facility] Anion Gap 9 3 - 11 LAB CHEMISTRY METHOD 01/08/2025 7:17 PM [facility] Glucose 169(H) 70 - 100 mg/dL LAB CHEMISTRY METHOD 01/08/2025 7:17 PM [facility] BUN 15 5 - 25 mg/dL LAB CHEMISTRY METHOD 01/08/2025 7:17 PM [facility] Creatinine 0.90 0.70 - 1.30 mg/dL LAB CHEMISTRY METHOD 01/08/2025 7:17 PM [facility] eGFR 98 >=60 mL/min/1. 73m2 LAB CHEMISTRY METHOD 01/08/2025 7:17 PM [facility] Comment:Calculation based on the Chronic Kidney Disease Epidemiology Collaboration (CKD-EPI) equation refit without adjustment for race. BUN/Creatinine Ratio 16.7 LAB CHEMISTRY METHOD 01/08/2025 7:17 PM [facility] Calcium 8.6 8.5 - 10.5 mg/dL LAB CHEMISTRY METHOD 01/08/2025 7:17 PM [facility] AST (SGOT) 25 10 - 42 unit/L LAB CHEMISTRY METHOD 01/08/2025 7:17 PM [facility] ALT (SGPT) 22 10 - 60 unit/L LAB CHEMISTRY METHOD 01/08/2025 7:17 PM EDT [facility] Alkaline Phosphatase 143(H) 42 - 121 unit/L LAB CHEMISTRY METHOD 01/08/2025 7:17 PM EDT [facility] Total Protein 6.7 6.0 - 8.0 g/dL LAB CHEMISTRY METHOD 01/08/2025 7:17 PM EDT [facility] Albumin 3.5 3.2 - 5.0 g/dL LAB CHEMISTRY METHOD 01/08/2025 7:17 PM EDT [facility] Total Bilirubin 0.4 0.0 - 1.4 mg/dL LAB CHEMISTRY METHOD 01/08/2025 7:17 PM EDT [facility] Blood Venous blood specimen / Unknown Venipuncture / Unknown 01/08/2025 3:39 PM EDT 01/08/2025 3:39 PM EDT Grace Donis DO LAB BLOOD ORDERABLES Final Res ult [facility] [address] [place] [address], * Diabetes Eye Exam (08/02/2024) Provider [facility] Final Result * COLONOSCOPY Anesthesia - [facility]; [facility] ENDOSCOPY (06/17/2024 8:01 AM EST) [...] years for surveillance. Narrative 06/17/2024 7:55 AM [facility] GI Patient Name: Katia Cuello Procedure [...] retroflexion views. Procedure Code(s): --- Professional --- 47389, Colonoscopy, flexible; with removal of tumor(s), polyp(s), or other lesion(s) by snare technique Diagnosis Code(s): --- Professional --- Z86.010, Personal history of colonic polyps D12.0, Benign neoplasm of cecum D12.3, Benign neoplasm of transverse colon (hepatic flexure or splenic flexure) CPT copyright 2020 [employer]. All rights reserved. The codes documented in this report are preliminary and upon philosophy lecturer review may be revised to meet current compliance requirements. Curly Fam MD 06/17/2024 7:55:29 AM This report has been signed electronically.Curly Fam MD Number of Addenda: 0 Note Initiated On: 06/17/2024 7:35 AM Scope In: Scope Out: Endoscopy Department at [facility] - [address] [place] [phone] Procedure Note Curly Fam MD - 06/17/2024 [facility] GI Patient Name: Katia Cuello Procedure Date: [...] retroflexion views. Procedure Code(s): --- Professional --- 53173, Colonoscopy, flexible; with removal of tumor(s), polyp(s), or other lesion(s) by snare technique Diagnosis Code(s): --- Professional --- Z86.010, Personal history of colonic polyps D12.0, Benign neoplasm of cecum D12.3, Benign neoplasm of transverse colon (hepatic flexure or splenic flexure) CPT copyright 2020 [employer]. All rights reserved. The codes documented in this report are preliminary and upon philosophy lecturer reviewmay be revised to meet current compliance requirements. Curly Fam MD 06/17/2024 7:55:29 AM This report has been signed electronically.Curly Fam MD Number of Addenda: 0 Note Initiated On: 06/17/2024 7:35 AM Scope In: Scope Out: Endoscopy Department at [facility] - [address] [place] [phone] IMPRESSION: - One 10 mm polyp in the cecum, removed piecemeal using a cold snare. Resected and retrieved. - Two 7 to 8 mm polyps at the splenic flexure,removed with a cold snare. Resected and retrieved. - The examination was otherwise normal on directand retroflexion views. Recommendation: - Await pathology results. - Repeat colonoscopy in 3 years for surveillance. Result [facility] Curly Fam MD GI~PROCEDURE ORDERABLES Jared jamarcus Result - Final * (ABNORMAL) Lipid panel (05/12/2022) [facility] LDL/HDL Ratio 4 0 - 4 Triglycerides 110 0 - 150 mg/dL Cholesterol 139 0 - 200 mg/dL HDL 32(A) >=40 mg/dL LDL Cholesterol 85 0 - 100 mg/dL Blood Venous blood specimen / Unknown Result [facility] Provider LAB BLOOD ORDERABLES Doreen l Result * Hepatitis C Screening (11/08/2021) [facility] Hepatitis C Screening abstracted Result [facility] Provider HEALTH MAINTENANCE Final Result * Urine Albumin Creatinine Ratio (08/02/2021) [facility] Urine Albumin Creatinine Ratio abstracted Result [facility] Historical Toya RAMIREZ HEALTH MAINTENANCE Final Result from Last 3 Months or Most Recently Relevant to Health Maintenance Insurance [employer] [place] ([place]) Care Teams Feature Writer Relationship Specialty Start Date End Date Krys Norris MD [address] [facility] [place] PCP - General Internal Medicine 03/26/25
--- OUTSIDE RECORDS SUMMARY | 2025-04-02 15:59 | XMS_ITS ---
Author Organization [facility] Address [address] [place] [address] Phone Care Team Providers Care Client Services Account Manager Name Role Phone Krys Norris MD Primary Care Provider [phone] Transitional Care Management Status:Ongoing (Active) Start date:09/17/2024 Enrollment date:09/18/2024 Enrollment reason:Identified using hospital discharge data Case Team Name Relationship Phone Fariba Keys LPN Care Manager(Responsible Staf f) [phone] Continued Care and Services Coordination
--- OUTSIDE RECORDS SUMMARY | 2025-04-02 15:59 | XMS_ITS | Clinical Summary ---
Author Organization [facility] Address [address] [place] [address] Care Team Providers Care Greenhouse Assistant Name Role Phone System, Provider Not In [...] patient's age to complete this topic Insurance [facility] - PPO Care Teams Greenhouse Assistant Relationship Specialty Start Date End Date System, Provider Not In PCP - General 12/17/23
--- OUTSIDE RECORDS SUMMARY | 2025-04-02 15:59 | XMS_ITS | Encounter Summary ---
Author Organization [facility] Address [address] [place] [address] Care Team Providers Care Architect Marine Name Role Phone Krys Norris MD Primary Care Provider [phone] Encounter Details Date Type Department Care Team (Late st Contact Info) Description 07/31/2024 Lab Requisition [facility] - Main Lab [address] [facility] [place] [address] Stephan Bear MD [address] [facility] [address] [place] [id number] Elevated prostate specific antigen (PSA) Social History [...] Info) Description 04/10/2025 7:45 AM EDT Appointment [facility] CT Scan [address] [place] [address] 04/15/2025 8:15 AM EDT Telemedicine Internal Medicine - [facility] [address] [place] [address] Lorene Lubin, QUENTIN [address] [place] [address] 05/29/2025 8:00 AM EST Nutrition Bariatric Surgery - [place] [address] [facility] [address] [place] [address] Moraima Zhang, RD [address] [facility] [place] [address] [place] [address] documented as of this encounter Procedures Procedure Name Priority Date/Time Associated Diagnosis Comments AP OUTSIDE CONSULT Routine 07/29/2024 Elevated prostate specific antigen (PSA) documented in this encounter Results * Anatomic pathology outside consult (07/29/2024) Final Diagnosis A. Prostate, Left Middle Kyle (Core Biopsy): - Benign prostate tissue. B. Prostate, Left Lateral Kyle (Core Biopsy): -PROSTATIC ACINAR ADENOCARCINOMA CONVENTIONAL (USUAL) [...] Benign prostate tissue. G. Prostate, Right Middle Kyle (Core Biopsy): -PROSTATIC ACINAR ADENOCARCINOMA CONVENTIONAL (USUAL) TYPE -Tewksbury Score: (3+3=6) , Grade Group 1 Total Number of Cores: 1 Number of Positive Cores: 1 Percent of Prostatic Tissue Discontinuously Involved by Tumor: 60% H. Prostate, Right Lateral Kyle (Core Biopsy): - Benign prostate tissue. I. Prostate, Right Middle Middle (Core Biopsy): - Benign prostate tissue. J. Prostate, Right Lateral Middle (Core Biopsy): -PROSTATIC ACINAR ADENOCARCINOMA CONVENTIONAL (USUAL) TYPE -Tewksbury Score: (4+3=7), Grade Group 3 -Percentage Pattern: 4: 90% Total Number of Cores: 1 Number of Positive Cores: 1 Percent of Prostatic Tissue Continuously Involved by Tumor: 75% K. Prostate, Right Middle Base (Core Biopsy): -PROSTATIC ACINAR ADENOCARCINOMA CONVENTIONAL (USUAL) TYPE -Tewksbury Score: (3+3=6) , Grade Group 1 Total Number of Cores: 1 Number of Positive Cores: 1 Percent of Prostatic Tissue Continuously Involved by Tumor: 0, 5% L. Prostate, Right Lateral Base (Core Biopsy): - Benign prostate tissue. M. Prostate, Right Peripheral Zone Lesion (Core Biopsy): -PROSTATIC ACINAR ADENOCARCINOMA CONVENTIONAL (USUAL) TYPE -Tewksbury Score: (4+3=7), Grade Group 3 -Percentage Pattern: 4: 75% Total Number of Cores: 3 (fragmented) Number of Positive Cores: 3 (fragmented) Percent of Prostatic Tissue Continuously Involved by Tumor: 30% of multiple fragmented cores 08/08/2024 12:18 PM [facility] Comment E, F, G, H) PIN4 immunohistology supports the morphological diagnosis. PIN4 performed at [facility], [address], [place] [address], CLIA # [id number] 08/08/2024 12:18 PM [facility] Clinical Information Elevated PSA Last PSA total = 4.9 (2023) [id number] 08/08/2024 12:18 PM [facility] Gross Description A. Prostate, Left Mid Kyle Biopsy: Received, properly labeled, are two H and E stained slides and two unstained slides. B. Prostate, Left Lat Kyle Biopsy: Received, properly labeled, are two H [...] two unstained slides. G. Prostate, Right Mid Kyle Biopsy: Received, properly labeled, are two H and E stained slides and two unstained slides. H. Prostate, Right Lat Kyle Biopsy: Received, properly labeled, are two H [...] two unstained slides. /al 08/08/2024 12:18 PM [facility] Disclaimer Unless otherwise specified, all tissue is 10% NB formalin fixed and paraffin embedded. Technical pathology services provided by [facility] at [address] [place] [address] [address], [place] [address] (CLIA #[id number]/Hortensia Lopez MD, Head Of Sales) 08/08/2024 12:18 PM [facility] Tissue Prostate / Unknown 07/29/20242024 8:40 [...] LAB PATHOLOGY ORDERABLES Final Result [facility] [address] [place] [address], documented in this encounter Visit Diagnoses Diagnosis Elevated prostate specific antigen (PSA) documented in this encounter Additional Health Concerns Infection Onset Date Last Indicated Resolved Time COVID-19 08/15/2024 08/15/2024 09/14/2024 7:0 4 PM EST documented as of this encounter Care Teams Architect Marine Relationship Specialty Start Date End Date Krys Norris MD [address] [place], [place] [address] PCP - General Internal Medicine 03/26/25 documented as of this encounter
--- OUTSIDE RECORDS SUMMARY | 2025-04-02 15:59 | XMS_ITS | Continuity of Care Document ---
Author Organization [facility] Address [address] [facility] [address] [place], [place] Phone [phone] Care Team Providers Care Child Welfare Social Worker Name Role Phone Lavelle Helton MD Care Team Information Face And Fill Packer Unavailable MARLEEN HENDERSON M.D. Care Team Information [...] Indications Order ing Provider Date Metformin HCL EX576cn Tablets ER 24HR 1 tab by mouth twice a day 180tabs R73.03 Marleen Henderson M.D. 01/31/2025 Pfeeylnz7ze/0.5ML Solution Auto-Inject administer 5 mg under the skin 1 time a week(off awaiting PA) 6ml Marleen Henderson M.D. 08/12/2024 BD Pen Needle/Mini/Ultra-Fin e/31G X 5mm31G X 5 mm Misc use 1 needle a day 30units E88.81 Marleen Henderson M.D. 05/06/2022 Kiyuwbs62ac Chewtabs take 1 tablet by mouth every day 90units Marleen Henderson M.D. 11/14/2018 Levothyroxine Omdhpb96tfh Tablets Take 1 Tablet by mouth Daily 90tabs Marleen Henderson M.D. 07/05/2018 Metoprolol Succinate ER50mg Tablets ER 24HR TK 1 T PO qd->1/2 a day(07/2022)->1/d()->1/2(2023) Unknown Testosterone Dmyfddbdp046kt/ml Solution 0.5 cubic centimeters injection every week 2ml Unknown Licorice for sugar Unknown Berberine Unknown Fish Oil Unknown Vit D 2000iu/d Unknown Vitamin [id number] Tablets 1 by mouth every day Unknown Blrauikfc3hd Tablets Take 1 Tablet By Mouth Daily Unknown Metamucil off lately Unknown 0 Combivent Hlozgcfw06-514ahp/Act Aerosol Unknown Paroxetine HCL ER25mg Tablets ER 24HR Unknown Atorvastatin Dfpkasv06me Tablets 1/2 by mouth every day 90tabs Unknown Jrbxcqegmy1bs Tablets as needed Unknown History Medications Zepbound2.5mg/0.5ML Solution Auto-Inject inject 2.5mg subcutaneously once a week 2ml Marleen Henderson M.D. 07/23/2024 - 08/12/2024 Rvxcbbos0nz/0.5ML Solution Auto-Inject administer 5 mg under the skin 1 time a week 2ml Marleen Henderson M.D. 03/27/2024 - 07/23/2024 Zepbound2.5mg/0.5ML Solution Auto-Inject inject 2.5mg subcutaneously once a week 2ml Marleen Henderson M.D. 03/21/2024 - 03/27/2024 Iewirvqq4uk/0.5ML Solution Auto-Inject administer 5 mg under the skin 1 time a week 2ml Marleen Henderson M.D. 03/06/2024 - 03/21/2024 Zepbound2.5mg/0.5ML Solution Auto-Inject inject 2.5mg subcutaneously once a week 2ml Marleen Henderson M.D. 02/14/2024 - 03/06/2024 Mounjaro2.5mg/0.5ML Solution Pen-Inject inject 2.5mg subcutaneously q1week 2ml Marleen Henderson M.D. 02/12/2024 - 02/14/2024 Rgafuopsl82ml Tablets 1 tab by mouth every day 90tabs E88.8 10 Marleen Henderson M.D. 09/29/2023 - 09/29/2023 Wykxyoyyc49qj Tablets 1 tab by mouth every day 90tabs Marleen Henderson M.D. 05/18/2023 - 04/23/2024 Vitamin V5901ycp (5000 Ut) Capsules 1 tab by mouth every day 90caps E55.9 Marleen Henderson M.D. 09/21/2022 - 05/17/2023 Clonidine HCL0.1mg Tablets take 1 tablet by mouth at bedtime as directed 90tabs I10 Marleen Henderson M.D. 08/12/2022 - 05/17/2023 Uyhbzcy32lg/3ML Solution Pen-Inject inject 0.6 cubic centimeters injection subcutaneous every day 15ml E88.8 1 Marleen Henderson M.D. 05/06/2022 - 08/12/2022 Testosterone Ikzbimpwh652nh/ml Solution inject 0.3ml(60mg) Im every week 10ml E29.1 Marleen Henderson M.D. 02/24/2022 - 01/11/2023 BD TB Syringe 25GX5/8 Use One syringe Every Week 10units Marleen Henderson M.D. 02/24/2022 - 05/17/2023 Rybikspiag45ar Tablets 1 tab by mouth every day 90tabs I10 Marleen Henderson M.D. 02/04/2022 - 05/17/2023 Kthimkcsxq2me Tablets 1 by mouth every day 90tabs [...] 1 Marleen Henderson M.D. 02/12/2021 - 04/28/2021 Jktjvhkey2oc/24HR Patches 24HR apply 1 patch daily 30units E29.1 Marleen Henderson M.D. 02/12/2021 - 07/08/2021 Testosterone Vwgjljaqa131ep/ml Solution 0.5 cubic centimeters injection every week 2ml E29.1 Marleen Henderson M.D. 11/13/2020 - 02/12/2021 BD TB Syringe 25GX5/8 Use One Every Week 4units Marleen Henderson M.D. 11/13/2020 - 02/12/2021 Ozempic (1 MG/Dose)2mg/1.5ML Solution Pen-Inject 1mg subcutaneously every week 9ml E88.8 1 Marleen Henderson M.D. 11/13/2020 - 02/03/2021 Xcxxohixq3eq/24HR Patches 24HR apply 1 patch daily 30units Marleen Henderson M.D. 09/14/2020 - 11/13/2020 Ozempic (0.25 Or 0.5 MG/Dose)2mg/1.5ML Solution Pen-Inject 0.5 mg sub cutaneously every week 1.500ml E88.8 1 Marleen Henderson M.D. 08/14/2020 - 11/13/2020 Qbfzfxkbn2ha/24HR Patches 24HR apply 2 patch daily 60units E29.1 Marleen Henderson M.D. 05/01/2020 - 08/14/2020 Ozempic (0.25 Or 0.5 MG/Dose)2mg/1.5ML Solution Pen-Inject 0.25 mg sub cutaneously every week u0ynjhx then 0.5/week as tolerated 1.500ml E88.8 1 Marleen Henderson M.D. 05/01/2020 - 08/14/2020 BD TB Syringe 25GX5/8 Use One Every Week 15units Marleen Henderson M.D. 10/02/2019 - 08/14/2020 Metformin HCL NG227rb Tablets ER 24HR 1 by mouth every day 90tabs Marleen Henderson M.D. 08/19/2019 - 04/22/2020 Testosterone Xmefzfsrt889on/ml Solution 0.3 cubic centimeters injection every week 2ml E29.1 Marleen Henderson M.D. 08/16/2018 - 08/14/2020 1ML Syringe/Needle Slip Tip 25GX5/8 Sub-Q25G X 5/8 1 ML Misc use one every 1 weeks 15units E29.1 Marleen Henderson M.D. 08/16/2018 - 02/03/2021 Levothyroxine Oqjwyx36icv Tablets Take 1 Tablet Daily 90tabs Marleen Henderson M.D. 06/04/2018 - 07/05/2018 Bpwoyxpg57.5mg/2.5GM (1.62%) Gel 1 apply packets to skin daily as directed 90pkt E29.1 Marleen Henderson M.D. 05/25/2018 - 05/28/2018 Ynbxclsz93.25mg/1.25GM (1.62%) Gel place 2 packets onto skin a day(one month supply=2 boxes of 30pkt each) 112.5gm E29.1 Marleen Henderson M.D. 05/22/2018 - 07/05/2018 Trulicity0.75mg/0.5ML Solution Pen-Inject 0.75 mg subcutaneous every week 2ml Marleen Henderson M.D. 02/16/2018 - 07/05/2018 BD Pen Needle/Mini/Ultrafine/31G X 3/16 31G X 5 mm Misc 1 unit every day 100units Marleen Henderson M.D. 12/07/2017 - 07/06/2018 [facility] Vbsqrvr65dh Chewtabs Take 1 Tablet By Mouth Every Day 30units Marleen Henderson M.D. 11/24/2017 - 11/14/2018 Dwvkabi35ia/3ML Solution Pen-Inject 1 injection every day. E66.8 4units E88.8 1 Marleen Henderson M.D. 11/23/2017 - 02/09/2018 R73.03 E66.8 Metformin HCL TX534nm Tablets ER 24HR 1 tab by mouth every day 90tabs E88.81 Marleen Henderson M.D. 09/28/2017 - 11/20/2017 Paroxetine HCL ER25mg Tablets ER 24HR 1/d Unknown - 05/06/2022 Jvicrimencmy069my Tablets 2 Tablets Today, Then 1 Tablet Daily Unknown - 09/28/2017 Paroxetine HCL ER12.5mg Tablets ER 24HR 1/d Unknown - 08/14/2020 Bupropion Hydrochloride ER (XL)150mg Tablets ER 24HR 1/d with 292=380/d Unknown - 05/01/2020 Levothyroxine Osxutf26xey Tablets 1 by mouth every day Unknown - 06/04/2018 Testosterone Rmzghxluf413wv/ml Solution Unknown - 07/05/2018 Bokxgzf46jb Chewtabs Take 1 Tablet By Mouth Every Day 30units Marleen Henderson M.D. - 11/24/2017 LamictalTablets Unknown - 12/25/2017 Paroxetine WEL94ve Tablets TK 1 T PO qd Unknown - 09/28/2017 Xaamrktkku24nh Tablets TK 2 TS PO D For 3 Days Unknown - 09/28/2017 Repatha Dgcklrnxk780wa/ml Solution Auto-Inject Unknown - 01/30/2025 Bupropion Hydrochloride ER (XL)150mg Tablets ER 24HR 2/d Unknown - 02/12/2021 Atorvastatin Jprayeg85zt Tablets 1 by mouth every day 90tabs Unknown - 05/17/2023 Paroxetine HCL ER37.5mg Tablets ER 24HR 1/d Unknown - 05/17/2023 Usoagaqo969bi Suspension Rec Unknown - 01/30/2025 Atrrjpucsw383me Tablets Unknown - 01/30/2025 Ywftlwds92xn Tablets Unknown - 04/05/2024 Metoprolol Succinate ER50mg Tablets ER 24HR Unknown - 05/17/2023 Bicoetjyy455-8.5mcg/Ac t Aerosol Unknown - 01/30/2025 Cikjcjfcil53ca Tablets Take 1 Tablet By Mouth Every Day Unknown - 01/27/2023 Vit B12 Inections 1000mg x2 injections a week([employer]) Unknown - 01/30/255 Zdxkziqekuan71le Capsules Unknown - 09/28/2017 Bupropion HCL ER (XL)300mg Tablets ER 24HR 1/d with 150-450/d Unknown - 05/01/2020 Escitalopram Dhywyht0lp Tablets Unknown - 09/28/2017 Nitroglycerin0.4mg Tablets Noemi Finley MD - 09/28/2017 Testosterone Pnboctqwo165hg/ml Solution Unknown - 09/28/2017 Levothyroxine Xiuhxu58eov Tablets 1 take tablet once daily 90tabs Marleen Henderson M.D. - 02/09/2018 Ogxbnqplhpa14io Tablets Unknown - 09/28/2017 Doxycycline Rrklmmq697kt Capsules Unknown - 09/28/2017 Phenazopyridine MGL214fu Tablets Unknown - 09/28/2017 Rsgbcurnrsq690le Tablets TK 1 T PO bid Unknown - 09/28/2017 Sulfacetamide Lfyasc34% Solution Unknown - 09/28/2017 Paroxetine NHD19cf Tablets Take 1 Tablet By Mouth Every Day Unknown - 09/28/2017 Ketorolac Pknxkdaljqxj26xi Tablets Unknown - 09/28/2017 Paroxetine QQF78hj Tablets Unknown - 09/28/2017 Ventolin AMR032(90Base) mcg/Act Aerosol Inl 2 Puffs PO Q 4 H PRF Wheezing Unknown - 09/28/2017 Paroxetine SNV79rl Tablets Unknown - 09/28/2017 Bupropion HCL ER (SR)100mg Tablets ER 12HR Unknown - 11/20/2017 Trazodone PJQ24ci Tablets Unknown - 09/28/2017 Isosorbide Dinitrate ER40mg Tablets ER Take 1 Tablet Once A Day Unknown - 09/28/[address] Take One Capsule By Mouth Every Day Unknown - 09/28/2017 Naltrexone EVP28di Tablets Once A Day Unknown - 09/28/[address] TK 2 TS PO tid Unknown - 09/28/2017
== END 2025-04-02 13:01 | disposition home or self-care (01) ==
LOC: HO.US 13:00
PROVIDERS: PCP Internal Medicine; Visit Provider Internal Medicine
DX: I50.9 Heart failure, unspecified (principal); I25.10 Atherosclerotic heart disease of native coronary artery without angina pectoris; E78.5 Hyperlipidemia, unspecified; M79.89 Other specified soft tissue disorders
CPT/HCPCS: 36415; 80061; 80076; 83721; 83880; 93970

== ENCOUNTER → 2025-04-02 13:11 | Outpatient (BNV) | payer BC, SELFPAY ==
[2023-07-06 13:38] VITALS: BP 124/54; BP 124/68; BP 130/64; BMI 36.3
== END ==
PROVIDERS: PCP Internal Medicine; Visit Provider Radiology Diagnostic Radiology
DX: M79.89 Other specified soft tissue disorders (principal)
CPT/HCPCS: 93970

== ENCOUNTER → 2025-04-18 13:19 | Outpatient (REF) | payer BC, SELFPAY ==
[2023-07-06 13:38] VITALS: BP 124/54; BP 124/68; BP 130/64; BMI 36.3
--- OUTSIDE RECORDS SUMMARY | 2025-04-15 08:15 | XMS_ITS | Encounter Summary ---
Author Organization [facility] Address [address] [place] [address] Care Team Providers Care Dry Kiln Burner Name Role Phone Krys Norris MD Primary Care Provider [phone] Reason for Visit * Reason Comments Med Refill Encounter Details Date Type Department Care Team (Late st Contact Info) Description 04/15/2025 8:15 AM EDT Telemedicine Internal Medicine - [facility] [address] [place] [address] Lorene Lubin, QUENTIN [address] [place] [address] NSTEMI (non-ST elevated myocardial infarction) ([facility]/HCC V24, CMS/HCC V28) (Primary Dx); Primary hypertension; Mixed hyperlipidemia; MAGALIS on CPAP; Chronic obstructive pulmonary disease, unspecified COPD type (CMS/HCC V24, CMS/HCC V28); Hypothyroidism, unspecified type; Generalized anxiety disorder; Anxiety and depression; Hypogonadism in male Social History Tobacco Use Types Packs/Day Years [...] care for your loved ones. For example, attendant child activity or elderly care for an older adult? [...] AM EST documented as of this encounter Progress Notes * Lorene Lubin NP - 04/15/2025 8:15 AM EDT CHIEF COMPLAINT: Med Refill HPI: The patient received guidance on receiving healthcare through telehealth, including the use of HIPAA privacy -compliant technology for remote communication and its associated privacy risks. The patient was also informed of the limitations of treatment provided through telehealth and that in the event of a lost or failed video connection, the provider may call back or reschedule the visit. Alternatively, the patient may opt for an in-person visit. The patient gave consent for the use of video communication and provided care and confirmed that they were in a quiet and private location to discuss their health freely. The patient understands the visit will be submitted to their insurance and that they are responsible for any copay or deductible charges. Additionally, if the patient is LimitedEnglish Proficient, deaf, or hard of hearing, speech impaired, or has another disability which impairs their ability to communicate, the services of a qualified maintenance data analyst will be provided during the visit. Patients Location: Workplace, alone. Delta Rooney is a 59 y.o. male with chief complaint of medication visit - HTN and history of NSTEMI, stent placed in 2022, takes Toprol-XL 50 mg daily, and ASA 81 mg daily. Denies headache, dizziness, chest pain or dyspnea. Followed by [facility], report Echo scheduled next week - HLD on Lipitor 80 mg daily. Cholesterol 93. LDL 48 in 2024 - MAGALIS on CPAP. - COPD on Arnuity daily, Combivent 1 puff 4 times daily as needed. Denies recent exacerbation. Followed by Pulm regularly - Hypothyroidism on Levothyroxine 75 mcg daily. TSH within normal limit in 12/2024. Followed by [facility] - Depression and anxiety on Paxil 25 mg daily. Symptoms aggravated by stressful job. Followed by therapy/ [facility]. Denies SI and HI. - Followed by urology for low testosterone. ROS: GENERAL: No malaise, significant weight loss or fever RESPIRATORY: No cough, wheezing or shortness of breath CARDIOVASCULAR: No chest pain, leg swelling or palpitations : See HPI PSYCH: See HPI. NEURO: No persistent headache, syncope, seizures, weakness or numbness PAST MEDICAL HISTORY: Patient Active Problem List Diagnosis Date Noted Class 2 severe obesity with serious comorbidity and body mass index (BMI) of 37.0 to 37.9 in adult ([facility] V24, [facility] V28) 12/23/2024 NSTEMI (non-ST elevated myocardial infarction) ([facility] V24, [facility] V28) 01/27/2023 HLD (hyperlipidemia) 05/17/2022 Phelps's esophagus 11/01/2021 Hypogonadism in male 08/06/2021 MAGALIS on CPAP 08/06/2021 Generalized anxiety disorder 08/02/2021 Hypothyroidism 08/02/2021 Primary hypertension 08/02/2021 PASTSURGICAL HSTORY: Past Surgical History: Procedure Laterality Date CARPAL TUNNEL RELEASE Bilateral PROCEDURE: HISTORICAL CARPAL TUNNEL REL NASAL SEPTUM SURGERY PROCEDURE: AR SEPTOPLASTY/SUBMUCOUS RESECJ W/WO CARTILAGE GRF; COMMENT: X2 OTHER SURGICAL HISTORY PROCEDURE: AR INSTLJ VIA CHEST TUBE/CATH AGENT FOR PLEURODESIS OTHER SURGICAL HISTORY PROCEDURE: AR ANES VASECTOMY UNI/BI INCL OPEN URETHRAL PX OTHER SURGICAL HISTORY 12/2022 PROCEDURE: AR PATIENT HAS A CORONARY ARTERY STENT; COMMENT: Drug-eluting in proximal LAD TONSILLECTOMY PROCEDURE: HISTORICAL TONSILLECTOMY IMMUNIZATIONS/INJECTIONS: Most Recent Immunizations Administered Date(s) Administered Influenza trivalent, 0.5mL, preservative free (Fluarix; FluLaval; Fluzone) ages 6mo and older (Afluria) 3 years and older 06/30/2021 the grafter SARS-CoV-2 COVID-19, mRNA, LNP-S, preservative free 06/30/2021 Pneumococcal conjugate 20 valent (Prevnar 20, PCV 20) 2mo and older 07/12/2023 Tdap Tetanus diptheria acellular pertussis (Boostrix; Adacel) 7yo and older 03/17/2023 SOCIAL HISTORY: Social History Tobacco Use Smoking status: Former Current packs/day: 0.00 Average packs/day: 0.3 packs/day for 2.5 years (0.6 ttl pk-yrs) Types: Cigarettes Start date: 07/24/2020 Quit date: 02/03/2023 Years since quittin.1 Smokeless tobacco: Never Vaping Use Vaping status: Every Day Substance Use Topics Alcohol use: Not Currently Drug use: Not Currently FAMILY HISTORY: Family History Problem Relation Name Age of Onset Other cancer Maternal Grandfather lung cancer? COPD Mother lung cancer Lung cancer Mother Heart attack Father decreased at 52 from AR Colon cancer Neg Hx Prostate cancer Neg Hx MEDICATIONS DISCONTINUED/REORDERED: There are no discontinued medications. ACTIVE MEDICATIONS: No outpatient medications have been marked as taking for the 04/15/25 encounter (Telemedicine) with Lorene Lubin NP. ALLERGIES: Allergies Allergen Reactions Adhesive Tape-Silicones Hives Augmentin [Amoxicillin-Pot Clavulanate] Itching Codeine Itching PHYSICAL EXAM: Visit Vitals Smoking Status Former There is no height or weight on file to calculate BMI. APPEARANCE: Alert and in no acute distress NEURO: Awake, alert and oriented x 3. Unable to complete physical exam today as this is a telemedicine visit. LABS: LABS/IMAGING: Lab Results Component Value Date WBC 8.4 01/08/2025 HGB 13.4 (L) 01/08/2025 HCT 40.7 (L) 01/08/2025 MCV 87.7 01/08/2025 Lab Results Component Value Date NA 141 01/08/2025 K 3.6 01/08/2025 CO2 27 01/08/2025 CL 105 01/08/2025 BUN 15 01/08/2025 ALKPHOS 128 (H) 01/13/2025 Lab Results Component Value Date CHOL 139 05/12/2022 LDL 85 05/12/2022 HDL 32 (A) 05/12/2022 TRIG 110 05/12/2022 IMPRESSION / Plan 1. NSTEMI (non-ST elevated myocardial infarction) (CMS/HCC V24, CMS/HCC V28) 2. Primary hypertension 3. Mixed hyperlipidemia 4. MAGALIS on CPAP 5. Chronic obstructive pulmonary disease, unspecified COPD type (CMS/HCC V24, CMS/HCC V28) 6. Hypothyroidism, unspecified type 7. Generalized anxiety disorder Comprehensive metabolic panel 8. Anxiety and depression 9. Hypogonadism in male - HTN and history of NSTEMI, s/p stent placement in 2022, stable, continue Toprol-XL 50 mg dailyand ASA 81 mg daily. Follow-up with cardiology - HLD, stable, continue Lipitor 80 mg daily. - COPD, stable. Follow up with neurology - Hypothyroidism, well controlled, continue Levothyroxine 75 mcg daily. Follow up with [facility] [place] - Depression and anxiety, stable, continue Paxil 25 mg daily. - Hypogonadis, follow-up with urology - RTO in 4 months or sooner with PCP care team I have maintained a long-term, longitudinal relationship with this patient leading to the extensivework up, and management associated with the medical care of this patient. Lorene Lubin NP on 04/15/2025 at 8:30 AM EDT documented in this encounter Plan of Treatment Upcoming Encounters Date Type Department Care Team (Late st Contact Info) Description 05/29/2025 8:00 AM EST Nutrition Bariatric Surgery - [place] [address] [address] Moraima Zhang, RD [address] [address] Scheduled Orders Name Type Priority Associated Diagnoses Orde r Schedule Comprehensive metabolic panel Lab Routine Generalized anxiety disorder 1 Occurrences starting 04/15/2025 until 04/15/2026 documented as of this encounter Visit Diagnoses Diagnosis NSTEMI (non-ST elevated myocardial infarction) ([facility] V24, [facility] V28)- Primary Acute myocardial infarction, subendocardial infarction, episode of care unspecified Primary hypertension Unspecified essential hypertension Mixed hyperlipidemia MAGALIS on CPAP Chronic obstructive pulmonary disease, unspecified COPD type ([facility] V24, [facility] V28) Hypothyroidism, unspecified type Generalized anxiety disorder Anxiety and depression Hypogonadism in male documented in this encounter Additional Health Concerns Assessment Noted Time PHQ-9 Depression Total Score: 12 01/08/2 025 2:22 PM EDT documented as of this encounter Care Teams Dry Kiln Burner Relationship Specialty Start Date End Date Krys Norris MD [address] [place] [address] PCP - General Internal Medicine 03/26/25 documented as of this encounter
--- NOTE | 2025-04-18 13:21 | CA_ITS ---
Transthoracic Echocardiogram Patient (Last, First, Middle): Delta Rooney, Gender: Male Date of : 1965 Age: 59 Procedure Date: 04/18/2025 Procedure Type: Transthoracic Echocardiogram Location: OP Height: 182.88 cm Weight: 122.02 kg BSA: 2.42 m2 Heart Rate: bpm BP: 124 / 60 mmHg Campus Receptionist: Referring MD: Andrea Hernandez MD Symptoms: I50.9 - Heart failure, unspecified Study Quality: Fair Conclusions: - Normal left ventricular size and systolic function. There is moderately increased left ventricular wall thickness. The visually estimated ejection fraction is between 60-65%. - E/E prime ratio is between 8 and 15 consistent with indeterminate filling pressures. - Mildly increased right ventricular cavity size. There is normal right ventricular systolic function. Findings Left Ventricle Normal left ventricular size and systolic function. There is moderately increased left ventricular wall thickness. The visually estimated ejection fraction is between 60-65%. Abnormal diastolic function is noted. Spectral Doppler is indicative of an impaired relaxation filling pattern. E/E prime ratio is between 8 and 15 consistent with indeterminate filling pressures. Right Ventricle Mildly increased right ventricular cavity size. There is normal right ventricular systolic function. Atria The left atrium is normal in size. The right atrium is mildly dilated. Aortic Valve The aortic valve was not well visualized. There is no aortic valve stenosis. There is no aortic valve regurgitation. Mitral Valve Normal mitral valve structure and function. There is no mitral valve regurgitation. There is no mitral valve stenosis. Pulmonic Valve The pulmonic valve is normal. There is no pulmonic valve regurgitation. Tricuspid Valve Normal tricuspid valve structure. There is no tricuspid valve regurgitation. Normal right atrial pressure. There is no evidence of pulmonary hypertension. Great Vessels All visible segments of the aorta are normal in size. Venous The inferior vena cava is normal in size and collapses greater than 50% with inspiration. Pericardium/Pleural There is no evidence of pericardial effusion. Prior Study Comparison Changes noted compared to prior study dated: 01/11/2023. RV size mildly increased. Measurements 2D Linear Measurements IVSd: 1.38 0.6-0.9/0.6-1.0 cm LVIDd: 4.45 3.9-5.3/4.2-5.9 cm LVIDd Index: 1.84 2.4-3.2/2.2-3.1 cm/m2 LVIDs: 3.07 2.0-3.6 cm LVPWd: 1.38 0.7-1.1 cm LA Diam: 4.20 2.7-3.8/3.0-4.0 cm LAIDs Index: 1.74 1.5-2.3 cm/m2 LV Mass: 298.15 67-162/88-224 g LV Mass Index: 123.20 43-95/49-115 g/m2 LVOT Diam: 2.00 3.0+(-)1.3 cm 2D Systolic Function EF 4C: 62.00 >55% EF 2C: 68.50 >55% EF BiP: 64.80 >55% Mitral Valve MV Pk E: 0.69 MV PK A: 0.75 MV Decel Time: 204.00 E/A: 0.90 E'Lateral: 11.10 E'Medial: 6.42 E/E' Med: 10.80 E/E' Lat: 6.30 PHT: 60.00 MVA PHT: 3.67 Decel [place]: 3.39 Aortic Valve AoV Pk Lonnie: 1.79 AoV Mn Lonnie: 1.24 AoV VTI: 0.38 AoV Pk Grad: 13.00 Aov Mn Grad: 7.00 DEMETRIUS Cont.VTI: 2.31 LVOT LVOT Pk Lonnie: 1.16 LVOT Mn Lonnie: 0.85 LVOT VTI: 0.28 LVOT Pk Grad: 5.00 LVOT Mn Grad: 4.00 LVOT Diam: 2.00 LVOT Area: 3.14 Diastolic Function MV Pk E: 0.69 MV Pk A: 0.75 E/A: 0.90 E'Medial: 6.42 E/E' Med: 10.80 E' Laterial: 11.10 E/E' Lat: 6.30 Right Ventricle TAPSE (mm): 31.00 TVS' Lonnie: 12.90 Tricuspid Valve TR Pk Lonnie: 2.09 TR Pk Grad: 17.00 RVSP: 20.00 Great Vessels Aorta Sinus of Valsalva: 3.40 2.0-3.5 cm Ao Asc: 3.20 2.1-3.4 cm Pulmonary Valve PV Pk Lonnie: 0.84 Peak PV Grad: 3.00 Updated in Other Vendor System with Status of Final Jose Chicho MD electronically signed on 04/21/2025 9:00:00 AM with status of Final
--- OUTSIDE RECORDS SUMMARY | 2025-04-18 14:34 | XMS_ITS | Clinical Summary ---
Author Organization [facility] Address [address] [place] [address] Care Team Providers Care Senior Supply Chain Analyst Name Role Phone System, Provider Not In [...] Zoster (Shingles) Vaccine (1 of 2) 2014 Influenza Vaccine 02/21/2025 06/30/2021, 05/09/2020 COVID-19 Vaccine (4 - 2024-2 6 season) 2025 06/30/2021, 09/29/2020, 09/08/2020 RSV Vaccine 60 years and older and Patients (1 - 1-dose 75+ series) 12/07/2039 Hepatitis B Vaccines Aged Out No long er eligible based on patient's age to complete this topic Insurance [facility] - PPO Care Teams Senior Supply Chain Analyst Relationship Specialty Start Date End Date System, Provider Not In PCP - General 12/17/23
--- OUTSIDE RECORDS SUMMARY | 2025-04-18 14:34 | XMS_ITS | Clinical Summary ---
Author Organization [facility] Address [address] [place] [address] Phone Care Team Providers Care Flexo Press Operator Name Role Phone Krys Norris MD Primary Care Provider [phone] Allergies Active Allergy Reactions Criticality Noted Date Comments Adhesive Tape-Silicones Hives 06/11/2024 Amoxicillin-Pot Clavulanate Itching 06/11/20 24 Codeine Itching 06/11/2024 Medications budesonide-for moteroL (SYMBICORT) 160-4.5 mcg/actuation inhaler Inhale 2 puffs by mouth. 05/15/20 23 Active fluticasone propion-salmet Alyson (ADVAIR HFA) 230-21 mcg/actuation inhaler Inhale 2 puffs by mouth. 03/18/20 24 Active levothyroxine (SYNTHROID, LEVOTHROID) 75 mcg tablet [...] DAILY 90 tablet 1 01/09/20 25 Active [id number] pa-fish oil 600-1,000 mg capsule Take 1 capsule by mouth 2 (two) times daily morning and afternoon. 180 capsule 1 01/15/20 25 Active aspirin 81 mg chewable tablet CHEW 1 TABLET BY MOUTH EVERY DAY 90 tablet 1 04/04/20 25 Active aspirin 81 mg chewable tablet Chew 1 tablet (81 mg total) 1 (one) time each day. 30 each 01/09/20 25 025 Discontinued Active Problems Problem Noted Date Diagnosed Date Class 2 severe obesity with serious comorbidity and body mass index (BMI) of 37.0 to 37.9 in adult 12/23/2024 NSTEMI (non-ST elevated myoc ardial infarction) (CMS/[facility] V24, CMS/[facility] V28) 01/27/2023 HLD (hyperlipidemia) 05/17/2022 Phelps's esophagus 11/01/2021 Hypogonadism in male 08/06/2021 MAGALIS on CPAP 08/06/2021 Generalized anxiety disorder 08/02/2021 Hypothyroidism 08/02/2021 Primary hypertension 08/02/2021 Encounters Date Type Department Care Team Description 04/15/2025 8:15 AM EDT Telemedicine [facility] [place] [address] Lorene Lubin NP NSTEMI (non-ST elevated myocardial infarction) (CMS/HCC V24, CMS/HCC V28) (Primary Dx); Primary hypertension; Mixed hyperlipidemia; MAGALIS on CPAP; Chronic obstructive pulmonary disease, unspecified COPD type (CMS/HCC V24, CMS/[facility] V28); Hypothyroidism, unspecified type; Generalized anxiety disorder; Anxiety and depression; Hypogonadism in male 04/10/2025 7:24 AM EDT - 04/10/2025 11:59 PM EDT Hospital Encounter [facility] CT Scan [address] [place] [address] Encounter for screening for malignant neoplasm of respiratory organs; Nicotine dependence, cigarettes, uncomplicated Discharge Disposition: Home or Self Care 03/21/2025 Telephone Lung Screening Program - [place] [address] [facility] [address] [place] [address] Fatmata Mg [place] 02/26/2025 8:00 AM EDT Nutrition Bariatric Surgery - [place] [address] [facility] [address] [place] [address] Moraima Howell ch, RD Class 2 severe obesity with serious comorbidity and body mass index (BMI) of 37.0 to 37.9 in adult, unspecified obesity type (CMS/HCC V24, CMS/HCC V28) (Primary Dx) 02/19/2025 Telephone Gastroenterology - [address] [place] [address] Jazmin Fernandez [place] 01/28/2025 [facility] [place] [address] Grace Donis DO from Last 3 Months [...] Date Site/Laterality Comments OTHER SURGICAL HISTORY PROCEDURE: HI INSTLJ VIA CHEST TUBE/CATH AGENT FOR PLEURODESIS TONSILLECTOMY PROCEDURE: HISTORICAL TONSILLECTOMY NASAL SEPTUM SURGERY PROCEDURE: HI SEPTOPLASTY/SUBMUCOUS RESECJ W/WO CARTILAGE GRF; COMMENT: X2 CARPAL TUNNEL RELEASE Bilateral PROCEDURE: HISTORICAL CARPAL TUNNEL REL OTHER SURGICAL HISTORY PROCEDURE: HI ANES VASECTOMY UNI/BI INCL OPEN URETHRAL PX OTHER SURGICAL HISTORY 12/2022 PROCEDURE: HI PATIENT HAS A CORONARY ARTERY STENT; COMMENT: [...] Heart attack Father decreased at 52 from [place] Other cancer Maternal Grandfather lung ca ncer? [...] care for your loved ones. For example, director of child welfare services or elderly care for an older adult? [...] 8:00 AM EST Nutrition Bariatric Surgery - [place] [address] [facility] [address] [place] [address] Moraima Zhang, RD 175 [facility] [address] [place] [address] Health Maintenance Due Date Last [...] Procedure Name Priority Date/Time Associated Diagnosis Comments CT LUNG SCREENING Routine 04/10/2025 7:3 4 AM EDT Encounter for screening for malignant neoplasm of respiratory organs Nicotine dependence, cigarettes, uncomplicated EXTERNAL CLINICAL LAB 04/04/2025 EXTERNAL CLINICAL LAB 04/03/2025 EXTERNAL ULTRASOUND REPORT 04/02/2025 POC OCCULT BLOOD STOOL Routine 02/18/2025 10:33 AM EDT Encounter for screening fecal occult blood testing HEMOGLOBIN A1C Routine 01/13/2025 9:50 AM EDT Elevated glucose COMPREHENSIVE METABOLIC PANEL Routine 01/08/2025 3:39 PM EDT Other fatigue DIABETES EYE EXAM 08/02/2024 COLONOSCOPY Routine 06/17/2024 8:01 AM EST Personal history of colon polyps, unspecified LIPID PANEL Routine 05/12/2022 HEPATITIS C SCREENING Routine 11/08/2021 URINE ALBUMIN CREATININE RATIO Routine 08/02/2021 from Last 3 Months or Most Recently Relevant to Health Maintenance Results * CT Lung Screening (04/10/2025 7:34 AM EDT) Anatomical Region Laterality Modality Chest Computed Tomogra phy 04/15/2025 3:11 PM EDT Impressions 04/15/2025 3:23 PM EDT No suspicious mass or nodule. No suspicious interval change. LUNG RADS: Lung-RADS 1: NEGATIVE S Modifier (Significant or Potentially Significant Findings): None present Abnormalities in the liver appear similar to previous and have been evaluated with MRI in the past RECOMMENDATIONS: 12 month screening low dose CT -------- FINAL REPORT -------- Dictated By: Pedro Locke Dictated Date: 04/15/2025 15:11 ET Assigned Physician: Pedro Locke Reviewed and Electronically Signed By: Pedro Locke Signed Date: 04/15/2025 15:23 ET Workstation ID: [id number] Transcribed By: Self Edit Transcribed Date: 04/15/2025 15:11 ET Narrative 04/15/2025 3:23 PM EDT EXAMINATION: CT CHEST WITHOUT CONTRAST LUNG CANCER SCREENING, LOW DOSE CLINICAL INFORMATION: Lung cancer screening. Current smoker. COMPARISON: Portions of previous 04/08/24 TECHNIQUE: Multidetector CT. Examination of the chest. Examination of the chest without IV contrast. Reformatting in the coronal and sagittal planes. Device: [employer] VCT DLP: 182 mGy-cm CTDI: 4.83 Dose optimization was performed including the use of low-dose iterative reconstruction technique with automatic exposure control based on patient size. Type of contrast: None Volume of IV contrast: None Volume of contrast discarded: 0 mL FINDINGS: LUNG: No abnormality of the trachea or mainstem bronchi. LUNG NODULES: There are no suspicious nodules or masses. OTHER PULMONARY: There is some small airway thickening. There are no significant interstitial lung abnormalities. There is significant emphysema. MEDIASTINUM: There are no enlarged mediastinal or hilar lymph nodes. No suspicious abnormalities of the esophagus. CARDIAC: The heart is not enlarged. No pericardial fluid or thickening I suspect a stent in the LAD. VASCULAR: There is no thoracic aortic aneurysm. The main pulmonary artery is normal caliber PLEURA: There is no pleural fluid or pneumothorax AXILLA/CHEST WALL: There are no enlarged axillary lymph nodes. No chest wall mass demonstrated. VISUALIZED UPPER ABDOMEN: Multiple low attenuating liver lesions. These appear unchanged. The lowest images includes some contour deformity and low attenuation involving the lower aspect of the right lobe which appear unchanged. MUSCULOSKELETAL: No suspicious focal bony lesion demonstrated. Extensive bridging osteophytes and/or syndesmophytes in the spine. Procedure Note Pedro Locke MD - 04/15/2025 EXAMINATION: CT CHEST WITHOUT CONTRAST LUNG CANCER SCREENING, LOW DOSE CLINICAL INFORMATION: Lung cancer screening. Current smoker. COMPARISON: Portions of previous 04/08/24 TECHNIQUE: Multidetector CT. Examination of the chest. Examination of the chest without IV contrast. Reformatting in the coronal and sagittal planes. Device: [employer] VCT DLP: 182 mGy-cm CTDI: 4.83 Dose optimization was performed including the use of low-dose iterativereconstruction technique with automatic exposure control based on patientsize. Type of contrast: None Volume of IV contrast: None Volume of contrast discarded: 0 mL FINDINGS: LUNG: No abnormality of the trachea or mainstem bronchi. LUNG NODULES: There are no suspicious nodules or masses. OTHER PULMONARY: There is some small airway thickening. There are nosignificant interstitial lung abnormalities. There is significantemphysema. MEDIASTINUM: There are no enlarged mediastinal or hilar lymph nodes. Nosuspicious abnormalities of the esophagus. CARDIAC: The heart is not enlarged. No pericardial fluid or thickening I suspect a stent in the LAD. VASCULAR: There is no thoracic aortic aneurysm. The main pulmonary arteryis normal caliber PLEURA: There is no pleural fluid or pneumothorax AXILLA/CHEST WALL: There are no enlarged axillary lymph nodes. No chestwall mass demonstrated. VISUALIZED UPPER ABDOMEN: Multiple low attenuating liver lesions. Theseappear unchanged. The lowest images includes some contour deformity andlow attenuation involving the lower aspect of the right lobe which appearunchanged. MUSCULOSKELETAL: No suspicious focal bony lesion demonstrated. Extensivebridging osteophytes and/or syndesmophytes in the spine. IMPRESSION: No suspicious mass or nodule. No suspicious interval change. LUNG RADS: Lung-RADS 1: NEGATIVE S Modifier (Significant or Potentially Significant Findings): Nonepresent Abnormalities in the liver appear similar to previous and have beenevaluated with MRI in the past RECOMMENDATIONS: 12 month screening low dose CT -------- FINAL REPORT -------- Dictated By: Pedro Locke Dictated Date: 04/15/2025 15:11 ET Assigned Physician: Pedro Locke Reviewed and Electronically Signed By: Pedro Locke Signed Date: 04/15/2025 15:23 ET Workstation ID: [id number] Transcribed By: Self Edit Transcribed Date: 04/15/2025 15:11 ET Ana Broderick MD IMG CT PROCEDURES Final Result * External clinical lab (04/04/2025) Only the most recent of2 resultswithin the time period is included. Provider [facility] LAB BLOOD ORDERABLES Fin al Result * External Ultrasound Report (04/02/2025) Anatomical Region Laterality Modality Ultrasound Provider [facility] IMG US PROCEDURES Final Result * POC Fecal Immunochemical Testing (FIT) Screening or Diagnostic (02/18/2025 10:33 AM EDT) Fecal Occult Blood POC Negative Negative EXPIRATION DATE POC 10/21/25 POC Occult Blood 1 Int QC Pass? Yes Yes Stool Rectum structure / Unknown 02/18/2025 10:33 AM EDT [place] [facility] POINT OF CARE TEST ENTE R/EDIT ORDERABLES Final Result * Hemoglobin A1c (01/13/2025 9:50 AM EDT) Pathologist [facility] Hemoglobin A1C 5.8 <6.5 % LAB CHEMISTRY METHOD 01/13/2025 2:11 PM T [facility] Mean Bld Glu Estim. 120 mg/dL LAB CHEMISTRY METHOD 01/13/2025 2:11 PM T [facility] Blood Venous blood specimen / Unknown Venipuncture / Unknown 01/13/2025 9:50 AM EDT 01/13/2025 9:50 AM EDT [place] [facility] LAB BLOOD ORDERABLES Fi nal Result [facility] [address] [place] [address], * (ABNORMAL) Comprehensive metabolic panel (01/08/2025 3:39 PM EDT) [facility] Sodium 141 133 - 145 mmol/L LAB CHEMISTRY METHOD 01/08/2025 7:17 PM [facility] Potassium 3.6 3.5 - 5.5 mmol/L LAB CHEMISTRY METHOD 01/08/2025 7:17 PM [facility] Chloride 105 96 - 110 mmol/L LAB CHEMISTRY METHOD 01/08/2025 7:17 PM [facility] CO2 27 21 - 32 mmol/L LAB CHEMISTRY METHOD 01/08/2025 7:17 PM [facility] Anion Gap 9 3 - 11 LAB CHEMISTRY METHOD 01/08/2025 7:17 PM [facility] Glucose 169(H) 70 - 100 mg/dL LAB CHEMISTRY METHOD 01/08/2025 7:17 PM [facility] BUN 15 5 - 25 mg/dL LAB CHEMISTRY METHOD 01/08/2025 7:17 PM [facility] Creatinine 0.90 0.70 - 1.30 mg/dL LAB CHEMISTRY METHOD 01/08/2025 7:17 PM [facility] eGFR 98 >=60 mL/min/1. 73m2 LAB CHEMISTRY METHOD 01/08/2025 7:17 PM [facility] Comment:Calculation based on the Chronic Kidney Disease Epidemiology Collaboration (CKD-EPI) equation refit without adjustment for race. BUN/Creatinine Ratio 16.7 LAB CHEMISTRY METHOD 01/08/2025 7:17 PM [facility] Calcium 8.6 8.5 - 10.5 mg/dL LAB CHEMISTRY METHOD 01/08/2025 7:17 PM [facility] AST (SGOT) 25 10 - 42 unit/L LAB CHEMISTRY METHOD 01/08/2025 7:17 PM [facility] ALT (SGPT) 22 10 - 60 unit/L LAB CHEMISTRY METHOD 01/08/2025 7:17 PM [facility] Alkaline Phosphatase 143(H) 42 - 121 unit/L LAB CHEMISTRY METHOD 01/08/2025 7:17 PM [facility] Total Protein 6.7 6.0 - 8.0 g/dL LAB CHEMISTRY METHOD 01/08/2025 7:17 PM [facility] Albumin 3.5 3.2 - 5.0 g/dL LAB CHEMISTRY METHOD 01/08/2025 7:17 PM [facility] Total Bilirubin 0.4 0.0 - 1.4 mg/dL LAB CHEMISTRY METHOD 01/08/2025 7:17 PM [facility] Blood Venous blood specimen / Unknown Venipuncture / Unknown 01/08/2025 3:39 PM EDT 01/08/2025 3:39 PM EDT us Grace oDnis DO LAB BLOOD ORDERABLES Final Res ult [facility] [address] [place] [address], * Diabetes Eye Exam (08/02/2024) Provider [facility] MAINTENANCE Final Result * COLONOSCOPY Anesthesia - MAC; [facility] ENDOSCOPY (06/17/2024 8:01 AM EST) Anatomical [...] for surveillance. Narrative 06/17/2024 7:55 AM EST [facility] GI Patient Name: Katia Cuello Procedure Date: [...] retroflexion views. Procedure Code(s): --- Professional --- 32660, Colonoscopy, flexible; with removal of tumor(s), polyp(s), or other lesion(s) by snare technique Diagnosis Code(s): --- Professional --- Z86.010, Personal history of colonic polyps D12.0, Benign neoplasm of cecum D12.3, Benign neoplasm of transverse colon (hepatic flexure or splenic flexure) CPT copyright 2020 [employer]. All rights reserved. The codes documented in this report are preliminary and upon ops analyst review may be revised to meet current compliance requirements. Curly Fam MD 06/17/2024 7:55:29 AM This report has been signed electronically.Curly Fam MD Number of Addenda: 0 Note Initiated On: 06/17/2024 7:35 AM Scope In: Scope Out: Endoscopy Department at [facility] - [address] [place] [id number] Procedure Note Curly Fam MD - 06/17/2024 [facility] GI Patient Name: Katia Cuello Procedure Date: [...] retroflexion views. Procedure Code(s): --- Professional --- 18206, Colonoscopy, flexible; with removal of tumor(s), polyp(s), or other lesion(s) by snare technique Diagnosis Code(s): --- Professional --- Z86.010, Personal history of colonic polyps D12.0, Benign neoplasm of cecum D12.3, Benign neoplasm of transverse colon (hepatic flexure or splenic flexure) CPT copyright 2020 [employer]. All rights reserved. The codes documented in this report are preliminary and upon ops analyst reviewmay be revised to meet current compliance requirements. Curly Fam MD 06/17/2024 7:55:29 AM This report has been signed electronically.Curly Fam MD Number of Addenda: 0 Note Initiated On: 06/17/2024 7:35 AM Scope In: Scope Out: Endoscopy Department at [facility] - [address] [place] [phone] IMPRESSION: - One 10 mm polyp in [...] - Final * (ABNORMAL) Lipid panel (05/12/2022) LDL/HDL Ratio 4 0 - 4 Triglycerides 110 0 - 150 mg/dL Cholesterol 139 0 - 200 mg/dL HDL 32(A) >=40 mg/dL LDL Cholesterol 85 0 - 100 mg/dL Blood Venous blood specimen / Unknown Historical Provider LAB BLOOD ORDERABLES Doreen l Result * Hepatitis C Screening (11/08/2021) Hepatitis C Screening abstracted Historical Provider HEALTH MAINTENANCE Final Result * Urine Albumin Creatinine Ratio (08/02/2021) Urine Albumin Creatinine Ratio abstracted Historical Provider HEALTH MAINTENANCE Final Result from Last 3 Months or Most Recently Relevant to Health Maintenance Insurance [facility]) Care Teams Flexo Press Operator Relationship Specialty Start Date End Date Krys Norris MD [address] [place], [place] PCP - General Internal Medicine 03/26/25
--- OUTSIDE RECORDS SUMMARY | 2025-04-18 14:34 | XMS_ITS | Encounter Summary ---
Author Organization [facility] Address [address] [place] [address] Care Team Providers Care Asphalt Coater Name Role Phone Krys Norris MD Primary Care Provider [phone] Encounter Details Date Type Department Care Team (Late st Contact Info) Description 07/31/2024 Lab Requisition [facility] - Main Lab [address] [facility] [place] [address] Stephan Bear MD [address] [facility] [address] [place] [phone] Elevated prostate specific antigen (PSA) Social History [...] 8:00 AM EST Nutrition Bariatric Surgery - [place] 175 [facility] [address] [place] [address] FilibertoGarcia, Moraima, RD [address] [address] documented as of this encounter Procedures Procedure Name Priority Date/Time Associated Diagnosis Comments AP OUTSIDE CONSULT Routine 07/29/2024 Elevated prostate specific antigen (PSA) documented in this encounter Results * Anatomic pathology outside consult (07/29/2024) Final Diagnosis A. Prostate, Left Middle Vermilion (Core Biopsy): - Benign prostate tissue. B. Prostate, Left Lateral Vermilion (Core Biopsy): -PROSTATIC ACINAR ADENOCARCINOMA CONVENTIONAL (USUAL) TYPE -Winchester Score: (3+3=6) , Grade Group 1 Total Number of Cores: 1 Number of Positive Cores: 1 Percent of Prostatic Tissue Continuously Involved by Tumor: 5% C. Prostate, Left Middle Middle (Core Biopsy): - Benign prostate tissue. D. Prostate, Left Lateral Middle (Core Biopsy): -PROSTATIC ACINAR ADENOCARCINOMA CONVENTIONAL (USUAL) TYPE -Winchester Score: (3+3=6) , Grade Group 1 Total Number of Cores: 1 Number of Positive Cores: 1 Percent of Prostatic Tissue Continuously Involved by Tumor: 50% E. Prostate, Left Middle Base (Core Biopsy): - Benign prostate tissue. F. Prostate, Left Lateral Base (Core Biopsy): - Benign prostate tissue. G. Prostate, Right Middle Vermilion (Core Biopsy): -PROSTATIC ACINAR ADENOCARCINOMA CONVENTIONAL (USUAL) TYPE -Pa Score: (3+3=6) , Grade Group 1 Total Number of Cores: 1 Number of Positive Cores: 1 Percent of Prostatic Tissue Discontinuously Involved by Tumor: 60% H. Prostate, Right Lateral Vermilion (Core Biopsy): - Benign prostate tissue. I. [...] Biopsy): -PROSTATIC ACINAR ADENOCARCINOMA CONVENTIONAL (USUAL) TYPE -Winchester Score: (3+3=6) , Grade Group 1 Total Number of Cores: 1 Number of Positive Cores: 1 Percent of Prostatic Tissue Continuously Involved by Tumor: 0, 5% L. Prostate, Right Lateral Base (Core Biopsy): - Benign prostate tissue. M. Prostate, Right Peripheral Zone Lesion (Core Biopsy): -PROSTATIC ACINAR ADENOCARCINOMA CONVENTIONAL (USUAL) TYPE -Winchester Score: (4+3=7), Grade Group 3 -Percentage Pattern: 4: 75% Total Number of Cores: 3 (fragmented) Number of Positive Cores: 3 (fragmented) Percent of Prostatic Tissue Continuously Involved by Tumor: 30% of multiple fragmented cores 08/08/2024 12:18 PM [facility] Comment E, F, G, H) PIN4 immunohistology supports the morphological diagnosis. PIN4 performed at [facility], [address], [place] [address], CLIA # [id number] 08/08/2024 12:18 PM [facility] Clinical Information Elevated PSA Last PSA total = 4.9 (2023) [id number] 08/08/2024 12:18 PM [facility] Gross Description A. Prostate, Left Mid Vermilion Biopsy: Received, properly labeled, are two H and E stained slides and two unstained slides. B. Prostate, Left Lat Vermilion Biopsy: Received, properly labeled, are two H [...] two unstained slides. G. Prostate, Right Mid Vermilion Biopsy: Received, properly labeled, are two H and E stained slides and two unstained slides. H. Prostate, Right Lat Vermilion Biopsy: Received, properly labeled, are two H [...] unstained slides. /al 08/08/2024 12:18 PM EST [facility] Disclaimer Unless otherwise specified, all tissue is 10% NB formalin fixed and paraffin embedded. Technical pathology services provided by [facility] at [address], [place] [address] (CLIA #[id number]/Hortensia Lopez MD, Candy Mixer) 08/08/2024 12:18 PM EST [facility] Tissue Prostate / Unknown 07/29/20242024 [...] Bear MD LAB PATHOLOGY ORDERABLES Final Result [facility] [address] [place] [address], documented in this encounter Visit Diagnoses Diagnosis Elevated prostate specific antigen (PSA) documented in this encounter Additional Health Concerns Infection Onset Date Last Indicated Resolved Time COVID-19 08/15/2024 08/15/2024 09/14/2024 7:04 PM EST documented as of this encounter Care Teams Asphalt Coater Relationship Specialty Start Date End Date Krys Norris MD [address] [place] [address] PCP - General Internal Medicine 03/26/25 documented as of this encounter
--- OUTSIDE RECORDS SUMMARY | 2025-04-18 14:34 | XMS_ITS | Continuity of Care Document ---
Author Organization [facility] Address [address] [place], [place] Phone [phone] Care Team Providers Care Manager Insurance Name Role Phone Lavelle Helton MD Care Team Information Training Program Developer Unavailable MARLEEN HENDERSON M.D. Care Team Information [...] Indications Order ing Provider Date Metformin HCL AV252sv Tablets ER 24HR 1 tab by mouth twice a day 180tabs R73.03 Marleen Henderson M.D. 01/31/2025 Xwftcfko8xv/0.5ML Solution Auto-Inject administer 5 mg under the skin 1 time a week(off awaiting PA) 6ml Marleen Henderson M.D. 08/12/2024 BD Pen Needle/Mini/Ultra-Fin e/31G X 5mm31G X 5 mm Misc use 1 needle a day 30units E88.81 Marleen Henderson M.D. 05/06/2022 Plrswdz42zr Chewtabs take 1 tablet by mouth every day 90units Marleen Henderson M.D. 11/14/2018 Levothyroxine Yxztta35ryf Tablets Take 1 Tablet by mouth Daily 90tabs Marleen Henderson M.D. 07/05/2018 Metoprolol Succinate ER50mg Tablets ER 24HR TK 1 T PO qd->1/2 a day(07/2022)->1/d()->1/2(2023) Unknown Testosterone Yxjbpnvcs448fg/ml Solution 0.5 cubic centimeters injection every week 2ml Unknown Licorice for sugar Unknown Berberine Unknown Fish Oil Unknown Vit D 2000iu/d Unknown Vitamin [id number] Tablets 1 by mouth every day Unknown Ckydwypls9vu Tablets Take 1 Tablet By Mouth Daily Unknown Metamucil off lately Unknown 0 Combivent Vfpxpgda03-854crg/Act Aerosol Unknown Paroxetine HCL ER25mg Tablets ER 24HR Unknown Atorvastatin Ljuuchm85qn Tablets 1/2 by mouth every day 90tabs Unknown Pejgtkawgj0sb Tablets as needed Unknown History Medications Zepbound2.5mg/0.5ML Solution Auto-Inject inject 2.5mg subcutaneously once a week 2ml Marleen Henderson M.D. 07/23/2024 - 08/12/2024 Yykeqnbz6rt/0.5ML Solution Auto-Inject administer 5 mg under the skin 1 time a week 2ml Marleen Henderson M.D. 03/27/2024 - 07/23/2024 Zepbound2.5mg/0.5ML Solution Auto-Inject inject 2.5mg subcutaneously once a week 2ml Marleen Henderson M.D. 03/21/2024 - 03/27/2024 Xsvgcysw4aw/0.5ML Solution Auto-Inject administer 5 mg under the skin 1 time a week 2ml Marleen Henderson M.D. 03/06/2024 - 03/21/2024 Zepbound2.5mg/0.5ML Solution Auto-Inject inject 2.5mg subcutaneously once a week 2ml Marleen Henderson M.D. 02/14/2024 - 03/06/2024 Mounjaro2.5mg/0.5ML Solution Pen-Inject inject 2.5mg subcutaneously q1week 2ml Marleen Henderson M.D. 02/12/2024 - 02/14/2024 Gcjqundgv52ak Tablets 1 tab by mouth every day 90tabs E88.8 10 Marleen Henderson M.D. 09/29/2023 - 09/29/2023 Umdgpjmtf52dl Tablets 1 tab by mouth every day 90tabs Marleen Henderson M.D. 05/18/2023 - 04/23/2024 Vitamin H1168hcj (5000 Ut) Capsules 1 tab by mouth every day 90caps E55.9 Marleen Henderson M.D. 09/21/2022 - 05/17/2023 Clonidine HCL0.1mg Tablets take 1 tablet by mouth at bedtime as directed 90tabs I10 Marleen Henderson M.D. 08/12/2022 - 05/17/2023 Codybjo54wo/3ML Solution Pen-Inject inject 0.6 cubic centimeters injection subcutaneous every day 15ml E88.8 1 Marleen Henderson M.D. 05/06/2022 - 08/12/2022 Testosterone Ltbmxvcux633oi/ml Solution inject 0.3ml(60mg) Im every week 10ml E29.1 Marleen Henderson M.D. 02/24/2022 - 01/11/2023 BD TB Syringe 25GX5/8 Use One syringe Every Week 10units Marleen Henderson M.D. 02/24/2022 - 05/17/2023 Tnzujfbxrg38vx Tablets 1 tab by mouth every day 90tabs I10 Marleen Henderson M.D. 02/04/2022 - 05/17/2023 Lvdpblzohp0go Tablets 1 by mouth every day 90tabs [...] 1 Marleen Henderson M.D. 02/12/2021 - 04/28/2021 Mijhjyymt3vw/24HR Patches 24HR apply 1 patch daily 30units E29.1 Marleen Henderson M.D. 02/12/2021 - 07/08/2021 Testosterone Ibaspkfbp822ga/ml Solution 0.5 cubic centimeters injection every week 2ml E29.1 Marleen Henderson M.D. 11/13/2020 - 02/12/2021 BD TB Syringe 25GX5/8 Use One Every Week 4units Marleen Henderson M.D. 11/13/2020 - 02/12/2021 Ozempic (1 MG/Dose)2mg/1.5ML Solution Pen-Inject 1mg subcutaneously every week 9ml E88.8 1 Marleen Henderson M.D. 11/13/2020 - 02/03/2021 Uxsinrcji9rr/24HR Patches 24HR apply 1 patch daily 30units Marleen Henderson M.D. 09/14/2020 - 11/13/2020 Ozempic (0.25 Or 0.5 MG/Dose)2mg/1.5ML Solution Pen-Inject 0.5 mg sub cutaneously every week 1.500ml E88.8 1 Marleen Henderson M.D. 08/14/2020 - 11/13/2020 Sxwdaosmf6so/24HR Patches 24HR apply 2 patch daily 60units E29.1 Marleen Henderson M.D. 05/01/2020 - 08/14/2020 Ozempic (0.25 Or 0.5 MG/Dose)2mg/1.5ML Solution Pen-Inject 0.25 mg sub cutaneously every week m5koshw then 0.5/week as tolerated 1.500ml E88.8 1 Marleen Henderson M.D. 05/01/2020 - 08/14/2020 BD TB Syringe 25GX5/8 Use One Every Week 15units Marleen Henderson M.D. 10/02/2019 - 08/14/2020 Metformin HCL XA244mi Tablets ER 24HR 1 by mouth every day 90tabs Marleen Henderson M.D. 08/19/2019 - 04/22/2020 Testosterone Mbuzlzazi298jb/ml Solution 0.3 cubic centimeters injection every week 2ml E29.1 Marleen Henderson M.D. 08/16/2018 - 08/14/2020 1ML Syringe/Needle Slip Tip 25GX5/8 Sub-Q25G X 5/8 1 ML Misc use one every 1 weeks 15units E29.1 Marleen Henderson M.D. 08/16/2018 - 02/03/2021 Levothyroxine Gdmefn75uwh Tablets Take 1 Tablet Daily 90tabs Marleen Henderson M.D. 06/04/2018 - 07/05/2018 Zhouirya51.5mg/2.5GM (1.62%) Gel 1 apply packets to skin daily as directed 90pkt E29.1 Marleen Henderson M.D. 05/25/2018 - 05/28/2018 Jvsryjkx25.25mg/1.25GM (1.62%) Gel place 2 packets onto skin a day(one month supply=2 boxes of 30pkt each) 112.5gm E29.1 Marleen Henderson M.D. 05/22/2018 - 07/05/2018 Trulicity0.75mg/0.5ML Solution Pen-Inject 0.75 mg subcutaneous every week 2ml Marleen Henderson M.D. 02/16/2018 - 07/05/2018 BD Pen Needle/Mini/Ultrafine/31G X 3/16 31G X 5 mm Misc 1 unit every day 100units Marleen Henderson M.D. 12/07/2017 - 07/06/2018 [facility] Ivcugfh43wj Chewtabs Take 1 Tablet By Mouth Every Day 30units Marleen Henderson M.D. 11/24/2017 - 11/14/2018 Hswfbvg17fn/3ML Solution Pen-Inject 1 injection every day. E66.8 4units E88.8 1 Marleen Henderson M.D. 11/23/2017 - 02/09/2018 R73.03 E66.8 Metformin HCL SE638vm Tablets ER 24HR 1 tab by mouth every day 90tabs E88.81 Marleen Henderson M.D. 09/28/2017 - 11/20/2017 Paroxetine HCL ER25mg Tablets ER 24HR 1/d Unknown - 05/06/2022 Hruggqoviows239bf Tablets 2 Tablets Today, Then 1 Tablet Daily Unknown - 09/28/2017 Paroxetine HCL ER12.5mg Tablets ER 24HR 1/d Unknown - 08/14/2020 Bupropion Hydrochloride ER (XL)150mg Tablets ER 24HR 1/d with 264=429/d Unknown - 05/01/2020 Levothyroxine Lycwov30wkv Tablets 1 by mouth every day Unknown - 06/04/2018 Testosterone Ozqkovngb353ch/ml Solution Unknown - 07/05/2018 Gsxvmut53qy Chewtabs Take 1 Tablet By Mouth Every Day 30units Marleen Henderson M.D. - 11/24/2017 LamictalTablets Unknown - 12/25/2017 Paroxetine FIF07vu Tablets TK 1 T PO qd Unknown - 09/28/2017 Wwlnqcfqeb92ec Tablets TK 2 TS PO D For 3 Days Unknown - 09/28/2017 Repatha Fxajyqqmr714rs/ml Solution Auto-Inject Unknown - 01/30/2025 Bupropion Hydrochloride ER (XL)150mg Tablets ER 24HR 2/d Unknown - 02/12/2021 Atorvastatin Hrovtcl09sx Tablets 1 by mouth every day 90tabs Unknown - 05/17/2023 Paroxetine HCL ER37.5mg Tablets ER 24HR 1/d Unknown - 05/17/2023 Vdknymgh320xx Suspension Rec Unknown - 01/30/2025 Fxqaaybemk392jm Tablets Unknown - 01/30/2025 Rglihbvs51eg Tablets Unknown - 04/05/2024 Metoprolol Succinate ER50mg Tablets ER 24HR Unknown - 05/17/2023 Naszomvci901-5.5mcg/Ac t Aerosol Unknown - 01/30/2025 Mclndvduaq69zc Tablets Take 1 Tablet By Mouth Every Day Unknown - 01/27/2023 Vit B12 Inections 1000mg x2 injections a week([employer]) Unknown - 01/30/255 Xkmpluhksvzs15qo Capsules Unknown - 09/28/2017 Bupropion HCL ER (XL)300mg Tablets ER 24HR 1/d with 150-450/d Unknown - 05/01/2020 Escitalopram Agekfor1as Tablets Unknown - 09/28/2017 Nitroglycerin0.4mg Tablets Noemi Finley MD - 09/28/2017 Testosterone Eomhqzect176rn/ml Solution Unknown - 09/28/2017 Levothyroxine Bftpen88sik Tablets 1 take tablet once daily 90tabs Marleen Henderson M.D. - 02/09/2018 Xemgzdfzwst37fe Tablets Unknown - 09/28/2017 Doxycycline Ykgefio619sh Capsules Unknown - 09/28/2017 Phenazopyridine WDX951ii Tablets Unknown - 09/28/2017 Yykxkjpsfke289fb Tablets TK 1 T PO bid Unknown - 09/28/2017 Sulfacetamide Imyuir33% Solution Unknown - 09/28/2017 Paroxetine ZED30zs Tablets Take 1 Tablet By Mouth Every Day Unknown - 09/28/2017 Ketorolac Gootzqmpcwju69ln Tablets Unknown - 09/28/2017 Paroxetine CBF12sb Tablets Unknown - 09/28/2017 Ventolin AIE247(90Base) mcg/Act Aerosol Inl 2 Puffs PO Q 4 H PRF Wheezing Unknown - 09/28/2017 Paroxetine NCF15sa Tablets Unknown - 09/28/2017 Bupropion HCL ER (SR)100mg Tablets ER 12HR Unknown - 11/20/2017 Trazodone LJT41ak Tablets Unknown - 09/28/2017 Isosorbide Dinitrate ER40mg Tablets ER Take 1 Tablet Once A Day Unknown - 09/28/[address] Take One Capsule By Mouth Every Day Unknown - 09/28/2017 Naltrexone XVO04iy Tablets Once A Day Unknown - 09/28/[address] TK 2 TS PO tid Unknown - 09/28/2017
== END ==
LOC: HO.CARD 13:19
PROVIDERS: PCP Internal Medicine; Visit Provider Internal Medicine
DX: I50.9 Heart failure, unspecified (principal)
CPT/HCPCS: 93306

== ENCOUNTER → 2025-04-18 13:21 | Outpatient (BNV) | payer BC, SELFPAY ==
[2023-07-06 13:38] VITALS: BP 124/54; BP 124/68; BP 130/64; BMI 36.3
== END ==
PROVIDERS: PCP Internal Medicine; Visit Provider Internal Medicine Cardiovascular Disease
DX: I50.9 Heart failure, unspecified (principal); I51.7 Cardiomegaly
CPT/HCPCS: 93306

== ENCOUNTER → 2025-05-02 08:00 | Outpatient (REF) | payer BC, SELFPAY ==
[2023-07-06 13:38] VITALS: BP 124/54; BP 124/68; BP 130/64; BMI 36.3
--- NOTE | ~2025-05-02 | NM_ITS ---
Lexiscan Myocardial perfusion study Indication: Chest pain to evaluate for myocardial ischemia Technique: The patient was brought in for a Lexiscan perfusion study on 05/02/2025 and was injected 0.4 mg of Lexiscan intravenously. Within a minute of this injection 45 mCi of sestamibi was given intravenously. Images were obtained using the SPECT gamma camera interlaced with the gating device. Images were obtained in supine position. Resting perfusion study was performed on 05/06/2025. Patient was administered 45 mCi of sestamibi intravenously at rest. Images were then obtained in supine position. Images obtained without without CT attenuation. Total DLP 130 mGy-cm Images were processed with the software and compared side to side in short axis, horizontal long axis and vertical long axis views. Findings: The stress perfusion study showed nonattenuated images show mildly to moderately reduced uptake in the inferior and inferolateral wall of the LV myocardium. Remainder of the LV myocardium is normally perfused. Attenuated corrected images show mildly reduced uptake in the apex of the LV myocardium.. The gated study shows normal LV systolic function with calculated LVEF of 55%. LV cavity is normal in size. The gated study shows normal systolic wall thickening and contraction of segments. Resting study shows no change in perfusion pattern compared to stress perfusion study. Gating at rest reveals normal systolic wall motion with ejection fraction at 51%. The findings are consistent with no reversible defect suggestive of ischemia. Likely normal myocardial perfusion. NM/NM cardiolite stress test Impression: 1. Myocardial perfusion imaging study shows normal myocardial perfusion 2. Gated LVEF is 55% 3. Transient ischemic dilatation not present Nondiagnostic changes on EKG. Electronically signed by: Heriberto Serna MD 05/06/2025 12:37 PM EDT
--- OUTSIDE RECORDS SUMMARY | 2025-05-02 08:02 | XMS_ITS | Clinical Summary ---
Author Organization [facility] Address [address] [place] [address] Care Team Providers Care Down Filler Name Role Phone System, Provider Not In [...] patient's age to complete this topic Insurance [facility] - PPO Care Teams Down Filler Relationship Specialty Start Date End Date System, Provider Not In PCP - General 12/17/23
--- OUTSIDE RECORDS SUMMARY | 2025-05-02 08:02 | XMS_ITS | Continuity of Care Document ---
Author Organization [facility] Address [address] [facility] [address] [place], [place] Phone [phone] Care Team Providers Care Sandblaster Paint Sprayer Name Role Phone Lavelle Helton MD Care Team Information Timber Sprinkler Unavailable MARLEEN HENDERSON M.D. Care Team Information [...] Indications Order ing Provider Date Metformin HCL BX410wd Tablets ER 24HR 1 tab by mouth twice a day 180tabs R73.03 Marleen Henderson M.D. 01/31/2025 Pgathcph7ax/0.5ML Solution Auto-Inject administer 5 mg under the skin 1 time a week(off awaiting PA) 6ml Marleen Henderson M.D. 08/12/2024 BD Pen Needle/Mini/Ultra-Fin e/31G X 5mm31G X 5 mm Misc use 1 needle a day 30units E88.81 Marleen Henderson M.D. 05/06/2022 Wzeyoue53rs Chewtabs take 1 tablet by mouth every day 90units Marleen Henderson M.D. 11/14/2018 Levothyroxine Qbkril51khd Tablets Take 1 Tablet by mouth Daily 90tabs Marleen Henderson M.D. 07/05/2018 Metoprolol Succinate ER50mg Tablets ER 24HR TK 1 T PO qd->1/2 a day(07/2022)->1/d()->1/2(2023) Unknown Testosterone Antwazudw611jq/ml Solution 0.5 cubic centimeters injection every week 2ml Unknown Licorice for sugar Unknown Berberine Unknown Fish Oil Unknown Vit D 2000iu/d Unknown Vitamin O448369dsx Tablets 1 by mouth every day Unknown Depbuwvjc5wz Tablets Take 1 Tablet By Mouth Daily Unknown Metamucil off lately Unknown 0 Combivent Eprojser93-275rus/Act Aerosol Unknown Paroxetine HCL ER25mg Tablets ER 24HR Unknown Atorvastatin Atmuwjl47dw Tablets 1/2 by mouth every day 90tabs Unknown Gfqqzbqzje9bn Tablets as needed Unknown History Medications Zepbound2.5mg/0.5ML Solution Auto-Inject inject 2.5mg subcutaneously once a week 2ml Marleen Henderson M.D. 07/23/2024 - 08/12/2024 Klzbanop4ew/0.5ML Solution Auto-Inject administer 5 mg under the skin 1 time a week 2ml Marleen Henderson M.D. 03/27/2024 - 07/23/2024 Zepbound2.5mg/0.5ML Solution Auto-Inject inject 2.5mg subcutaneously once a week 2ml Marleen Henderson M.D. 03/21/2024 - 03/27/2024 Uehclkrs3me/0.5ML Solution Auto-Inject administer 5 mg under the skin 1 time a week 2ml Marleen Henderson M.D. 03/06/2024 - 03/21/2024 Zepbound2.5mg/0.5ML Solution Auto-Inject inject 2.5mg subcutaneously once a week 2ml Marleen Henderson M.D. 02/14/2024 - 03/06/2024 Mounjaro2.5mg/0.5ML Solution Pen-Inject inject 2.5mg subcutaneously q1week 2ml Marleen Henderson M.D. 02/12/2024 - 02/14/2024 Ifziybgoh22ak Tablets 1 tab by mouth every day 90tabs E88.8 10 Marleen Henderson M.D. 09/29/2023 - 09/29/2023 Xaijuxypg37uv Tablets 1 tab by mouth every day 90tabs Marleen Henderson M.D. 05/18/2023 - 04/23/2024 Vitamin I4804klt (5000 Ut) Capsules 1 tab by mouth every day 90caps E55.9 Marleen Henderson M.D. 09/21/2022 - 05/17/2023 Clonidine HCL0.1mg Tablets take 1 tablet by mouth at bedtime as directed 90tabs I10 Marleen Henderson M.D. 08/12/2022 - 05/17/2023 Nkwytxt90ja/3ML Solution Pen-Inject inject 0.6 cubic centimeters injection subcutaneous every day 15ml E88.8 1 Marleen Henderson M.D. 05/06/2022 - 08/12/2022 Testosterone Vsrzeybpz657sp/ml Solution inject 0.3ml(60mg) Im every week 10ml E29.1 Marleen Henderson M.D. 02/24/2022 - 01/11/2023 BD TB Syringe 25GX5/8 Use One syringe Every Week 10units Marleen Henderson M.D. 02/24/2022 - 05/17/2023 Olxenptcqy05gg Tablets 1 tab by mouth every day 90tabs I10 Marleen Henderson M.D. 02/04/2022 - 05/17/2023 Ufbhdbhrrh3ju Tablets 1 by mouth every day 90tabs [...] 1 Marleen Henderson M.D. 02/12/2021 - 04/28/2021 Ymkhalpzo8vi/24HR Patches 24HR apply 1 patch daily 30units E29.1 Marleen Henderson M.D. 02/12/2021 - 07/08/2021 Testosterone Fihqsfegr291no/ml Solution 0.5 cubic centimeters injection every week 2ml E29.1 Marleen Henderson M.D. 11/13/2020 - 02/12/2021 BD TB Syringe 25GX5/8 Use One Every Week 4units aMrleen Henderson M.D. 11/13/2020 - 02/12/2021 Ozempic (1 MG/Dose)2mg/1.5ML Solution Pen-Inject 1mg subcutaneously every week 9ml E88.8 1 Marleen Henderson M.D. 11/13/2020 - 02/03/2021 Kpidanyzo6cw/24HR Patches 24HR apply 1 patch daily 30units Marleen Henderson M.D. 09/14/2020 - 11/13/2020 Ozempic (0.25 Or 0.5 MG/Dose)2mg/1.5ML Solution Pen-Inject 0.5 mg sub cutaneously every week 1.500ml E88.8 1 Marleen Henderson M.D. 08/14/2020 - 11/13/2020 Ydbhvxvvr4dy/24HR Patches 24HR apply 2 patch daily 60units E29.1 Marleen Henderson M.D. 05/01/2020 - 08/14/2020 Ozempic (0.25 Or 0.5 MG/Dose)2mg/1.5ML Solution Pen-Inject 0.25 mg sub cutaneously every week t7xitgi then 0.5/week as tolerated 1.500ml E88.8 1 Marleen Henderson M.D. 05/01/2020 - 08/14/2020 BD TB Syringe 25GX5/8 Use One Every Week 15units Marleen Henderson M.D. 10/02/2019 - 08/14/2020 Metformin HCL YZ079ou Tablets ER 24HR 1 by mouth every day 90tabs Marleen Henderson M.D. 08/19/2019 - 04/22/2020 Testosterone Wigdbbfrm611qf/ml Solution 0.3 cubic centimeters injection every week 2ml E29.1 Marleen Henderson M.D. 08/16/2018 - 08/14/2020 1ML Syringe/Needle Slip Tip 25GX5/8 Sub-Q25G X 5/8 1 ML Misc use one every 1 weeks 15units E29.1 Marleen Henderson M.D. 08/16/2018 - 02/03/2021 Levothyroxine Omfnzs26ebn Tablets Take 1 Tablet Daily 90tabs Marleen Henderson M.D. 06/04/2018 - 07/05/2018 Efuxpoes29.5mg/2.5GM (1.62%) Gel 1 apply packets to skin daily as directed 90pkt E29.1 Marleen Henderson M.D. 05/25/2018 - 05/28/2018 Wmheacwg98.25mg/1.25GM (1.62%) Gel place 2 packets onto skin a day(one month supply=2 boxes of 30pkt each) 112.5gm E29.1 Marleen Henderson M.D. 05/22/2018 - 07/05/2018 Trulicity0.75mg/0.5ML Solution Pen-Inject 0.75 mg subcutaneous every week 2ml Marleen Henderson M.D. 02/16/2018 - 07/05/2018 BD Pen Needle/Mini/Ultrafine/31G X 3/16 31G X 5 mm Misc 1 unit every day 100units Marleen Henderson M.D. 12/07/2017 - 07/06/2018 [facility] Oyradth82ul Chewtabs Take 1 Tablet By Mouth Every Day 30units Marleen Henderson M.D. 11/24/2017 - 11/14/2018 Uozrzic56lz/3ML Solution Pen-Inject 1 injection every day. E66.8 4units E88.8 1 Marleen Henderson M.D. 11/23/2017 - 02/09/2018 R73.03 E66.8 Metformin HCL CZ819ad Tablets ER 24HR 1 tab by mouth every day 90tabs E88.81 Marleen Henderson M.D. 09/28/2017 - 11/20/2017 Paroxetine HCL ER25mg Tablets ER 24HR 1/d Unknown - 05/06/2022 Lpafwizxhybx463kj Tablets 2 Tablets Today, Then 1 Tablet Daily Unknown - 09/28/2017 Paroxetine HCL ER12.5mg Tablets ER 24HR 1/d Unknown - 08/14/2020 Bupropion Hydrochloride ER (XL)150mg Tablets ER 24HR 1/d with 411=709/d Unknown - 05/01/2020 Levothyroxine Uamufq49grl Tablets 1 by mouth every day Unknown - 06/04/2018 Testosterone Pxxuspqyg225qc/ml Solution Unknown - 07/05/2018 Apqbusf21oz Chewtabs Take 1 Tablet By Mouth Every Day 30units Marleen Henderson M.D. - 11/24/2017 LamictalTablets Unknown - 12/25/2017 Paroxetine NWK56rw Tablets TK 1 T PO qd Unknown - 09/28/2017 Odufayuslz18dr Tablets TK 2 TS PO D For 3 Days Unknown - 09/28/2017 Repatha Vuexrukra276or/ml Solution Auto-Inject Unknown - 01/30/2025 Bupropion Hydrochloride ER (XL)150mg Tablets ER 24HR 2/d Unknown - 02/12/2021 Atorvastatin Eemxucl35ia Tablets 1 by mouth every day 90tabs Unknown - 05/17/2023 Paroxetine HCL ER37.5mg Tablets ER 24HR 1/d Unknown - 05/17/2023 Fsvrpxwb707rj Suspension Rec Unknown - 01/30/2025 Vxcpexvncj494hr Tablets Unknown - 01/30/2025 Tnxzrmzz48gk Tablets Unknown - 04/05/2024 Metoprolol Succinate ER50mg Tablets ER 24HR Unknown - 05/17/2023 Jswkidcvt682-6.5mcg/Ac t Aerosol Unknown - 01/30/2025 Iqqpdposnf20eh Tablets Take 1 Tablet By Mouth Every Day Unknown - 01/27/2023 Vit B12 Inections 1000mg x2 injections a week([employer]) Unknown - 01/30/255 Jbsfsebiqppn73ll Capsules Unknown - 09/28/2017 Bupropion HCL ER (XL)300mg Tablets ER 24HR 1/d with 150-450/d Unknown - 05/01/2020 Escitalopram Pqvzfnk7cn Tablets Unknown - 09/28/2017 Nitroglycerin0.4mg Tablets Noemi Finley MD - 09/28/2017 Testosterone Mreqdefwp980wz/ml Solution Unknown - 09/28/2017 Levothyroxine Hnwgow33ifj Tablets 1 take tablet once daily 90tabs Marleen Henderson M.D. - 02/09/2018 Pejkanvykde99di Tablets Unknown - 09/28/2017 Doxycycline Ocbfekb846nd Capsules Unknown - 09/28/2017 Phenazopyridine EDT533ym Tablets Unknown - 09/28/2017 Wqbniiekkwo763qp Tablets TK 1 T PO bid Unknown - 09/28/2017 Sulfacetamide Bxkeyv96% Solution Unknown - 09/28/2017 Paroxetine ZHI69lb Tablets Take 1 Tablet By Mouth Every Day Unknown - 09/28/2017 Ketorolac Bldhnmanjlqm82je Tablets Unknown - 09/28/2017 Paroxetine TXO57ag Tablets Unknown - 09/28/2017 Ventolin VBU698(90Base) mcg/Act Aerosol Inl 2 Puffs PO Q 4 H PRF Wheezing Unknown - 09/28/2017 Paroxetine OCX34ci Tablets Unknown - 09/28/2017 Bupropion HCL ER (SR)100mg Tablets ER 12HR Unknown - 11/20/2017 Trazodone RQR35wq Tablets Unknown - 09/28/2017 Isosorbide Dinitrate ER40mg Tablets ER Take 1 Tablet Once A Day Unknown - 09/28/[address] Take One Capsule By Mouth Every Day Unknown - 09/28/2017 Naltrexone TFB43tz Tablets Once A Day Unknown - 09/28/[address] TK 2 TS PO tid Unknown - 09/28/2017
--- NOTE | 2025-05-02 08:05 | CA_ITS ---
Acquisition Time: 2025-05-02 08:10:57 Total Exercise Time: 00:02:00 Test Indications: CP Medications: SEE H&P Protocol: LEXISCAN Max HR: 104 BPM 65% of Pred: 160 BPM Max BP: 110/78 mmHG Max Work Load: 1.6 METS Pharmacological stress test with Lexiscan injection, while walking slow on treadmill, with report of lightheadedness, with rare isolated PVC, with drop in BP post injection to 84/54, with nondiagnostic EKG for ischemia. In recovery he was treated with 250cc normal saline, caffinated cola and Aminophylline 75mg IVP to reverse Lexiscan. BP improved to 106/64, near baseline of 110/78 and lightheadedness resolved. Nuclear images pending. Test reviewed with Dr Serna Referred By: Andrea Hernandez Electronically Signed By: ARIAN LOPEZ
== END ==
LOC: HO.CARD 08:00
PROVIDERS: PCP Internal Medicine; Visit Provider Internal Medicine
DX: R07.9 Chest pain, unspecified (principal)
CPT/HCPCS: 78452; 93017; A9500; J0280; J2785

== ENCOUNTER → 2025-05-02 08:05 | Outpatient (BNV) | payer BC, SELFPAY ==
[2023-07-06 13:38] VITALS: BP 124/54; BP 124/68; BP 130/64; BMI 36.3
== END ==
PROVIDERS: PCP Internal Medicine; Visit Provider Nurse Practitioner Family
DX: I49.3 Ventricular premature depolarization (principal)
CPT/HCPCS: 78452; 93016; 93018

== ENCOUNTER 2025-06-05 15:02 | Outpatient (AMB) | payer BC, SELFPAY ==
[2023-07-06 13:38] VITALS: BP 124/54; BP 124/68; BP 130/64; BMI 36.3
--- NOTE | 2025-06-05 15:41 | A.OFFVIS_ITS ---
Vital Signs 06/05/25 15:42 Height 6 ft Weight 268 lb 15.423 oz BMI 36.5 BP 126/60 Blood Pressure Location Lt brachial Position Sitting Pulse 64 Pulse Source Pulse Oximeter Intake Visit Reasons: 3 mth fu after abhay- (NS Diploma Medical Assistant Required: No Accompanied by: Self / Same As Patient Allergies codeine Allergy (Unknown, Verified 06/05/25 15:44) unknown mint Allergy (Unknown, Verified 06/05/25 15:44) unknown amoxicillin (From Augmentin) Allergy (Verified 06/05/25 15:44) Unknown clavulanic acid (From Augmentin) Allergy (Verified 06/05/25 15:44) Unknown Medication List - Last Reconciled 06/05/25 by Sandrine Jeffers NP-C alprazolam 1 mg PO BID PRN aspirin 81 mg PO DAILY atorvastatin 40 mg PO BEDTIME duloxetine 30 mg PO DAILY ipratropium-albuterol 0.5 mg-3 mg(2.5 mg base)/3 mL 3 mL inhalation Q6H PRN levothyroxine (Synthroid) 75 mcg PO DAILY metoprolol succinate ER 50 mg PO HPI HPI 3 mth fu after abhay- (NS: Details: Delta is a 59-year-old male with past medical history of smoking, hyperlipidemia, sleep apnea with CPAP use, NSTEMI, cardiac catheterization with LAD stenosis, stent placed who reported chest tightness last visit and underwent an echocardiogram and nuclear stress test and now presents for follow-up. Today he reports he has been feeling better with no recurrent chest tightness. He has no chest discomfort at rest or with exertion. He denies shortness of breath, PND, orthopnea. He will get some mild ankle edema at times. No heart palpitations, lightheadedness, presyncope, syncope. He reports good activity tolerance and continues to work full-time. Taking meds as directed. [facility] Medical History Prostate cancer MAGALIS on CPAP Smoking Hypothyroidism Depression GERD (gastroesophageal reflux disease) Surgical History History of prostatectomy Family History Father Myocardial infarction Social History Household Members: Significant Other and Family Housing: House Do you presently have visiting nurse or other home services: No Alcohol intake: never Patient Tobacco Use Status: Former Tobacco user Tobacco use type: Cigarette Cigarette Packs Per Day: 0 Cigarettes Per Day: 3 Years Smoked: 10 service: No Review of Systems Const All systems reviewed & are unremarkable except as noted in HPI and below Denies daytime sleepiness, Denies difficulty sleeping, Denies snoring, Denies stops breathing during sleep and Denies weakness Card Denies chest pain, Denies rapid heart rate, Denies irregular heart rhythm, Denies claudication, Denies leg edema, Denies lightheadedness, Denies palpitations, Denies dyspnea, Denies dyspnea on exertion, Denies orthopnea, Denies paroxysmal nocturnal dyspnea and Denies slow heart rate Resp Denies cough, Denies dyspnea, Denies dyspnea on exertion and Denies snoring GI Denies no additional complaints, Denies hematochezia, Denies change in stool character and Denies dyspepsia Musc Denies abnormal gait, Denies muscle weakness and Denies numbness Neuro Denies abnormal gait, Denies numbness and Denies weakness Endo Denies palpitations Physical Exam Vital Signs: Last Vital Signs Pulse 64 06/05/25 15:42 BP 126/60 06/05/25 15:42 BMI result Body Mass Index 36.5 Const General: cooperative, healthy appearing, comfortable and no acute distress Orientation/consciousness: patient oriented x3 Neck Neck: Yes normal visual inspection Resp Effort & Inspection: normal respiratory effort Auscultation: clear to auscultation bilaterally, no rales, no rhonchi and no wheezes Cardio Rate: regular rate Rhythm: regular rhythm Heart sounds: S1 normal heart sound present, S2 normal heart sound present, no gallops, no murmurs and no rubs Neuro General: patient oriented x3 Extrem General: Yes normal to inspection, No no pedal edema and No calf tenderness Psych Appearance: grossly normal Mental Status: mental status grossly normal Speech and movement: Normal speech and movement present Assessment & Plan Assessment & Plan (1) Chest pain: Code(s): R07.9 - Chest pain, unspecified Category: Medical Plan: Report of intermittent chest tightness last visit. He has known history of LAD stent. Echocardiogram 04/18/2025 shows EF 60-65%, moderate LVH, no regional wall motion abnormalities. Pharmacological nuclear stress 05/02/2025 showing normal myocardial perfusion imaging. Currently no reports of anginal symptoms. (2) Atherosclerotic cardiovascular disease: Code(s): I25.10 - Atherosclerotic heart disease of [place] coronary artery without angina pectoris Category: Medical Plan: History of CAD with NSTEMI 12/2022. Cardiac catheterization with LAD stenosis and CM placed. Recent cardiac testing as above. Continue aspirin i ndefinitely. Continue atorvastatin with ideal LDL goal less than 70. Continue metoprolol. (3) Stented coronary artery: Comment: 01/12/2023 CM to proximal LAD Code(s): Z95.5 - Presence of coronary angioplasty implant and graft Category: Surgical Plan: As above (4) S/P cardiac catheterization: Comment: 01/12/2023 proximal LAD 50% stenosis, 10 mm in length CM placed Code(s): Z98.890 - Other specified postprocedural states Category: Surgical Plan: As above (5) MAGALIS on CPAP: Code(s): G47.33 - Obstructive sleep apnea (adult) (pediatric) Category: Medical Plan: He reports compliance with CPAP each night (6) Hyperlipidemia LDL goal <70: Code(s): E78.5 - Hyperlipidemia, unspecified Category: Medical Plan: LDL goal less than 70. Labs 04/02/2025 showed LDL 48. Continue atorvastatin Plan I discussed with the patient the importance of maintaining blood pressure control to prevent further cardiac complications. We reviewed the use of CPAP for sleep apnea and the management of leg swelling through salt reduction and lifestyle modifications. I advised him to bring his home blood pressure monitor to the next visit for calibration comparison. We reviewed with signs and symptoms of angina. Patient Instructions: - Continue taking all prescribed medications. - Use CPAP every night for sleep apnea. - Monitor blood pressure regularly and bring the monitor to the next visit for calibration check. - Reduce salt intake to manage edema. Patient was informed and verbally consented to the use of an ambient scribe for clinic note documentation during this visit. Visit time spent on chart review, interview, assessment, orders, documentation. Coding Level of Care Code Est Pt Level 4 (34166) Complex EM visit Add On G2211 Diagnoses Chest pain R07.9 Atherosclerotic cardiovascular disease I25.10 Stented coronary artery Z95.5 S/P cardiac catheterization Z98.890 MAGALIS on CPAP G47.33 Hyperlipidemia LDL goal <70 E78.5 Time Spent (min) 28
[2025-06-05 15:42] VITALS: BP 126/60; PULSE 64; BMI 36.5
--- OUTSIDE RECORDS SUMMARY | 2025-06-05 18:18 | XMS_ITS | Clinical Summary ---
Author Organization [facility] Address [address] [place] [address] Care Team Providers Care Screen Printing Supervisor Name Role Phone System, Provider Not In [...] season) 2025 06/30/2021, 09/29/2020, 09/08/2020 RSV Vaccine 50 years and older and Patients (1 - 1-dose 75+ series) 12/07/2039 Hepatitis B Vaccines Aged Out No long er eligible based on patient's age to complete this topic Insurance [facility] Care Teams Screen Printing Supervisor Relationship Specialty Start Date End Date System, Provider Not In PCP - General 12/17/23
--- OUTSIDE RECORDS SUMMARY | 2025-06-05 18:18 | XMS_ITS | Continuity of Care Document ---
Author Organization [facility] Address [address] [place], [place] Phone [phone] Care Team Providers Care Mill Tender Warm Up Name Role Phone Lavelle Helton MD Care Team Information Tourist Adviser Unavailable MARLEEN HENDERSON M.D. Care Team Information [...] Indications Order ing Provider Date Metformin HCL CB425wj Tablets ER 24HR 1 tab by mouth twice a day 180tabs R73.03 Marleen Henderson M.D. 01/31/2025 Zyllghkq7co/0.5ML Solution Auto-Inject administer 5 mg under the skin 1 time a week(off awaiting PA) 6ml Marleen Henderson M.D. 08/12/2024 BD Pen Needle/Mini/Ultra-Fin e/31G X 5mm31G X 5 mm Misc use 1 needle a day 30units E88.81 Marleen Henderson M.D. 05/06/2022 Lvfjzun66hr Chewtabs take 1 tablet by mouth every day 90units Marleen Henderson M.D. 11/14/2018 Levothyroxine Jkbiac06xrc Tablets Take 1 Tablet by mouth Daily 90tabs Marleen Henderson M.D. 07/05/2018 Metoprolol Succinate ER50mg Tablets ER 24HR TK 1 T PO qd->1/2 a day(07/2022)->1/d()->1/2(2023) Unknown Testosterone Qzrsydbun279zl/ml Solution 0.5 cubic centimeters injection every week 2ml Unknown Licorice for sugar Unknown Berberine Unknown Fish Oil Unknown Vit D 2000iu/d Unknown Vitamin [id number] Tablets 1 by mouth every day Unknown Kqmsmzprt3ua Tablets Take 1 Tablet By Mouth Daily Unknown Metamucil off lately Unknown 0 Combivent Tftidldu53-694ves/Act Aerosol Unknown Paroxetine HCL ER25mg Tablets ER 24HR Unknown Atorvastatin Tvjzpoh38nc Tablets 1/2 by mouth every day 90tabs Unknown Rgzxbuoyqj9tb Tablets as needed Unknown History Medications Zepbound2.5mg/0.5ML Solution Auto-Inject inject 2.5mg subcutaneously once a week 2ml Marleen Henderson M.D. 07/23/2024 - 08/12/2024 Nbhhjluk4xd/0.5ML Solution Auto-Inject administer 5 mg under the skin 1 time a week 2ml Marleen Henderson M.D. 03/27/2024 - 07/23/2024 Zepbound2.5mg/0.5ML Solution Auto-Inject inject 2.5mg subcutaneously once a week 2ml Marleen Henderson M.D. 03/21/2024 - 03/27/2024 Npcxjnsm7ml/0.5ML Solution Auto-Inject administer 5 mg under the skin 1 time a week 2ml Marleen Henderson M.D. 03/06/2024 - 03/21/2024 Zepbound2.5mg/0.5ML Solution Auto-Inject inject 2.5mg subcutaneously once a week 2ml Marleen Henderson M.D. 02/14/2024 - 03/06/2024 Mounjaro2.5mg/0.5ML Solution Pen-Inject inject 2.5mg subcutaneously q1week 2ml Marleen Henderson M.D. 02/12/2024 - 02/14/2024 Dycdqvoht54ch Tablets 1 tab by mouth every day 90tabs E88.8 10 Marleen Henderson M.D. 09/29/2023 - 09/29/2023 Lgslfpyby47fu Tablets 1 tab by mouth every day 90tabs Marleen Henderson M.D. 05/18/2023 - 04/23/2024 Vitamin N4450vko (5000 Ut) Capsules 1 tab by mouth every day 90caps E55.9 Marleen Henderson M.D. 09/21/2022 - 05/17/2023 Clonidine HCL0.1mg Tablets take 1 tablet by mouth at bedtime as directed 90tabs I10 Marleen Henderson M.D. 08/12/2022 - 05/17/2023 Lypeqqo70wh/3ML Solution Pen-Inject inject 0.6 cubic centimeters injection subcutaneous every day 15ml E88.8 1 Marleen Henderson M.D. 05/06/2022 - 08/12/2022 Testosterone Alsetmbhy316gh/ml Solution inject 0.3ml(60mg) Im every week 10ml E29.1 Marleen Henderson M.D. 02/24/2022 - 01/11/2023 BD TB Syringe 25GX5/8 Use One syringe Every Week 10units Marleen Henderson M.D. 02/24/2022 - 05/17/2023 Ijxzaopysq31dg Tablets 1 tab by mouth every day 90tabs I10 Marleen Henderson M.D. 02/04/2022 - 05/17/2023 Ebqkqdpruj5nh Tablets 1 by mouth every day 90tabs [...] 1 Marleen Henderson M.D. 02/12/2021 - 04/28/2021 Shvpnyvff7jf/24HR Patches 24HR apply 1 patch daily 30units E29.1 Marleen Henderson M.D. 02/12/2021 - 07/08/2021 Testosterone Catzloygj814wl/ml Solution 0.5 cubic centimeters injection every week 2ml E29.1 Marleen Henderson M.D. 11/13/2020 - 02/12/2021 BD TB Syringe 25GX5/8 Use One Every Week 4units Marleen Henderson M.D. 11/13/2020 - 02/12/2021 Ozempic (1 MG/Dose)2mg/1.5ML Solution Pen-Inject 1mg subcutaneously every week 9ml E88.8 1 Marleen Henderson M.D. 11/13/2020 - 02/03/2021 Oauirmsno7jv/24HR Patches 24HR apply 1 patch daily 30units Marleen Henderson M.D. 09/14/2020 - 11/13/2020 Ozempic (0.25 Or 0.5 MG/Dose)2mg/1.5ML Solution Pen-Inject 0.5 mg sub cutaneously every week 1.500ml E88.8 1 Marleen Henderson M.D. 08/14/2020 - 11/13/2020 Lswkowril3ee/24HR Patches 24HR apply 2 patch daily 60units E29.1 Marleen Henderson M.D. 05/01/2020 - 08/14/2020 Ozempic (0.25 Or 0.5 MG/Dose)2mg/1.5ML Solution Pen-Inject 0.25 mg sub cutaneously every week y9lxdbk then 0.5/week as tolerated 1.500ml E88.8 1 Marleen Henderson M.D. 05/01/2020 - 08/14/2020 BD TB Syringe 25GX5/8 Use One Every Week 15units Marleen Henderson M.D. 10/02/2019 - 08/14/2020 Metformin HCL DG378ma Tablets ER 24HR 1 by mouth every day 90tabs Marleen Henderson M.D. 08/19/2019 - 04/22/2020 Testosterone Nxqbdxgtx184kg/ml Solution 0.3 cubic centimeters injection every week 2ml E29.1 Marleen Henderson M.D. 08/16/2018 - 08/14/2020 1ML Syringe/Needle Slip Tip 25GX5/8 Sub-Q25G X 5/8 1 ML Misc use one every 1 weeks 15units E29.1 Marleen Henderson M.D. 08/16/2018 - 02/03/2021 Levothyroxine Nlzcwq94eto Tablets Take 1 Tablet Daily 90tabs Marleen Henderson M.D. 06/04/2018 - 07/05/2018 Obvhdgnt75.5mg/2.5GM (1.62%) Gel 1 apply packets to skin daily as directed 90pkt E29.1 Marleen Henderson M.D. 05/25/2018 - 05/28/2018 Yvjxniei40.25mg/1.25GM (1.62%) Gel place 2 packets onto skin a day(one month supply=2 boxes of 30pkt each) 112.5gm E29.1 Marleen Henderson M.D. 05/22/2018 - 07/05/2018 Trulicity0.75mg/0.5ML Solution Pen-Inject 0.75 mg subcutaneous every week 2ml Marleen Henderson M.D. 02/16/2018 - 07/05/2018 BD Pen Needle/Mini/Ultrafine/31G X 3/16 31G X 5 mm Misc 1 unit every day 100units Marleen Henderson M.D. 12/07/2017 - 07/06/2018 [facility] Gjyhscm39zg Chewtabs Take 1 Tablet By Mouth Every Day 30units Marleen Henderson M.D. 11/24/2017 - 11/14/2018 Hhsxwoj87yw/3ML Solution Pen-Inject 1 injection every day. E66.8 4units E88.8 1 Marleen Henderson M.D. 11/23/2017 - 02/09/2018 R73.03 E66.8 Metformin HCL HZ119fg Tablets ER 24HR 1 tab by mouth every day 90tabs E88.81 Marleen Henderson M.D. 09/28/2017 - 11/20/2017 Paroxetine HCL ER25mg Tablets ER 24HR 1/d Unknown - 05/06/2022 Xtfffnxwafqg909rt Tablets 2 Tablets Today, Then 1 Tablet Daily Unknown - 09/28/2017 Paroxetine HCL ER12.5mg Tablets ER 24HR 1/d Unknown - 08/14/2020 Bupropion Hydrochloride ER (XL)150mg Tablets ER 24HR 1/d with 771=239/d Unknown - 05/01/2020 Levothyroxine Kgdyar66jrr Tablets 1 by mouth every day Unknown - 06/04/2018 Testosterone Sfktlyvuq745at/ml Solution Unknown - 07/05/2018 Wenijwy00cw Chewtabs Take 1 Tablet By Mouth Every Day 30units Marleen Henderson M.D. - 11/24/2017 LamictalTablets Unknown - 12/25/2017 Paroxetine KZL35zx Tablets TK 1 T PO qd Unknown - 09/28/2017 Cwidwewueg93ba Tablets TK 2 TS PO D For 3 Days Unknown - 09/28/2017 Repatha Idsatknwk797ej/ml Solution Auto-Inject Unknown - 01/30/2025 Bupropion Hydrochloride ER (XL)150mg Tablets ER 24HR 2/d Unknown - 02/12/2021 Atorvastatin Mexwhkk10eg Tablets 1 by mouth every day 90tabs Unknown - 05/17/2023 Paroxetine HCL ER37.5mg Tablets ER 24HR 1/d Unknown - 05/17/2023 Zkoffmwa012xr Suspension Rec Unknown - 01/30/2025 Caqqtdlbud942pr Tablets Unknown - 01/30/2025 Gjijnqiz93qv Tablets Unknown - 04/05/2024 Metoprolol Succinate ER50mg Tablets ER 24HR Unknown - 05/17/2023 Egpyafcjs579-8.5mcg/Ac t Aerosol Unknown - 01/30/2025 Vsvnimtktf25ik Tablets Take 1 Tablet By Mouth Every Day Unknown - 01/27/2023 Vit B12 Inections 1000mg x2 injections a week(Valcon) Unknown - 01/30/255 Glxtseoyzpgg77dq Capsules Unknown - 09/28/2017 Bupropion HCL ER (XL)300mg Tablets ER 24HR 1/d with 150-450/d Unknown - 05/01/2020 Escitalopram Talujdi8br Tablets Unknown - 09/28/2017 Nitroglycerin0.4mg Tablets Noemi Finley MD - 09/28/2017 Testosterone Qfxhkkpyz779mt/ml Solution Unknown - 09/28/2017 Levothyroxine Wvxuzj88iqt Tablets 1 take tablet once daily 90tabs Marleen Henderson M.D. - 02/09/2018 Qdyncriqxjk08ji Tablets Unknown - 09/28/2017 Doxycycline Tintved835fi Capsules Unknown - 09/28/2017 Phenazopyridine AAS053sh Tablets Unknown - 09/28/2017 Luieyresfaq795tx Tablets TK 1 T PO bid Unknown - 09/28/2017 Sulfacetamide Jspicm43% Solution Unknown - 09/28/2017 Paroxetine BOR05tm Tablets Take 1 Tablet By Mouth Every Day Unknown - 09/28/2017 Ketorolac Kihvrlqiwvxp49dy Tablets Unknown - 09/28/2017 Paroxetine ZTD22zu Tablets Unknown - 09/28/2017 Ventolin RLN570(90Base) mcg/Act Aerosol Inl 2 Puffs PO Q 4 H PRF Wheezing Unknown - 09/28/2017 Paroxetine FMV04ht Tablets Unknown - 09/28/2017 Bupropion HCL ER (SR)100mg Tablets ER 12HR Unknown - 11/20/2017 Trazodone GVC40xu Tablets Unknown - 09/28/2017 Isosorbide Dinitrate ER40mg Tablets ER Take 1 Tablet Once A Day Unknown - 09/28/[address] Take One Capsule By Mouth Every Day Unknown - 09/28/2017 Naltrexone QTF49wg Tablets Once A Day Unknown - 09/28/[address] TK 2 TS PO tid Unknown - 09/28/2017
--- OUTSIDE RECORDS SUMMARY | 2025-06-05 18:18 | XMS_ITS | Clinical Summary ---
Author Organization [facility] Address [address] [place] [address] Phone Care Team Providers Care Field Irrigation Worker Name Role Phone Krys Norris MD Primary Care Provider [phone] Allergies Active Allergy Reactions Criticality Noted Date [...] TABLET DAILY 90 tablet 1 5 Active [id number] a-fish oil 600-1,000 mg capsule Take 1 capsule by mouth 2 (two) times daily morning and afternoon. 180 capsule 1 5 Active aspirin 81 mg chewable tablet CHEW 1 TABLET BY MOUTH EVERY DAY 90 tablet 1 5 Active Active Problems Problem Noted Date Diagnosed Date Class 2 severe obesity with serious comorbidity and body mass index (BMI) of 37.0 to 37.9 in adult 12/23/2024 NSTEMI (non-ST elevated myoc ardial infarction) ([facility] V24, [facility] V28) 01/27/2023 HLD (hyperlipidemia) 05/17/2022 Phelps's esophagus 11/01/2021 Hypogonadism in male 08/06/2021 MAGALIS on CPAP 08/06/2021 Generalized anxiety disorder 08/02/2021 Hypothyroidism 08/02/2021 Primary hypertension 08/02/2021 Encounters Date Type Department Care Team Description 06/03/2025 Lab Requisition [facility] [address] [facility] [employer] [place] [address] Pato Tillman MD Malignant neoplasm of prostate ([facility] V24, [facility] V28) 05/09/2025 Lab Requisition [facility] [address] [facility] [employer] [place] [address] Pato Tillman MD Testicular hypofunction 04/15/2025 8:15 AM EDT Telemedicine Internal Medicine - [address] [phone] Lorene Lubin NP NSTEMI (non-ST elevated myocardial infarction) ([facility] V24, [facility] V28) (Primary Dx); Primary hypertension; Mixed hyperlipidemia; MAGALIS on CPAP; Chronic obstructive pulmonary disease, unspecified COPD type ([facility] V24, [facility] V28); Hypothyroidism, unspecified type; Generalized anxiety disorder; Anxiety and depression; Hypogonadism in male 04/10/2025 7:24 AM EDT - 04/10/2025 11:59 PM EDT Hospital Encounter [facility] CT Scan [address] [place] [address] Encounter for screening for malignant neoplasm of respiratory organs; Nicotine dependence, cigarettes, uncomplicated Discharge Disposition: Home or Self Care 03/21/2025 Telephone Lung Screening Program - [place] [address] [facility] [address] [place] [address] [employer] [place] from Last 3 Months Immunizations Immunization Administration Dates Next Due Influenza trivalent, 0.5mL, [...] Date Site/Laterality Comments OTHER SURGICAL HISTORY PROCEDURE: SC INSTLJ VIA CHEST TUBE/CATH AGENT FOR PLEURODESIS TONSILLECTOMY PROCEDURE: HISTORICAL TONSILLECTOMY NASAL SEPTUM SURGERY PROCEDURE: SC SEPTOPLASTY/SUBMUCOUS RESECJ W/WO CARTILAGE GRF; COMMENT: X2 CARPAL TUNNEL RELEASE Bilateral PROCEDURE: HISTORICAL CARPAL TUNNEL REL OTHER SURGICAL HISTORY PROCEDURE: SC ANES VASECTOMY UNI/BI INCL OPEN URETHRAL PX OTHER SURGICAL HISTORY 12/2022 PROCEDURE: SC PATIENT HAS A CORONARY ARTERY STENT; COMMENT: [...] V28) DX:NSTEMI (non- ST elevated myocardial infarction) ([facility]) Family History Medical History Relation Name Comments [...] care for your loved ones. For example, exceptional children teacher or elderly care for an older adult? [...] Date Recorded What is your living situation? Unrecognized valu e 01/08/2025 Interpersonal Safety Answer Date Record ed Physical Abuse Unrecognized value 06/17/2024 Verbal Abuse Unrecognized value 06/17/2024 Sex and Gender Information Value Date [...] 01/08/2025 3:09 PM EDT Plan of Treatment Health Maintenance Due Date Last Done Comments Diabetes: Annual Foot Exam 1974 Zoster Vaccines (1 of 2) 12/07/1983 RSV Immunization Adult Patients (1 - Risk 50-74 years 1-dose series) 2014 HIV Screening 07/03/2022 Diabetes: Annual Urine Albumin-Creatinine Ratio (uACR) 09/06/2024 08/02/2021 COVID-19 Vaccine (4 - 2024-2 6 season) [...] Procedure Name Priority Date/Time Associated Diagnosis Comments COMPLETE BLOOD COUNT Routine 06/03/2025 7:59 AM EST Malignant neoplasm of prostate ([facility] V24, [facility] V28) COMPLETE BLOOD COUNT Routine 05/09/2025 8:58 AM EDT Testicular hypofunction CT LUNG SCREENING Routine 04/10/2025 7:3 4 AM EDT Encounter for screening for malignant neoplasm of respiratory organs Nicotine dependence, cigarettes, uncomplicated EXTERNAL CLINICAL LAB 04/04/2025 EXTERNAL CLINICAL LAB 04/03/2025 EXTERNAL ULTRASOUND REPORT 04/02/2025 HEMOGLOBIN A1C Routine 01/13/2025 9:50 AM EDT [...] Relevant to Health Maintenance Results * (ABNORMAL) Complete blood count (06/03/2025 7:59 AM EST) Only the most recent of2 resultswithin the time period is included. [facility] Signature WBC 7.4 4.8 - 10.8 K/mcL LAB HEMETOLOGY METHOD 06/03/2025 12:59 PM [facility] RBC 6.30(H) 4.50 - 5.50 M/mcL LAB HEMETOLOGY METHOD 06/03/2025 12:59 PM [facility] Hemoglobin 17.5 13.5 - 17.5 g/dL LAB HEMETOLOGY METHOD 06/03/2025 12:59 PM [facility] Hematocrit 54.7(H) 42.0 - 54.0 % LAB HEMETOLOGY METHOD 06/03/2025 12:59 PM [facility] MCV 86.7 79.0 - 98.0 FL LAB HEMETOLOGY METHOD 06/03/2025 12:59 PM [facility] LAB MCH 27.7 27.0 - 32.0 pcg LAB HEMETOLOGY METHOD 06/03/2025 12:59 PM [facility] MCHC 32.0 32.0 - 37.0 g/dL LAB HEMETOLOGY METHOD 06/03/2025 12:59 PM [facility] RDW 14.6 11.0 - 15.0 % LAB HEMETOLOGY METHOD 06/03/2025 12:59 PM [facility] Platelets 227 130 - 400 K/mcL LAB HEMETOLOGY METHOD 06/03/2025 12:59 PM [facility] MPV 10.4 7.0 - 11.0 FL LAB HEMETOLOGY METHOD 06/03/2025 12:59 PM [facility] NRBC 0.0 <1.0 % LAB HEMETOLOGY METHOD 06/03/2025 12:59 PM [facility] NRBC Absolute 0.00 <0.10 K/mcL LAB HEMETOLOGY METHOD 06/03/2025 12:[address] [facility] Blood Venous blood specimen / Unknown 06/03/2025 7:59 AM EST 06/03/2025 12:51 PM EST us Pato Tillman MD LAB BLOOD ORDERABLES Final R esult [facility] [address] [place] [address], * CT Lung Screening (04/10/2025 7:34 AM [...] Signed Date: 04/15/2025 15:23 ET Workstation ID: [id number] Transcribed By: Self Edit Transcribed Date: 04/15/2025 15:11 ET Narrative 04/15/2025 3:23 PM EDT EXAMINATION: CT CHEST WITHOUT CONTRAST LUNG CANCER SCREENING, LOW DOSE CLINICAL INFORMATION: Lung cancer screening. Current smoker. COMPARISON: Portions of previous 04/08/24 TECHNIQUE: Multidetector CT. Examination of the chest. Examination of the chest without IV contrast. Reformatting in the coronal and sagittal planes. Device: [employer]an Race VCT DLP: 182 mGy-cm CTDI: 4.83 Dose [...] in the coronal and sagittal planes. Device: [employer]an Race VCT DLP: 182 mGy-cm CTDI: 4.83 Dose [...] Signed Date: 04/15/2025 15:23 ET Workstation ID: [id number] Transcribed By: Self Edit Transcribed Date: 04/15/2025 15:11 ET us Ana Broderick MD [facility] CT PROCEDURES Final Result * External clinical lab (04/04/2025) Only the most recent of2 resultswithin the time period is included. us Provider [facility] LAB BLOOD ORDERABLES Fin al Result * External Ultrasound Report (04/02/2025) Anatomical Region Laterality Modality Ultrasound us Provider [facility] IM US PROCEDURES Final Result * Hemoglobin A1c (01/13/2025 9:50 AM EDT) Hemoglobin A1C 5.8 <6.5 % LAB CHEMISTRY METHOD 01/13/2025 2:11 PM EDT [facility] Mean Bld Glu Estim. 120 mg/dL LAB CHEMISTRY METHOD 01/13/2025 2:11 PM EDT [facility] Blood Venous blood specimen / Unknown Venipuncture / Unknown 01/13/2025 9:50 AM EDT 01/13/2025 9:50 AM EDT [place] [facility] LAB BLOOD ORDERABLES Fi nal Result [facility] [address] [place] [address], * (ABNORMAL) Comprehensive metabolic panel (01/08/2025 3:39 PM EDT) Sodium 141 133 - 145 mmol/L LAB CHEMISTRY METHOD 01/08/2025 7:17 PM [facility] Potassium 3.6 3.5 - 5.5 mmol/L LAB CHEMISTRY METHOD 01/08/2025 7:17 PM [facility] Chloride 105 96 - 110 mmol/L LAB CHEMISTRY METHOD 01/08/2025 7:17 PM [facility] CO2 27 21 - 32 mmol/L LAB CHEMISTRY METHOD 01/08/2025 7:17 PM [facility] Anion Gap 9 3 - 11 LAB CHEMISTRY METHOD 01/08/2025 7:17 PM [facility] Glucose 169(H) 70 - 100 mg/dL LAB CHEMISTRY METHOD 01/08/2025 7:17 PM [facility] BUN 15 5 [...] LAB CHEMISTRY METHOD 01/08/2025 7:17 PM EDT [facility] AST (SGOT) 25 10 - 42 unit/L LAB CHEMISTRY METHOD 01/08/2025 7:17 PM EDT [facility] ALT (SGPT) 22 10 - 60 unit/L LAB CHEMISTRY METHOD 01/08/2025 7:17 PM EDT [facility] Alkaline Phosphatase 143(H) 42 - 121 unit/L LAB CHEMISTRY METHOD 01/08/2025 7:17 PM EDT [facility] Total Protein 6.7 6.0 - 8.0 g/dL LAB CHEMISTRY METHOD 01/08/2025 7:17 PM EDT [facility] Albumin 3.5 3.2 - 5.0 g/dL LAB CHEMISTRY METHOD 01/08/2025 7:17 PM EDT [facility] Total Bilirubin 0.4 0.0 - 1.4 mg/dL LAB CHEMISTRY METHOD 01/08/2025 7:17 PM EDT [facility] Blood Venous blood specimen / Unknown Venipuncture / Unknown 01/08/2025 3:39 PM EDT 01/08/2025 3:39 PM EDT Grace Donis DO LAB BLOOD ORDERABLES Final Res ult [facility] [address] [place] [address], * Diabetes Eye Exam (08/02/2024) Provider [facility] HEALTH MAINTENANCE Final Result * COLONOSCOPY Anesthesia - [facility]; [facility] ENDOSCOPY (06/17/2024 8:01 AM [...] years for surveillance. Narrative 06/17/2024 7:55 AM [facility] GI Patient Name: Katia Cuello Procedure [...] retroflexion views. Procedure Code(s): --- Professional --- 73728, Colonoscopy, flexible; with removal of tumor(s), polyp(s), or other lesion(s) by snare technique Diagnosis Code(s): --- Professional --- Z86.010, Personal history of colonic polyps D12.0, Benign neoplasm of cecum D12.3, Benign neoplasm of transverse colon (hepatic flexure or splenic flexure) CPT copyright 2020 [employer]. All rights reserved. The codes documented in this report are preliminary and upon laboratory specialist review may be revised to meet current compliance requirements. Curly Fam MD 06/17/2024 7:55:29 AM This report has been signed electronically.Curly Fam MD Number of Addenda: 0 Note Initiated On: 06/17/2024 7:35 AM Scope In: Scope Out: Endoscopy Department at [facility] - [address] [place] [phone] Procedure Note Curly Fam MD - 06/17/2024 [facility] GI Patient Name: Katia Cuello Procedure [...] retroflexion views. Procedure Code(s): --- Professional --- 57747, Colonoscopy, flexible; with removal of tumor(s), polyp(s), or other lesion(s) by snare technique Diagnosis Code(s): --- Professional --- Z86.010, Personal history of colonic polyps D12.0, Benign neoplasm of cecum D12.3, Benign neoplasm of transverse colon (hepatic flexure or splenic flexure) CPT copyright 2020 [employer]. All rights reserved. The codes documented in this report are preliminary and upon laboratory specialist reviewmay be revised to meet current compliance requirements. Curly Fam MD 06/17/2024 7:55:29 AM This report has been signed electronically.Curly Fam MD Number of Addenda: 0 Note Initiated On: 06/17/2024 7:35 AM Scope In: Scope Out: Endoscopy Department at [facility] - [address] [place] [phone] IMPRESSION: - One 10 mm polyp in [...] - Final * (ABNORMAL) Lipid panel (05/12/2022) [facility] LDL/HDL Ratio 4 0 - 4 Triglycerides 110 0 - 150 mg/dL Cholesterol 139 0 - 200 mg/dL HDL 32(A) >=40 mg/dL LDL Cholesterol 85 0 - 100 mg/dL Blood Venous blood specimen / Unknown Historical Provider LAB BLOOD ORDERABLES Doreen l Result * Hepatitis C Screening (11/08/2021) [facility] Hepatitis C Screening abstracted Historical Provider HEALTH MAINTENANCE Final Result * Urine Albumin Creatinine Ratio (08/02/2021) [facility] Urine Albumin Creatinine Ratio abstracted us Historical Provider HEALTH MAINTENANCE Final Result from Last 3 Months or Most Recently Relevant to Health Maintenance Insurance [facility] Care Teams Field Irrigation Worker Relationship Specialty Start Date End Date Krys Norris MD [address] [facility] [place] [phone] PCP - General Internal Medicine 03/26/25
--- OUTSIDE RECORDS SUMMARY | 2025-06-05 18:18 | XMS_ITS | Encounter Summary ---
Author Organization [facility] Address [address] [place] [address] Care Team Providers Care On Site Manager Name Role Phone Krys Norris MD Primary Care Provider [phone] Encounter Details Date Type Department Care Team (Late st Contact Info) Description 05/09/2025 Lab Requisition [facility] - Main Lab [address] [facility] [place] [phone] Pato Tillman MD [address] [place] [phone] Testicular hypofunction Social History Tobacco Use Types Packs/Day Years [...] for your loved ones. For example, child welfare social worker or elderly care for an older adult? [...] as of this encounter Plan of Treatment Not on file documented as of this encounter Procedures Procedure Name Priority Date/Time Associated Diagnosis Comments COMPLETE BLOOD COUNT Routine 05/09/2025 8:58 AM EDT Testicular hypofunction documented in this encounter Results * (ABNORMAL) Complete blood count (05/09/2025 8:58 AM EDT) [facility] WBC 7.4 4.8 - 10.8 K/mcL LAB HEMETOLOGY METHOD 05/09/2025 2:17 PM EDT [facility] RBC 6.30(H) 4.50 - 5.50 M/mcL LAB HEMETOLOGY METHOD 05/09/2025 2:17 PM EDT [facility] Hemoglobin 17.2 13.5 - 17.5 g/dL LAB HEMETOLOGY METHOD 05/09/2025 2:17 PM EDT [facility] Hematocrit 54.8(H) 42.0 - 54.0 % LAB HEMETOLOGY METHOD 05/09/2025 2:17 PM EDT [facility] MCV 87.3 79.0 - 98.0 FL LAB HEMETOLOGY METHOD [facility]/09[facility] MCH 27.4 27.0 - 32.0 pcg LAB HEMETOLOGY METHOD 05/09/2025 2:[facility] MCHC 31.4(L) 32.0 - 37.0 g/dL LAB HEMETOLOGY METHOD 05/09/2025 2:[facility] RDW 13.9 11.0 - 15.0 % LAB HEMETOLOGY METHOD 05/09/2025 2:17 PM EDT [facility] Platelets 248 130 - 400 K/mcL LAB HEMETOLOGY METHOD 05/09/2025 2:17 PM EDT [facility] MPV 10.6 7.0 - 11.0 FL LAB HEMETOLOGY METHOD 05/09/2025 2:17 PM EDT [facility] NRBC 0.0 <1.0 % LAB HEMETOLOGY METHOD 05/09/2025 2:17 PM EDT [facility] NRBC Absolute 0.00 <0.10 K/mcL LAB HEMETOLOGY METHOD 05/09/2025 2:17 PM EDT [facility] Blood Venous blood specimen / Unknown 05/09/2025 8:58 AM EDT 05/09/2025 1:37 PM EDT us Pato Tillman MD LAB BLOOD ORDERABLES Final R esult [facility] [address] [place] [address], documented in this encounter Visit Diagnoses Diagnosis Testicular hypofunction Other testicular hypofunction documented in this encounter Additional Health Concerns Assessment Noted Time PHQ-9 Depression Total Score: 12 025 2:22 PM EDT documented as of this encounter Care Teams On Site Manager Relationship Specialty Start Date End Date Krys Norris MD [address] [place] [address] PCP - General Internal Medicine 03/26/25 documented as of this encounter
--- OUTSIDE RECORDS SUMMARY | 2025-06-05 18:18 | XMS_ITS | Encounter Summary ---
Author Organization [facility] Address [address] [place] [address] Care Team Providers Care Surgical Assistant Name Role Phone Krys Norris MD Primary Care Provider [phone] Encounter Details Date Type Department Care Team (Late st Contact Info) Description 07/31/2024 Lab Requisition [facility] - Main Lab [address] [facility] [place] [phone] Stephan Bear MD [address] [place] [phone] Elevated prostate specific antigen (PSA) Social History [...] (07/29/2024) Final Diagnosis A. Prostate, Left Middle [place] (Core Biopsy): - Benign prostate tissue. B. Prostate, Left Lateral [place] (Core Biopsy): -PROSTATIC ACINAR ADENOCARCINOMA CONVENTIONAL (USUAL) TYPE -[place] Score: (3+3=6) , Grade Group 1 Total [...] Benign prostate tissue. G. Prostate, Right [place] (Core Biopsy): -PROSTATIC ACINAR ADENOCARCINOMA CONVENTIONAL (USUAL) TYPE -[place] Score: (3+3=6) , Grade Group 1 Total Number of Cores: 1 Number of Positive Cores: 1 Percent of Prostatic Tissue Discontinuously Involved by Tumor: 60% H. Prostate, Right Lateral [place] (Core Biopsy): - Benign prostate tissue. I. [...] Biopsy): -PROSTATIC ACINAR ADENOCARCINOMA CONVENTIONAL (USUAL) TYPE -[place] Score: (3+3=6) , Grade Group 1 Total [...] of multiple fragmented cores 08/08/2024 12:18 PM [facility] Comment E, F, G, H) PIN4 immunohistology supports the morphological diagnosis. PIN4 performed at [facility], [address], [place] [address], CLIA # [id number] 08/08/2024 12:18 PM [facility] Clinical Information Elevated PSA Last PSA total = 4.9 (2023) [id number] 08/08/2024 12:18 PM [facility] Gross Description A. Prostate, Left Mid [place] Biopsy: Received, properly labeled, are two H and E stained slides and two unstained slides. B. Prostate, Left Lat [place] Biopsy: Received, properly labeled, are two H [...] two unstained slides. G. Prostate, Right Mid [place] Biopsy: Received, properly labeled, are two H and E stained slides and two unstained slides. H. Prostate, Right Lat [place] Biopsy: Received, properly labeled, are two H [...] unstained slides. /al 08/08/2024 12:18 PM EST [facility] Disclaimer Unless otherwise specified, all tissue is 10% NB formalin fixed and paraffin embedded. Technical pathology services provided by [facility] [address] [place] [address] (CLIA #[id number]/Hortensia Lopez MD, Wine Cellar Worker) 08/08/2024 12:18 PM EST [facility] Tissue Prostate / Unknown 07/29/20242024 [...] Unknown 07/29/2024 07/31/2024 8: 40 AM EST us Stephan Bear MD LAB PATHOLOGY ORDERABLES Final Result [facility] [address] [place] [address], documented in this encounter Visit Diagnoses Diagnosis Elevated prostate specific antigen (PSA) documented in this encounter Additional Health Concerns Infection Onset Date Last Indicated Resolved Time COVID-19 08/15/2024 08/15/2024 09/14/2024 7:04 PM EST documented as of this encounter Care Teams Surgical Assistant Relationship Specialty Start Date End Date Krys Norris MD [address] [place] [address] PCP - General Internal Medicine 03/26/25 documented as of this encounter
--- OUTSIDE RECORDS SUMMARY | 2025-06-05 18:18 | XMS_ITS | Encounter Summary ---
Author Organization [facility] Address [address] [place] [address] Care Team Providers Care Music Composer Name Role Phone Krys Norris MD Primary Care Provider [phone] Encounter Details Date Type Department Care Team (Late st Contact Info) Description 06/03/2025 Lab Requisition [facility] - Main Lab [address] [facility] [place] [phone] Pato Tillman MD [address] [place] [phone] Malignant neoplasm of prostate ([facility] V24, [facility] V28) Social History Tobacco Use Types Packs/Day Years [...] your loved ones. For example, child care supervisor or elderly care for an older adult? [...] 7:59 AM EST Malignant neoplasm of prostate ([facility] V24, [facility] V28) documented in this encounter Results * (ABNORMAL) Complete blood count (06/03/2025 7:59 AM EST) [facility] WBC 7.4 4.8 - 10.8 K/mcL LAB HEMETOLOGY METHOD 06/03/2025 12:59 PM EST [facility] RBC 6.30(H) 4.50 - 5.50 M/mcL LAB HEMETOLOGY METHOD 06/03/2025 12:59 PM [facility] Hemoglobin 17.5 13.5 - 17.5 g/dL LAB HEMETOLOGY METHOD 06/03/2025 12:59 PM [facility] Hematocrit 54.7(H) 42.0 - 54.0 % LAB HEMETOLOGY METHOD 06/03/2025 12:59 PM [facility] MCV 86.7 79.0 - 98.0 FL LAB HEMETOLOGY METHOD 06/03/2025 12:59 PM [facility] MCH 27.7 27.0 - 32.0 pcg LAB HEMETOLOGY METHOD 06/03/2025 12:59 PM [facility] MCHC 32.0 32.0 - 37.0 g/dL LAB HEMETOLOGY METHOD 06/03/2025 12:59 PM [facility] RDW 14.6 11.0 - 15.0 % LAB HEMETOLOGY METHOD 06/03/2025 12:59 PM [facility] Platelets 227 130 - 400 K/mcL LAB HEMETOLOGY METHOD 06/03/2025 12:59 PM [facility] MPV 10.4 7.0 - 11.0 FL LAB HEMETOLOGY METHOD 06/03/2025 12:59 PM [facility] NRBC 0.0 <1.0 % LAB HEMETOLOGY METHOD 06/03/2025 12:59 PM [facility] NRBC Absolute 0.00 <0.10 K/mcL LAB HEMETOLOGY METHOD 06/03/2025 12:59 PM EST [facility] Blood Venous blood specimen / Unknown 06/03/2025 7:59 AM EST 06/03/2025 12:51 PM EST us Pato Tillman MD LAB BLOOD ORDERABLES Final R esult [facility] [address] [place] [address], documented in this encounter Visit Diagnoses Diagnosis Malignant neoplasm of prostate (CMS/HCC V24, CMS/HCC V28) Malignant neoplasm of prostate documented in this encounter Additional Health Concerns Assessment Noted Time PHQ-9 Depression Total Score: 12 01/08/ 025 2:22 PM EDT documented as of this encounter Care Teams Music Composer Relationship Specialty Start Date End Date Krys Norris MD [address] [place] [phone] PCP - General Internal Medicine 03/26/25 documented as of this encounter
== END 2025-06-05 16:12 | disposition home or self-care (01) ==
LOC: HO.HCS 15:03
PROVIDERS: PCP Internal Medicine; Visit Provider Nurse Practitioner Family
DX: R07.9 Chest pain, unspecified (principal); I25.10 Atherosclerotic heart disease of native coronary artery without angina pectoris; Z95.5 Presence of coronary angioplasty implant and graft; Z98.890 Other specified postprocedural states; G47.33 Obstructive sleep apnea (adult) (pediatric); E78.5 Hyperlipidemia, unspecified
CPT/HCPCS: 99214